=== PATIENT | male | born 1950 | race Caucasian/White ===

== ENCOUNTER 2016-09-05 21:31 | Emergency (ER) | payer OTHER ==
[~2016-09-05] VITALS: Ht 172.7 cm; Wt 74.1 kg
[~2016-09-05 21:31] MED LIST: ALBU2.5I INH; ATOR80TA PO; CARV6.25 PO; CLOP75 PO; DIGO0.12 PO; FURO1TAB93 PO; FURO80 PO; K-EF25TA PO; LISI2.5T3 PO; LORA0.5T PO; NEUR600T PO; NITR0.4S SL; ROBA750T3 PO; SPIR25 PO; ST JTAB PO; TYLE500T PO; VIAG100T PO
[2016-09-05 21:35] VITALS: BP 132/88; PULSE 110; RESP 20; TEMP 98.1; O2SAT 98
[2016-09-05 21:40] VITALS: RESP 20
--- NOTE | 2016-09-05 21:48 | PD ---
HPI Chief Complaint: Respiratory Symptoms Time Seen by Provider: 21:37 Travel History International Travel<30 days: Yes Contact w/Intl Traveler<30days: Yes Traveled to known affect area: Yes History of Present Illness HPI This 66-year-old male is complaining of shortness of breath. He says he gets short of breath tonight. He has a history of CHF and COPD. He has not smoked cigarettes but he does smoke he states now. He has a history of coronary artery disease and had quadruple bypass in 2005 and a stent placed in 2008. He has not had any recent chest pain. He is seeing his private doctor for abdominal pain. He's been going for the past 6 weeks or so he's had a CAT scan to apparently was not diagnostic and has been scheduled for a GI appointment next week. He is having some lower abdominal pain. The pain is not any worse today. He has not had chest pain today or fever or chills. He does say that about a month ago he was taken off of lisinopril because his blood pressure was too low PFSH Past Medical History Hx Anticoagulant Therapy: Yes (325MG ASA) Anemia: Yes Asthma: No Atrial Fibrillation: Yes Blood Disorders: No Anxiety: Yes Depression: No Heart Rhythm Problems: Yes Cancer: No Cardiac Catheterization: Yes Cardiomyopathy: Yes Cardiovascular Problems: Yes (a-fib) High Cholesterol: Yes Chemotherapy: No Chest Pain: Yes Congestive Heart Failure: Yes COPD: Yes Cerebrovascular Accident: Yes (TIA's 1989) Coronary Artery Disease: Yes Diabetes: No Diminished Hearing: No Endocrine: Yes Genitourinary: No Hypertension: Yes Implanted Vascular Access Dvce: Yes (PACER/DEFIBRILLATOR-[employer]) Musculoskeletal: No Neurologic: No Psychiatric: No Reproductive: No Respiratory: Yes (COPD) Immunizations Current: No Myocardial Infarction: Yes Radiation Therapy: No Sleep Apnea: No Thyroid Disease: No Past Surgical History Abdominal Surgery: Yes AICD: Yes ([employer]; PACER/AICD) Appendectomy: No Body Medical Devices: PACER X 3 SEPARATE VISITS. Cardiac Surgery: Yes Cholecystectomy: No Coronary Artery Bypass Graft: Yes (x4) Coronary Stent: Yes Joint Replacement: No Oral Surgery: Yes Pacemaker: Yes (Pacer/defibrillator) Thoracic Surgery: Yes Tonsillectomy: Yes Other Surgery: Yes (CABG X4, AICD ) Family History Family Hypercholesterolemia: Yes Social History Alcohol Use: Yes (OCC) Tobacco Use: Yes Substance Use: No Allergies-Medications (Allergen,Severity, Reaction): Coded Allergies: Cymbalta (Verified Allergy, Severe, Anaphylaxis, 09/05/16) Tramadol (Verified Allergy, Severe, THROAT SWELLING, 09/05/16) White Fish (Verified Allergy, Severe, Anaphylaxis/HIVES, 09/05/16) MRI PRECAUTION (Verified Adverse Reaction, Severe, PATIENT HAS A PACEMAKER , 09/05/16) Uncoded Allergies: MAYONAISE (Allergy, Severe, 02/19/09) ASPARTAME (Allergy, Intermediate, HYPERTENSION, 09/29/11) Reported Meds & Prescriptions Reported Meds & Active Scripts Active Reported Furosemide 40 Mg Tab 40 Mg PO HS Furosemide 80 Mg Tab 80 Mg PO DAILY Acetaminophen 325 Mg Tab 650 Mg PO Q4-6H PRN Aspirin 81 (Aspirin) 81 Mg Tabdr 81 Mg PO DAILY Clopidogrel (Clopidogrel Bisulfate) 75 Mg Tab 75 Mg PO BID Nitrostat SL (Nitroglycerin) 0.4 Mg Subl 0.4 Mg SL DIRECTED PRN 1 tablet under the tongue as needed for chest pain. Repeat every 5 minutes for a total of 3 DOSES or call 911 if NO relief. Ventolin Hfa 18 GM Inh (Albuterol Sulfate) 90 Mcg/Act Aer 2 Puff INH Q4H PRN Atorvastatin (Atorvastatin Calcium) 80 Mg Tab 80 Mg PO HS Gabapentin 600 Mg Tab 600 Mg PO TID Methocarbamol 750 Mg Tab 1,500 Mg PO TID Lorazepam 0.5 Mg Tab 0.5 Mg PO TID PRN Carvedilol 6.25 Mg Tab 6.25 Mg PO BID Digoxin 0.125 Mg Tab 0.125 Mg PO DAILY Spironolactone 25 Mg Tab 25 Mg PO DAILY Review of Systems General / Constitutional: No: Fever, Chills Eyes: No: Diploplia HENT: No: Headaches, Vertigo Cardiovascular: Positive: Dyspnea on exertion, No: Chest Pain or Discomfort, Palpitations Respiratory: Positive: Shortness of Breath, No: Cough, Wheezing, Hemoptysis Gastrointestinal: No: Nausea, Vomiting Genitourinary: No: Frequency, Dysuria Musculoskeletal: No: Myalgias, Arthralgias Skin: No Rash, No Itching Neurologic: No: Weakness, Dizziness Endocrine: No: Heat Intolerance Hematologic/Lymphatic: No: Easy Bruising Physical Exam Narrative GENERAL: Thin chronically ill appearing male SKIN: Focused skin assessment warm/dry. HEAD: Atraumatic. Normocephalic. EYES: Pupils equal and round. No scleral icterus. No injection or drainage. ENT: No nasal bleeding or discharge. Mucous membranes pink and moist. NECK: Trachea midline. No JVD. CARDIOVASCULAR: Regular rate and rhythm. No murmur appreciated. RESPIRATORY: There are bibasilar rales Breath sounds equal bilaterally. GASTROINTESTINAL: Abdomen soft, non-tender, nondistended. Hepatic and splenic margins not palpable. MUSCULOSKELETAL: No obvious deformities. No clubbing. No cyanosis. Trace edema. NEUROLOGICAL: Awake and alert. No obvious cranial nerve deficits. Motor grossly within normal limits. Normal speech. PSYCHIATRIC: Appropriate mood and affect; insight and judgment normal. Data Data Last Documented VS Vital Signs Date Time Temp Pulse Resp B/P Pulse Ox O2 Delivery O2 Flow Rate FiO2 09/05/16 21:40 Room Air 09/05/16 21:40 20 09/05/16 21:35 98.1 110 98 Orders Electrocardiogram (09/05/16 21:43) Complete Blood Count With Diff (09/05/16 21:43) Comprehensive Metabolic Panel (09/05/16 21:43) Troponin I (09/05/16 21:43) B-Type Natriuretic Peptide (09/05/16 21:43) Urinalysis - C+S If Indicated (09/05/16 21:43) Magnesium (Mg) (09/05/16 21:43) Chest, Single Ap (09/05/16 21:43) Furosemide Inj (Lasix Inj) (09/05/16 22:30) Labs Laboratory Tests Test 09/05/16 21:49 White Blood Count 10.0 TH/MM3 Red Blood Count 5.36 MIL/MM3 Hemoglobin 17.0 GM/DL Hematocrit 52.1 % Mean Corpuscular Volume 97.2 FL Mean Corpuscular Hemoglobin 31.6 PG Mean Corpuscular Hemoglobin 32.5 % Concent Red Cell Distribution Width 12.8 % Platelet Count 268 TH/MM3 Mean Platelet Volume 10.9 FL Neutrophils (%) (Auto) 73.4 % Lymphocytes (%) (Auto) 19.2 % Monocytes (%) (Auto) 4.6 % Eosinophils (%) (Auto) 2.5 % Basophils (%) (Auto) 0.3 % Neutrophils # (Auto) 7.3 TH/MM3 Lymphocytes # (Auto) 1.9 TH/MM3 Monocytes # (Auto) 0.5 TH/MM3 Eosinophils # (Auto) 0.3 TH/MM3 Basophils # (Auto) 0.0 TH/MM3 CBC Comment DIFF FINAL Differential Comment Sodium Level 139 MEQ/L Potassium Level 4.0 MEQ/L Chloride Level 103 MEQ/L Carbon Dioxide Level 29.6 MEQ/L Anion Gap 6 MEQ/L Blood Urea Nitrogen 9 MG/DL Creatinine 1.30 MG/DL Estimat Glomerular Filtration 56 ML/MIN Rate Random Glucose 131 MG/DL Calcium Level 8.6 MG/DL Magnesium Level 2.3 MG/DL Total Bilirubin 0.8 MG/DL Aspartate Amino Transf 29 U/L (AST/SGOT) Alanine Aminotransferase 25 U/L (ALT/SGPT) Alkaline Phosphatase 128 U/L Troponin I 0.03 NG/ML B-Type Natriuretic Peptide 355 PG/ML Total Protein 7.7 GM/DL Albumin 4.1 GM/DL MDM Medical Decision Making Medical Screen Exam Complete: Yes Emergency Medical Condition: Yes Medical Record Reviewed: Yes Differential Diagnosis Differential includes pneumonia, COPD, CHF Narrative Course X-ray shows cardiomegaly with bilateral patchy airspace opacities consistent with CHF. BNP is elevated at 355. Potassium is normal. Troponin is 0.03. EKG shows paced rhythm. Patient has been given 60 mg intravenous Lasix and has started to diurese. Diagnosis Primary Impression: Acute on chronic systolic CHF (congestive heart failure) Additional Instructions: Taken 120 mg of Lasix in the morning and 80 mg at night Disposition: 01 DISCHARGE HOME Condition: Stable Jeff Andres MD September 05, 2016 21:48
[2016-09-05 22:04] LABS: AUTOMATED NEUTROPHIL # 7.3 TH/MM3 (1.8-7.7); BASOPHIL % 0.3 % (0.0-2.0); EOSINOPHIL # 0.3 TH/MM3 (0-0.4); EOSINOPHIL % 2.5 % (0.0-4.0); HEMATOCRIT 52.1 % (39.0-51.0); LYMPH % 19.2 % (9.0-44.0); LYMPHOCYTE # 1.9 TH/MM3 (1.0-4.8); MEAN CELL VOLUME 97.2 FL (80.0-100.0); MEAN CORPUSCULAR HEMOGLOBIN 31.6 PG (27.0-34.0); MEAN CORPUSCULAR HGB CONC 32.5 % (32.0-36.0); MONO % 4.6 % (0.0-8.0); NEUT % 73.4 % (16.0-70.0); PLATELET COUNT 268 TH/MM3 (150-450); RED BLOOD COUNT 5.36 MIL/MM3 (4.50-5.90); RED CELL DISTRIBUTION WIDTH 12.8 % (11.6-17.2)
[2016-09-05 22:12] LABS: CHLORIDE 103 MEQ/L (98-107); SODIUM (NA) 139 MEQ/L (136-145)
[2016-09-05 22:15] LABS: HEMO FLAGS DIFF FINAL
[2016-09-05 22:16] LABS: ANION GAP 6 MEQ/L (5-15); BICARBONATE 29.6 MEQ/L (21.0-32.0); BLOOD UREA NITROGEN 9 MG/DL (7-18); MAGNESIUM 2.3 MG/DL (1.5-2.5)
--- NOTE | 2016-09-05 22:18 | RADHPO ---
EXAM DATE/TIME: 09/05/2016 22:09 [facility] COMPARISON: CHEST SINGLE AP, February 27, 2016, 12:22. INDICATIONS : Shortness of breath. MEDICAL HISTORY : Myocardial infarction. Congestive heart failure. SURGICAL HISTORY : Pacemaker. CABG. ENCOUNTER: Initial ACUITY: 1 day PAIN SCORE: 0/10 LOCATION: Bilateral chest FINDINGS: Patchy bilateral air space opacities are seen, right slightly more so than left. No infiltrate seen. No pneumothorax. Heart size stable, upper limits of normal. Patient has had previous median sternotomy. Cardiac pacer/ defibrillator are again noted. CONCLUSION: Bilateral nonspecific airspace disease. Edin Mccauley MD on September 05, 2016 at 22:15 Board Certified Radiologist. This report was verified electronically.
[2016-09-05 22:19] LABS: ALT (GPT) 25 U/L (12-78); AST (GOT) 29 U/L (15-37); GLOMERULAR FILTRATION RATE 56 ML/MIN (>89)
[2016-09-05 22:22] LABS: ALKALINE PHOSPHATASE 128 U/L (45-117)
[2016-09-05] MEDS ORDERED: GABA600T PO (22:25)
[2016-09-05] MEDS ORDERED: DIGO0.12 PO (22:25)
[2016-09-05] MEDS ORDERED: FURO40TA PO (22:25)
[2016-09-05] MEDS ORDERED: ACET325T PO (22:25)
[2016-09-05] MEDS ORDERED: LORA-373 PO (22:25)
[2016-09-05] MEDS ORDERED: VENTAER INH (22:25)
[2016-09-05] MEDS ORDERED: CLOP75TA PO (22:25)
[2016-09-05] MEDS ORDERED: METH750T PO (22:25)
[2016-09-05] MEDS ORDERED: CARV6.252 PO (22:25)
[2016-09-05] MEDS ORDERED: NITR0.4S SL (22:25)
[2016-09-05] MEDS ORDERED: SPIR25TA PO (22:25)
[2016-09-05] MEDS ORDERED: ASPI-110 PO (22:25)
[2016-09-05] MEDS ORDERED: ATOR1TAB18 PO (22:25)
[2016-09-05] MEDS ORDERED: FURO80TA PO (22:25)
[2016-09-05 22:26] LABS: TOTAL BILIRUBIN ADULT 0.8 MG/DL (0.2-1.0)
[2016-09-05] MEDS ORDERED: FUROSEMIDE 40 MG/4 ML VIAL IV PUSH ONE (22:30)
[2016-09-05 23:00] VITALS: BP 121/71
[2016-09-05 23:09] LABS: BLOOD, URINE NEG (NEG); GLUCOSE,URINE NEG (NEG); KETONE, URINE NEG (NEG); NITRITE,URINE NEG (NEG)
[2016-09-05 23:15] LABS: COMMENT (UR) CULT NOT INDICATED; CULTURE IF INDICATED CULT NOT INDICATED; RBC, URINE 0-2 /hpf (0-3); SQUAMOUS EPITHELIAL CELL URINE 0-5 /hpf (0-5); URINE COLOR STRAW (YELLW/STRAW); WBC, URINE 0-2 /hpf (0-5)
--- NOTE | 2016-09-06 10:04 | EKG ---
Date Performed: 09/05/2016 Time Performed: 21:50:52 PTAGE: 66 years EKG: Ventricular pacing Pacemaker rhythm - no further analysis Abnormal ECG PREVIOUS TRACING : 02/27/2016 17.41 DOCTOR: Shaneka Torres Interpretating Date/Time 09/06/2016 10:02:48
== END 2016-09-05 23:18 | disposition home or self-care (01) ==
LOC: PHED 21:31
DX: I50.23 Acute on chronic systolic (congestive) heart failure (principal); R94.31 Abnormal electrocardiogram [ECG] [EKG]; I48.91 Unspecified atrial fibrillation; I42.9 Cardiomyopathy, unspecified; E78.00 Pure hypercholesterolemia, unspecified; J44.9 Chronic obstructive pulmonary disease, unspecified; I10 Essential (primary) hypertension; I25.2 Old myocardial infarction; I25.10 Atherosclerotic heart disease of native coronary artery without angina pectoris; Z86.73 Personal history of transient ischemic attack (TIA), and cerebral infarction without residual deficits; Z79.82 Long term (current) use of aspirin; Z87.891 Personal history of nicotine dependence; Z95.810 Presence of automatic (implantable) cardiac defibrillator
CPT/HCPCS: 71010; 80053; 81001; 83735; 83880; 84484; 85025; 93005; 96374; 99285; J1940

== ENCOUNTER 2017-01-16 20:11 | Emergency (ER) | payer OTHER ==
[~2017-01-16] VITALS: Ht 170.2 cm; Wt 71.7 kg
[~2017-01-16 20:11] MED LIST changes: +ACET325T PO; -ALBU2.5I INH; +ASPI-110 PO; +ATOR1TAB18 PO; -ATOR80TA PO; -CARV6.25 PO; +CARV6.252 PO; -CLOP75 PO; +CLOP75TA PO; -FURO1TAB93 PO; +FURO40TA PO; -FURO80 PO; +FURO80TA PO; +GABA600T PO; -K-EF25TA PO; -LISI2.5T3 PO; +LORA-373 PO; -LORA0.5T PO; +METH750T PO; -NEUR600T PO; -ROBA750T3 PO; -SPIR25 PO; +SPIR25TA PO; -ST JTAB PO; -TYLE500T PO; +VENTAER INH; -VIAG100T PO
[2017-01-16 20:34] VITALS: BP 117/56; PULSE 90; RESP 22; TEMP 98.6; O2SAT 94
[2017-01-16 21:46] VITALS: BP 113/67; PULSE 79; RESP 15; TEMP 98.5; O2SAT 97
[2017-01-16] MEDS ORDERED: FUROSEMIDE 100 MG/10 ML VIAL IVP ONE (22:15)
[2017-01-16] MEDS ORDERED: SODIUM CHLORIDE 0.9% FLUSH 10 ML FLUSH IVF PRN (22:15)
[2017-01-16] MEDS: RESP: ALBUTEROL 2.5 MG/IPRATROPIUM 0.5 MG NEB (SCH) INH ×2 (22:17→22:45)
[2017-01-16 22:47] VITALS: BP 91/67; PULSE 78; RESP 15; TEMP 98.5; O2SAT 93
[2017-01-16 22:48] LABS: AUTOMATED NEUTROPHIL # 6.2 TH/MM3 (1.8-7.7); BASOPHIL # 0.2 TH/MM3 (0-0.2); BLOOD, URINE NEG (NEG); EOSINOPHIL # 0.1 TH/MM3 (0-0.4); EOSINOPHIL % 1.6 % (0.0-4.0); GLUCOSE,URINE NEG (NEG); HEMATOCRIT 44.9 % (39.0-51.0); KETONE, URINE NEG (NEG); LYMPH % 17.9 % (9.0-44.0); LYMPHOCYTE # 1.6 TH/MM3 (1.0-4.8); MEAN CELL VOLUME 94.3 FL (80.0-100.0); MEAN CORPUSCULAR HEMOGLOBIN 32.5 PG (27.0-34.0); MEAN CORPUSCULAR HGB CONC 34.5 % (32.0-36.0); NEUT % 71.5 % (16.0-70.0); NITRITE,URINE NEG (NEG); PLATELET COUNT 181 TH/MM3 (150-450); RED BLOOD COUNT 4.76 MIL/MM3 (4.50-5.90); RED CELL DISTRIBUTION WIDTH 12.4 % (11.6-17.2); WHITE BLOOD COUNT 8.8 TH/MM3 (4.0-11.0)
[2017-01-16 22:53] LABS: URINE COLOR YELLOW (YELLW/STRAW)
[2017-01-16 22:54] LABS: COMMENT (UR) CULT NOT INDICATED; CULTURE IF INDICATED CULT NOT INDICATED; SQUAMOUS EPITHELIAL CELL URINE 0-5 /hpf (0-5); WBC, URINE 0-2 /hpf (0-5)
--- NOTE | 2017-01-16 22:55 | PD ---
HPI Chief Complaint: Respiratory Symptoms Time Seen by Provider: 21:50 Travel History International Travel<30 days: No Contact w/Intl Traveler<30days: No Traveled to known affect area: No History of Present Illness HPI The patient is a 66-year-old male with a history of congestive heart failure and COPD who has been short of breath since yesterday afternoon. He states he occasionally coughs up white foam. He denies any fever. He denies any chest pain. He does take Lasix 80 mg in the morning and 40 before bed. He also takes spironolactone. PFSH Past Medical History Hx Anticoagulant Therapy: Yes (325MG ASA) Anemia: Yes Asthma: No Atrial Fibrillation: Yes Blood Disorders: No Anxiety: Yes Depression: No Heart Rhythm Problems: Yes (AFIB) Cancer: No Cardiac Catheterization: Yes Cardiomyopathy: Yes Cardiovascular Problems: Yes (CABG 2006, AICD 2006, AFIB, HTN) High Cholesterol: Yes Chemotherapy: No Chest Pain: Yes Congestive Heart Failure: Yes COPD: Yes Cerebrovascular Accident: Yes (1989) Coronary Artery Disease: Yes Diabetes: No Diminished Hearing: No Endocrine: Yes Genitourinary: No Hypertension: Yes Implanted Vascular Access Dvce: Yes (PACER/DEFIBRILLATOR-[employer]) Musculoskeletal: No Neurologic: No Psychiatric: No Reproductive: No Respiratory: Yes (COPD, CHF) Immunizations Current: No Myocardial Infarction: Yes Radiation Therapy: No Sleep Apnea: No Thyroid Disease: No Tetanus Vaccination: < 5 Years Influenza Vaccination: Yes ?: Not Past Surgical History Abdominal Surgery: Yes AICD: Yes Appendectomy: No Body Medical Devices: PACER X 3 SEPARATE VISITS. Cardiac Surgery: Yes Cholecystectomy: No Coronary Artery Bypass Graft: Yes Coronary Stent: Yes Joint Replacement: No Oral Surgery: Yes Pacemaker: Yes (Pacer/defibrillator) Thoracic Surgery: Yes Tonsillectomy: Yes Other Surgery: Yes (CABG X4, AICD ) Family History Family Hypercholesterolemia: Yes Social History Alcohol Use: No Tobacco Use: Yes Substance Use: No Allergies-Medications (Allergen,Severity, Reaction): Coded Allergies: Fish Containing Products (Verified Allergy, Severe, Anaphylaxis/HIVES, ) duloxetine (Verified Allergy, Severe, Anaphylaxis, 01/16/17) tramadol (Verified Allergy, Severe, THROAT SWELLING, 01/16/17) MRI PRECAUTION (Verified Adverse Reaction, Severe, PATIENT HAS A PACEMAKER , 01/16/17) Uncoded Allergies: MAYONAISE (Allergy, Severe, 02/19/09) ASPARTAME (Allergy, Intermediate, HYPERTENSION, 09/29/11) Reported Meds & Prescriptions Reported Meds & Active Scripts Active Reported Furosemide 40 Mg Tab 40 Mg PO HS Furosemide 80 Mg Tab 80 Mg PO DAILY Aspirin 81 (Aspirin) 81 Mg Tabdr 81 Mg PO DAILY Clopidogrel (Clopidogrel Bisulfate) 75 Mg Tab 75 Mg PO DAILY Nitrostat SL (Nitroglycerin) 0.4 Mg Subl 0.4 Mg SL DIRECTED PRN 1 tablet under the tongue as needed for chest pain. Repeat every 5 minutes for a total of 3 DOSES or call 911 if NO relief. Atorvastatin (Atorvastatin Calcium) 80 Mg Tab 80 Mg PO HS Gabapentin 600 Mg Tab 600 Mg PO TID Methocarbamol 750 Mg Tab 1,500 Mg PO TID Lorazepam 0.5 Mg Tab 0.5 Mg PO TID PRN Carvedilol 6.25 Mg Tab 6.25 Mg PO BID Digoxin 0.125 Mg Tab 0.125 Mg PO DAILY Spironolactone 25 Mg Tab 25 Mg PO DAILY Review of Systems Except as stated in HPI: all other systems reviewed are Neg Physical Exam Narrative GENERAL: The patient is alert, oriented 3 in no apparent distress. SKIN: Focused skin assessment warm/dry. HEAD: Atraumatic. Normocephalic. EYES: Pupils equal and round. No scleral icterus. No injection or drainage. ENT: No nasal bleeding or discharge. Mucous membranes pink and moist. NECK: Trachea midline. No JVD. CARDIOVASCULAR: Regular rate and rhythm. No murmur appreciated. RESPIRATORY: No accessory muscle use. Clear to auscultation. Breath sounds equal bilaterally. GASTROINTESTINAL: Abdomen soft, non-tender, nondistended. Hepatic and splenic margins not palpable. MUSCULOSKELETAL: No obvious deformities. No clubbing. No cyanosis. No edema. NEUROLOGICAL: Awake and alert. No obvious cranial nerve deficits. Motor grossly within normal limits. Normal speech. PSYCHIATRIC: Appropriate mood and affect; insight and judgment normal. Data Data Last Documented VS Vital Signs Date Time Temp Pulse Resp B/P (MAP) Pulse Ox O2 Delivery O2 Flow Rate FiO2 01/16/17 22:47 94 Nasal Cannula 2.00 01/16/17 22:47 98.5 78 15 91/67 (75) Orders Orders Electrocardiogram (01/16/17 21:07) Complete Blood Count With Diff (01/16/17 22:08) Comprehensive Metabolic Panel (01/16/17 22:08) B-Type Natriuretic Peptide (01/16/17 22:08) Magnesium (Mg) (01/16/17 22:08) Troponin I (01/16/17 22:08) Urinalysis - C+S If Indicated (01/16/17 22:08) Iv Access Insert/Monitor (01/16/17 22:08) Electrocardiogram (01/16/17 22:08) Ecg Monitoring (01/16/17 22:08) Oximetry (01/16/17 22:08) Oxygen Administration (01/16/17 22:08) Sodium Chloride 0.9% Flush (Ns Flush) (01/16/17 22:15) Furosemide Inj (Lasix Inj) (01/16/17 22:15) Albuterol-Ipratropium Neb (Duoneb Neb) (01/16/17 22:15) Chest, Pa & Lat (01/16/17 22:55) Labs Laboratory Tests Test 01/16/17 22:30 White Blood Count 8.8 TH/MM3 Red Blood Count 4.76 MIL/MM3 Hemoglobin 15.5 GM/DL Hematocrit 44.9 % Mean Corpuscular Volume 94.3 FL Mean Corpuscular Hemoglobin 32.5 PG Mean Corpuscular Hemoglobin Concent 34.5 % Red Cell Distribution Width 12.4 % Platelet Count 181 TH/MM3 Mean Platelet Volume 10.8 FL Neutrophils (%) (Auto) 71.5 % Lymphocytes (%) (Auto) 17.9 % Monocytes (%) (Auto) 7.0 % Eosinophils (%) (Auto) 1.6 % Basophils (%) (Auto) 2.0 % Neutrophils # (Auto) 6.2 TH/MM3 Lymphocytes # (Auto) 1.6 TH/MM3 Monocytes # (Auto) 0.6 TH/MM3 Eosinophils # (Auto) 0.1 TH/MM3 Basophils # (Auto) 0.2 TH/MM3 CBC Comment DIFF FINAL Differential Comment Urine Color YELLOW Urine Turbidity CLEAR Urine pH 6.0 Urine Specific [place] 1.016 Urine Protein NEG mg/dL Urine Glucose (UA) NEG mg/dL Urine Ketones NEG mg/dL Urine Occult Blood NEG Urine Nitrite NEG Urine Bilirubin NEG Urine Leukocyte Esterase NEG Urine WBC 0-2 /hpf Urine Squamous Epithelial Cells 0-5 /hpf Microscopic Urinalysis Comment CULT NOT INDICATED Blood Urea Nitrogen 22 MG/DL Creatinine 1.20 MG/DL Random Glucose 121 MG/DL Total Protein 7.2 GM/DL Albumin 3.9 GM/DL Calcium Level 8.4 MG/DL Magnesium Level 2.3 MG/DL Alkaline Phosphatase 87 U/L Aspartate Amino Transf (AST/SGOT) 15 U/L Alanine Aminotransferase (ALT/SGPT) 17 U/L Total Bilirubin 0.6 MG/DL Sodium Level 138 MEQ/L Potassium Level 3.9 MEQ/L Chloride Level 104 MEQ/L Carbon Dioxide Level 26.4 MEQ/L Anion Gap 8 MEQ/L Estimat Glomerular Filtration Rate 61 ML/MIN Troponin I 0.02 NG/ML B-Type Natriuretic Peptide 207 PG/ML [facility] Medical Decision Making Medical Screen Exam Complete: Yes Emergency Medical Condition: Yes Medical Record Reviewed: Yes Interpretation(s) The PA and lateral chest x-ray is normal. The CBC is normal. The complete metabolic profile shows a BUN of 22, creatinine 1.2, GFR of 61 and calcium 8.4 but is otherwise unremarkable. The troponin I is normal. The magnesium level is normal. The BNP is 207. The urinalysis is normal. Differential Diagnosis COPD, congestive heart failure, pneumonia, pulmonary embolus unlikely, electrolyte disorder, anemia, renal insufficiency Narrative Course The patient appears to have a combination of COPD and congestive heart failure. He did get better both with a DuoNeb treatments and the Lasix. It is now 0021 and the patient feels much better. Diagnosis Primary Impression: Acute on chronic systolic CHF (congestive heart failure) Additional Impression: COPD with acute exacerbation Additional Instructions: Follow-up with your primary care physician Thursday. He may wish to adjust your Lasix. Med/Other Pt SpecificInfo: No Change to Meds Disposition: 01 DISCHARGE HOME Condition: Stable Curtis Ulloa MD Jan 16, 2017 22:55
[2017-01-16 22:56] LABS: CHLORIDE 104 MEQ/L (98-107); POTASSIUM 3.9 MEQ/L (3.5-5.1); SODIUM (NA) 138 MEQ/L (136-145)
[2017-01-16 22:59] LABS: ANION GAP 8 MEQ/L (5-15); BICARBONATE 26.4 MEQ/L (21.0-32.0); MAGNESIUM 2.3 MG/DL (1.5-2.5)
[2017-01-16 23:00] LABS: BLOOD UREA NITROGEN 22 MG/DL (7-18)
[2017-01-16 23:02] LABS: ALT (GPT) 17 U/L (12-78); AST (GOT) 15 U/L (15-37)
[2017-01-16 23:03] LABS: GLOMERULAR FILTRATION RATE 61 ML/MIN (>89)
[2017-01-16 23:04] LABS: TOTAL BILIRUBIN ADULT 0.6 MG/DL (0.2-1.0)
[2017-01-16 23:05] LABS: ALKALINE PHOSPHATASE 87 U/L (45-117)
[2017-01-16 23:07] LABS: HEMO FLAGS DIFF FINAL
--- NOTE | 2017-01-17 00:04 | RADRPT ---
EXAM DATE/TIME: 01/16/2017 23:09 [facility] COMPARISON: CHEST PA & LAT, October 12, 2014, 12:41. INDICATIONS : Productive cough and shortness of breath. MEDICAL HISTORY : Chronic obstructive pulmonary disease. Congestive heart failure. Hypertension. AFIB, Myocardial i nfarction SURGICAL HISTORY : CABG. Pacemaker. ENCOUNTER: Initial ACUITY: 1 day PAIN SCORE: 0/10 LOCATION: Bilateral chest FINDINGS: PA and lateral views of the chest demonstrate the lungs to be symmetrically aerated without evidence of mass, infiltrate or effusion. Heart size is normal with findings of prior CABG. Left subclavian bi polar pacer/defibrillator is radiographically intact. Osseous structures are intact with a mild dextr oscoliosis of the thoracolumbar spine and associated degenerative spurring. CONCLUSION: No acute cardiopulmonary process to explain current clinical symptoms. Aakash Garcia MD on January 16, 2017 at 23:52 Board Certified Radiologist. This report was verified electronically.
[2017-01-17 01:03] VITALS: BP 103/62; TEMP 98.4
--- NOTE | 2017-01-17 06:00 | EKG ---
Date Performed: 01/16/2017 Time Performed: 21:07:37 PTAGE: 66 years EKG: ELECTRONIC VENTRICULAR PACEMAKER ABNORMAL RHYTHM ECG PREVIOUS TRACING : 09/05/2016 21.50 DOCTOR: El Jacome Interpretating Date/Time 01/17/2017 05:59:54
== END 2017-01-17 01:15 | disposition home or self-care (01) ==
LOC: PHED 20:11
DX: I50.23 Acute on chronic systolic (congestive) heart failure (principal); J44.1 Chronic obstructive pulmonary disease with (acute) exacerbation; I48.91 Unspecified atrial fibrillation; I11.0 Hypertensive heart disease with heart failure; I25.2 Old myocardial infarction
CPT/HCPCS: 71020; 80053; 81001; 83735; 83880; 84484; 85025; 93005; 94640; 94664; 96374; 99285; J1940

== ENCOUNTER 2017-02-15 10:22 | Emergency (ER) | payer OTHER ==
[~2017-02-15 10:22] MED LIST changes: -ACET325T PO; -VENTAER INH
[2017-02-15 10:24] VITALS: BP 122/69; PULSE 83; RESP 14; TEMP 99.1; O2SAT 98
[2017-02-15 11:53] VITALS: BP 118/82; PULSE 87; RESP 18; TEMP 98.5; O2SAT 99
--- NOTE | 2017-02-15 12:53 | PD ---
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 He comes in today because his low battery chime went off several days running. He doesn't have any symptoms. He feels fine. The defibrillator did not fire. He has no palpitations or presyncopal symptoms. He notified his primary care physician who was working on getting him cardiology follow-up. He recently changed insurances to [employer] doesn't have a replenisher at the moment. Symptoms severity is mild PFSH Past Medical History Hx Anticoagulant Therapy: Yes (325MG ASA) Anemia: Yes Arthritis: No Asthma: No Atrial Fibrillation: Yes Autoimmune Disease: No Blood Disorders: No Anxiety: Yes Depression: No Heart Rhythm Problems: Yes (AFIB) Cancer: No Cardiac Catheterization: Yes Cardiomyopathy: Yes Cardiovascular Problems: Yes High Cholesterol: Yes Chemotherapy: No Chest Pain: Yes Congestive Heart Failure: Yes COPD: Yes Cerebrovascular Accident: Yes (1989) Coronary Artery Disease: Yes Diabetes: No Diminished Hearing: No Endocrine: Yes Gastrointestinal Disorders: No GERD: No Glaucoma: No Genitourinary: No Headaches: No Hepatitis: No Hiatal Hernia: No Heparin Induced Thrombocytopen: No Hypertension: Yes Immune Disorder: No Implanted Vascular Access Dvce: Yes (PACER/DEFIBRILLATOR-[employer]) Kidney Stones: No Musculoskeletal: No Neurologic: No Psychiatric: No Reproductive: No Respiratory: Yes (COPD, CHF) Immunizations Current: No Migraines: No Myocardial Infarction: Yes Radiation Therapy: No Renal Failure: No Seizures: No Sickle Cell Disease: No Sleep Apnea: No Thyroid Disease: No Ulcer: No Past Surgical History Abdominal Surgery: Yes AICD: Yes Appendectomy: No Arteriovenous Shunt: No Body Medical Devices: PACER X 3 SEPARATE VISITS. Cardiac Surgery: Yes Cholecystectomy: No Coronary Artery Bypass Graft: Yes Coronary Stent: Yes Ear Surgery: No Endocrine Surgery: No Eye Surgery: No Genitourinary Surgery: No Gynecologic Surgery: No Insulin Pump: No Joint Replacement: No Neurologic Surgery: No Oral Surgery: Yes Pacemaker: Yes (Pacer/defibrillator) Thoracic Surgery: Yes Tonsillectomy: Yes Other Surgery: Yes (CABG X4, AICD ) Family History Family Myocardial Infarction: No Family Hypercholesterolemia: Yes Social History Alcohol Use: No Tobacco Use: Yes Substance Use: No Allergies-Medications (Allergen,Severity, Reaction): Coded Allergies: Fish Containing Products (Verified Allergy, Severe, Anaphylaxis/HIVES, ) duloxetine (Verified Allergy, Severe, Anaphylaxis, 01/16/17) tramadol (Verified Allergy, Severe, THROAT SWELLING, 01/16/17) MRI PRECAUTION (Verified Adverse Reaction, Severe, PATIENT HAS A PACEMAKER , 01/16/17) Uncoded Allergies: MAYONAISE (Allergy, Severe, 02/19/09) ASPARTAME (Allergy, Intermediate, HYPERTENSION, 09/29/11) Reported Meds & Prescriptions Reported Meds & Active Scripts Active Reported Furosemide 40 Mg Tab 40 Mg PO HS Furosemide 80 Mg Tab 80 Mg PO DAILY Aspirin 81 (Aspirin) 81 Mg Tabdr 81 Mg PO DAILY Clopidogrel (Clopidogrel Bisulfate) 75 Mg Tab 75 Mg PO DAILY Nitrostat SL (Nitroglycerin) 0.4 Mg Subl 0.4 Mg SL DIRECTED PRN 1 tablet under the tongue as needed for chest pain. Repeat every 5 minutes for a total of 3 DOSES or call 911 if NO relief. Atorvastatin (Atorvastatin Calcium) 80 Mg Tab 80 Mg PO HS Gabapentin 600 Mg Tab 600 Mg PO TID Methocarbamol 750 Mg Tab 1,500 Mg PO TID Lorazepam 0.5 Mg Tab 0.5 Mg PO TID PRN Carvedilol 6.25 Mg Tab 6.25 Mg PO BID Digoxin 0.125 Mg Tab 0.125 Mg PO DAILY Spironolactone 25 Mg Tab 25 Mg PO DAILY Review of Systems General / Constitutional: No: Fever HENT: No: Headaches Cardiovascular: No: Chest Pain or Discomfort Respiratory: No: Cough Physical Exam Narrative CARDIOVASCULAR: Regular rate and rhythm without murmur. Extremities showed no edema or varicosities. RESPIRATORY: Respiratory effort unlabored, no retractions or use of accessory muscles. Breath sounds are clear and symmetric. GASTROINTESTINAL: Abdomen soft, non-tender, nondistended. Positive bowel sounds. No hepato-splenomegaly, or palpable masses. No guarding. Data Data Last Documented VS Vital Signs Date Time Temp Pulse Resp B/P (MAP) Pulse Ox O2 Delivery O2 Flow Rate FiO2 02/15/17 11:53 98.5 87 18 118/82 (94) 99 Room Air Orders Orders Ed Discharge Order (02/15/17 12:42) MDM Medical Decision Making Medical Screen Exam Complete: Yes Emergency Medical Condition: Yes Medical Record Reviewed: Yes Differential Diagnosis Low pacemaker battery, device malfunction, anxiety Narrative Course I have reviewed the patient's electronic medical record. Patient is asymptomatic and having a low battery alarm for a few days. I reviewed in detail with the [employer] expert They assure me that device has a minimum of 3-4 months battery life when they initiate the chiming He should follow through with his primary physician to make sure he gets timely follow-up but nothing emergent needs to be done today. Diagnosis Primary Impression: Pacemaker at end of battery life Additional Instructions: Get pacemaker battery changed in the near future Med/Other Pt SpecificInfo: Other Disposition: 01 DISCHARGE HOME Condition: Stable Mitul Carranza MD Feb 15, 2017 12:53
== END 2017-02-15 13:06 | disposition home or self-care (01) ==
LOC: NEPD 10:22
DX: Z95.810 Presence of automatic (implantable) cardiac defibrillator (principal); Z45.010 Encounter for checking and testing of cardiac pacemaker pulse generator [battery]; I10 Essential (primary) hypertension; E78.00 Pure hypercholesterolemia, unspecified; I25.2 Old myocardial infarction; Z72.0 Tobacco use; Z79.82 Long term (current) use of aspirin; Z86.2 Personal history of diseases of the blood and blood-forming organs and certain disorders involving the immune mechanism; Z86.79 Personal history of other diseases of the circulatory system; Z86.59 Personal history of other mental and behavioral disorders; Z87.09 Personal history of other diseases of the respiratory system
CPT/HCPCS: 99282

== ENCOUNTER 2017-05-02 17:02 | Inpatient (IN) | payer OTHER, MEDICARE ==
[~2017-05-02] VITALS: Ht 175.3 cm; Wt 67.0 kg
[~2017-05-02 17:02] MED LIST changes: -ASPI-110 PO; +ASPI1TAB57 PO; -ATOR1TAB18 PO; +ATOR80TA45 PO; -LORA-373 PO; +LORA0.5T PO
[2017-05-02 17:04] VITALS: BP 120/73; PULSE 101; RESP 21; TEMP 99.1; O2SAT 93
[2017-05-02 17:38] VITALS: RESP 24; O2SAT 95
--- NOTE | 2017-05-02 17:43 | PD ---
HPI Chief Complaint: Respiratory Symptoms Time Seen by Provider: 17:33 Travel History International Travel<30 days: No Contact w/Intl Traveler<30days: No Traveled to known affect area: No History of Present Illness HPI Patient is a 66-year-old male presenting to the emergency department for evaluation of shortness of breath. Patient states it started today. He reports that he started coughing and experiencing nasal congestion and postnasal drip yesterday. He states that he is unable to produce any sputum when he coughs. He denies any fever, chills, nausea, vomiting, chest pain, headache. He reports a past medical history significant for COPD, CHF, hypertension, coronary artery disease. He had a long history of tobacco use but quit 3 months ago. He does not use any inhalers at home. Shortness of breath was exacerbated by the cold, it is unrelieved by anything. PFSH Past Medical History Hx Anticoagulant Therapy: Yes (on aspirin and Plavix) Anemia: Yes Atrial Fibrillation: Yes Anxiety: Yes Cardiac Catheterization: Yes Cardiomyopathy: Yes High Cholesterol: Yes Chest Pain: Yes Congestive Heart Failure: Yes COPD: Yes Coronary Artery Disease: Yes Hypertension: Yes Implanted Vascular Access Dvce: Yes (PACER/DEFIBRILLATOR-AdexLinkTRONIC) Myocardial Infarction: Yes Past Surgical History Abdominal Surgery: Yes AICD: Yes Body Medical Devices: pacemaker/defibrillator Coronary Artery Bypass Graft: Yes Coronary Stent: Yes Oral Surgery: Yes Pacemaker: Yes (Pacer/defibrillator) Thoracic Surgery: Yes Tonsillectomy: Yes Family History Family Hypercholesterolemia: Yes Social History Alcohol Use: No Tobacco Use: No (quit 3 months ago) Substance Use: No Allergies-Medications (Allergen,Severity, Reaction): Coded Allergies: Fish Containing Products (Verified Allergy, Severe, Anaphylaxis/HIVES, ) Food Additives (Verified Allergy, Severe, ITCHING, 05/02/17) MAYONAISE duloxetine (Verified Allergy, Severe, Anaphylaxis, 01/16/17) tramadol (Verified Allergy, Severe, THROAT SWELLING, 01/16/17) MRI PRECAUTION (Verified Adverse Reaction, Severe, PATIENT HAS A PACEMAKER , 01/16/17) Reported Meds & Prescriptions Reported Meds & Active Scripts Active Reported Furosemide 40 Mg Tab 40 Mg PO HS Furosemide 80 Mg Tab 80 Mg PO DAILY Aspirin 81 (Aspirin) 81 Mg Tabdr 81 Mg PO DAILY Clopidogrel (Clopidogrel Bisulfate) 75 Mg Tab 75 Mg PO DAILY Nitrostat SL (Nitroglycerin) 0.4 Mg Subl 0.4 Mg SL DIRECTED PRN 1 tablet under the tongue as needed for chest pain. Repeat every 5 minutes for a total of 3 DOSES or call 911 if NO relief. Atorvastatin (Atorvastatin Calcium) 80 Mg Tab 80 Mg PO HS Gabapentin 600 Mg Tab 600 Mg PO TID Methocarbamol 750 Mg Tab 1,500 Mg PO TID Lorazepam 0.5 Mg Tab 0.5 Mg PO TID PRN Carvedilol 6.25 Mg Tab 6.25 Mg PO BID Digoxin 0.125 Mg Tab 0.125 Mg PO DAILY Spironolactone 25 Mg Tab 25 Mg PO DAILY Review of Systems Except as stated in HPI: all other systems reviewed are Neg General / Constitutional: No: Fever, Chills HENT: Positive: Rhinitis, Congestion, No: Headaches, Sore Throat, Neck Pain, Earache Cardiovascular: Positive: Dyspnea on exertion, No: Chest Pain or Discomfort Respiratory: Positive: Cough, Shortness of Breath, Orthopnea Gastrointestinal: No: Nausea, Vomiting, Diarrhea, Abdominal Pain Genitourinary: No: Dysuria Musculoskeletal: No: Myalgias Neurologic: No: Weakness, Dizziness, Syncope, Focal Abnormalities Physical Exam Narrative GENERAL: Well-developed, well-nourished, alert male. SKIN: Warm and dry. HEAD: Atraumatic. Normocephalic. EYES: Pupils equal and round. No scleral icterus. No injection or drainage. ENT: No nasal bleeding or discharge. Mucous membranes pink and moist. NECK: Trachea midline. No JVD. CARDIOVASCULAR: Regular rate and rhythm. RESPIRATORY: Tachypneic, No accessory muscle use. Expiratory wheezing throughout GASTROINTESTINAL: Abdomen soft, non-tender, nondistended. Hepatic and splenic margins not palpable. MUSCULOSKELETAL: Extremities without clubbing, cyanosis, or edema. No obvious deformities. NEUROLOGICAL: Awake and alert. No obvious cranial nerve deficits. Motor grossly within normal limits. Five out of 5 muscle strength in the arms and legs. Normal speech. PSYCHIATRIC: Appropriate mood and affect; insight and judgment normal. Data Data Last Documented VS Vital Signs Date Time Temp Pulse Resp B/P (MAP) Pulse Ox O2 Delivery O2 Flow Rate FiO2 05/02/17 17:38 24 95 Nasal Cannula 2.00 05/02/17 17:30 98 05/02/17 17:04 99.1 Orders Orders Complete Blood Count With Diff (05/02/17 17:33) Comprehensive Metabolic Panel (05/02/17 17:33) B-Type Natriuretic Peptide (05/02/17 17:33) Magnesium (Mg) (05/02/17 17:33) Iv Access Insert/Monitor (05/02/17 17:33) Ecg Monitoring (05/02/17 17:33) Oximetry (05/02/17 17:33) Oxygen Administration (05/02/17 17:33) Chest, Single Ap (05/02/17 17:33) Sodium Chloride 0.9% Flush (Ns Flush) (05/02/17 17:45) Methylprednisolone So Succ Inj (Solumedr (05/02/17 17:45) Albuterol-Ipratropium Neb (Duoneb Neb) (05/02/17 17:45) Budesonide Neb (Pulmicort Respule Neb) (05/02/17 17:45) Admit Order (Ed Use Only) (05/02/17 19:07) Labs Laboratory Tests Test 05/02/17 17:45 White Blood Count 7.2 TH/MM3 Red Blood Count 5.09 MIL/MM3 Hemoglobin 17.1 GM/DL Hematocrit 49.3 % Mean Corpuscular Volume 97.0 FL Mean Corpuscular Hemoglobin 33.7 PG Mean Corpuscular Hemoglobin Concent 34.7 % Red Cell Distribution Width 13.4 % Platelet Count 198 TH/MM3 Mean Platelet Volume 10.9 FL Neutrophils (%) (Auto) 73.0 % Lymphocytes (%) (Auto) 13.7 % Monocytes (%) (Auto) 10.3 % Eosinophils (%) (Auto) 2.0 % Basophils (%) (Auto) 1.0 % Neutrophils # (Auto) 5.2 TH/MM3 Lymphocytes # (Auto) 1.0 TH/MM3 Monocytes # (Auto) 0.7 TH/MM3 Eosinophils # (Auto) 0.1 TH/MM3 Basophils # (Auto) 0.1 TH/MM3 CBC Comment DIFF FINAL Differential Comment Blood Urea Nitrogen 17 MG/DL Creatinine 1.25 MG/DL Random Glucose 93 MG/DL Total Protein 7.8 GM/DL Albumin 4.2 GM/DL Calcium Level 9.1 MG/DL Magnesium Level 2.1 MG/DL Alkaline Phosphatase 96 U/L Aspartate Amino Transf (AST/SGOT) 21 U/L Alanine Aminotransferase (ALT/SGPT) 21 U/L Total Bilirubin 0.6 MG/DL Sodium Level 139 MEQ/L Potassium Level 3.8 MEQ/L Chloride Level 102 MEQ/L Carbon Dioxide Level 30.3 MEQ/L Anion Gap 7 MEQ/L Estimat Glomerular Filtration Rate 58 ML/MIN B-Type Natriuretic Peptide 235 PG/ML MDM Medical Decision Making Medical Screen Exam Complete: Yes Emergency Medical Condition: Yes Interpretation(s) Vital Signs Date Time Temp Pulse Resp B/P (MAP) Pulse Ox O2 Delivery O2 Flow Rate FiO2 05/02/17 17:04 99.1 101 21 120/73 (89) 93 Differential Diagnosis Bronchitis versus pneumonia versus COPD exacerbation versus CHF versus other Narrative Course Patient presented with 1 day of shortness of breath that was preceded by one day of cough and nasal congestion, postnasal drip. Patient was tachypneic and tachycardic and hypoxic on arrival. Labs and imaging were ordered and pending. Budesonide and DuoNeb as well as Solu-Medrol ordered. Patient placed on O2 at 2 L. CBC is unremarkable Chemistry no acute findings BNP 235 Patient continues to report feeling short of breath, he was ambulated off of oxygen emergency department his oxygen saturation upon return to his room was 92 %. At this time patient was admitted for observation to optimize respiratory status. Admitting orders placed. Diagnosis Primary Impression: COPD exacerbation Additional Impressions: Hypoxia CHF (congestive heart failure) Qualified Codes: I50.9 - Heart failure, unspecified Admitting Information Admitting Physician Requests: Observation Condition: Stable Dacia Pryor May 02, 2017 17:43
[2017-05-02] MEDS: RESP: ALBUTEROL 2.5 MG/IPRATROPIUM 0.5 MG NEB (SCH) INH ×2 (17:44→17:45)
[2017-05-02] MEDS ORDERED: methylPREDNISolone SOD SUCC 125 MG/2 ML VIAL IV PUSH ONE (17:45)
[2017-05-02] MEDS ORDERED: RESP: BUDESONIDE 0.5 MG/2 ML NEB NEB ONE (17:45)
[2017-05-02] MEDS ORDERED: SODIUM CHLORIDE 0.9% FLUSH 10 ML FLUSH IVF PRN (17:45)
--- NOTE | 2017-05-02 18:01 | RADRPT ---
EXAM DATE/TIME: 05/02/2017 17:41 [facility] COMPARISON: CHEST PA & LAT, January 16, 2017, 23:09. INDICATIONS : Short of breath. MEDICAL HISTORY : Chronic obstructive pulmonary disease. Congestive heart failure. Hypertension. AFIB, Myocardial infar ction SURGICAL HISTORY : CABG. Pacemaker. ENCOUNTER: Initial ACUITY: 1 day PAIN SCORE: 0/10 LOCATION: Bilateral chest FINDINGS: The lungs are clear without infiltrate, nodule, or mass. There is no appreciable pleural effusion fo r technique. Heart and mediastinum are unremarkable. Left subclavian transvenous pacer wires are pre sent with tips in the right atrium and right ventricle. There is evidence for prior median sternotomy . CONCLUSION: No acute cardiopulmonary disease. Dominique Velasquez MD on May 02, 2017 at 17:58 Board Certified Radiologist. This report was verified electronically.
[2017-05-02 18:22] LABS: AUTOMATED NEUTROPHIL # 5.2 TH/MM3 (1.8-7.7); BASOPHIL # 0.1 TH/MM3 (0-0.2); EOSINOPHIL # 0.1 TH/MM3 (0-0.4); HEMATOCRIT 49.3 % (39.0-51.0); HEMOGLOBIN 17.1 GM/DL (13.0-17.0); LYMPH % 13.7 % (9.0-44.0); MEAN CORPUSCULAR HEMOGLOBIN 33.7 PG (27.0-34.0); MEAN CORPUSCULAR HGB CONC 34.7 % (32.0-36.0); MEAN PLATELET VOLUME 10.9 FL (7.0-11.0); MONO % 10.3 % (0.0-8.0); MONOCYTE # 0.7 TH/MM3 (0-0.9); PLATELET COUNT 198 TH/MM3 (150-450); RED BLOOD COUNT 5.09 MIL/MM3 (4.50-5.90); RED CELL DISTRIBUTION WIDTH 13.4 % (11.6-17.2); WHITE BLOOD COUNT 7.2 TH/MM3 (4.0-11.0)
[2017-05-02 18:34] LABS: ALBUMIN 4.2 GM/DL (3.4-5.0); ALT (GPT) 21 U/L (12-78); AST (GOT) 21 U/L (15-37); BICARBONATE 30.3 MEQ/L (21.0-32.0); BLOOD UREA NITROGEN 17 MG/DL (7-18); CALCIUM 9.1 MG/DL (8.5-10.1); CHLORIDE 102 MEQ/L (98-107); CREATININE 1.25 MG/DL (0.60-1.30); GLOMERULAR FILTRATION RATE 58 ML/MIN (>89); GLUCOSE,RANDOM 93 MG/DL (74-106); MAGNESIUM 2.1 MG/DL (1.5-2.5); SODIUM (NA) 139 MEQ/L (136-145)
[2017-05-02 18:35] LABS: ALKALINE PHOSPHATASE 96 U/L (45-117); TOTAL BILIRUBIN ADULT 0.6 MG/DL (0.2-1.0); TOTAL PROTEIN 7.8 GM/DL (6.4-8.2)
[2017-05-02 19:13] VITALS: PULSE 92; RESP 20; O2SAT 92
--- NOTE | 2017-05-02 19:14 | HHI.HP ---
[facility] Red Horan MD Admission Diagnosis COPD EXACERBATION Diagnoses: (1) COPD (chronic obstructive pulmonary disease) Diagnosis: Principal (2) CHF (congestive heart failure) Diagnosis: Principal (3) A-fib Diagnosis: Principal (4) HTN (hypertension), benign Diagnosis: Principal Travel History International Travel<30 Days: No Contact w/Intl Traveler <30 Da: No Traveled to Known Affected Are: No History of Present Illness This is a 66-year-old male with a PMH of HTN, A. fib, CHF (Echo 03/23/15 w/ EF 20-25%), COPD and Hyperlipidemia who presented to the ER w/ complaints of SOB. States symptoms started earlier today, associated w/ non-productive cough and congestion. Symptoms worse w/ exertion/ambulation, improved at rest. Moderate to severe. Denies fever, chills or chest pain. No sick contacts. H/o tobacco abuse, quit few months ago. On arrival, BP 120/73, HR 101, O2 sat 93% on RA, Temp 99.1. CBC essentially unremarkable. Chemistry unremarkable. BNP 235. CXR with no acute findings. S/p DuoNeb and Solu-Medrol w/ some improvement, however developed hypoxia w/ O2 90's while ambulating and significant dyspnea. Review of Systems Except as stated in HPI: all other systems reviewed are Neg ROS: 14 point review of systems otherwise negative. Past Family Social History Past Medical History PMH: HTN, A. fib, CHF (Echo 03/23/15 w/ EF 20-25%), COPD and Hyperlipidemia Past Surgical History PAST SURGICAL HISTORY: AICD, CABG, Tonsillectomy Allergies: Coded Allergies: Fish Containing Products (Verified Allergy, Severe, Anaphylaxis/HIVES, ) Food Additives (Verified Allergy, Severe, ITCHING, 05/02/17) MAYONAISE duloxetine (Verified Allergy, Severe, Anaphylaxis, 01/16/17) tramadol (Verified Allergy, Severe, THROAT SWELLING, 01/16/17) MRI PRECAUTION (Verified Adverse Reaction, Severe, PATIENT HAS A PACEMAKER , 01/16/17) Family History PAST FAMILY HISTORY: Reviewed. No h/o DM or CAD Social History PAST SOCIAL HISTORY: Negative for alcohol or drugs. History of tobacco, quit 3 months ago. Physical Exam Vital Signs Vital Signs Date Time Temp Pulse Resp B/P (MAP) Pulse Ox O2 Delivery O2 Flow Rate FiO2 05/02/17 19:13 92 20 92 05/02/17 17:38 24 95 Nasal Cannula 2.00 05/02/17 17:38 95 05/02/17 17:30 98 24 95 Nasal Cannula 2.00 05/02/17 17:04 99.1 101 21 120/73 (89) 93 Physical Exam PE: GENERAL: Very pleasant middle-aged white male in no acute distress. HEENT: PERRLA, EOMI. No scleral icterus or conjunctival pallor. No lid lag or facial droop. CARDIOVASCULAR: Regular rate and rhythm. No obvious murmurs to auscultation. No chest tenderness to palpation. RESPIRATORY: No obvious rhonchi. +expiratory wheezing bilaterally. Breath sounds equal bilaterally. GASTROINTESTINAL: Abdomen soft, non-tender, nondistended. BS normal. MUSCULOSKELETAL: Extremities without clubbing, cyanosis, or edema. No obvious deformities. NEUROLOGICAL: Awake, alert and oriented x4. No focal neurologic deficits. Moving both upper and lower extremities spontaneously. Laboratory Laboratory Tests Test 05/02/17 17:45 White Blood Count 7.2 Red Blood Count 5.09 Hemoglobin 17.1 Hematocrit 49.3 Mean Corpuscular Volume 97.0 Mean Corpuscular Hemoglobin 33.7 Mean Corpuscular Hemoglobin Concent 34.7 Red Cell Distribution Width 13.4 Platelet Count 198 Mean Platelet Volume 10.9 Neutrophils (%) (Auto) 73.0 Lymphocytes (%) (Auto) 13.7 Monocytes (%) (Auto) 10.3 Eosinophils (%) (Auto) 2.0 Basophils (%) (Auto) 1.0 Neutrophils # (Auto) 5.2 Lymphocytes # (Auto) 1.0 Monocytes # (Auto) 0.7 Eosinophils # (Auto) 0.1 Basophils # (Auto) 0.1 CBC Comment DIFF FINAL Differential Comment Blood Urea Nitrogen 17 Creatinine 1.25 Random Glucose 93 Total Protein 7.8 Albumin 4.2 Calcium Level 9.1 Magnesium Level 2.1 Alkaline Phosphatase 96 Aspartate Amino Transf (AST/SGOT) 21 Alanine Aminotransferase (ALT/SGPT) 21 Total Bilirubin 0.6 Sodium Level 139 Potassium Level 3.8 Chloride Level 102 Carbon Dioxide Level 30.3 Anion Gap 7 Estimat Glomerular Filtration Rate 58 B-Type Natriuretic Peptide 235 Result Diagram: 05/02/17174405/02/171744 Caprin VTE Risk Assessment Caprin VTE Risk Assessment: No/Low Risk (score <= 1) Caprini Risk Assessment Model Point Value = 1 Point Value = 2 Point Value = 3 Point Value = 5 Age 41-60 Minor surgery BMI > 25 kg/m2 Swollen legs Varicose veins or History of unexplained or recurrent spontaneous Oral contraceptives or hormone replacement Sepsis (< 1 month) Serious lung disease, including pneumonia (< 1 month) Abnormal pulmonary function Acute myocardial infarction Congestive heart failure (< 1 month) History of inflammatory bowel disease Medical patient at bed rest Age 61-74 Arthroscopic surgery Major open surgery (> 45 min) Laparoscopic surgery (> 45 min) Malignancy Confined to bed (> 72 hours) Immobilizing plaster cast Central venous access Age >= 75 History of VTE Family history of VTE Factor V Leiden Prothrombin [id number] Lupus anticoagulant Anticardiolipin antibodies Elevated serum homocysteine Heparin-induced thrombocytopenia Other congenital or acquired thrombophilia Stroke (< 1 month) Elective arthroplasty Hip, pelvis, or leg fracture Acute spinal cord injury (< 1 month) Prophylaxis Regimen Total Risk Factor Score Risk Level Prophylaxis Regimen 0-1 Low Early ambulation 2 Moderate Order ONE of the following: *Sequential Compression Device (SCD) *Heparin 5000 units SQ BID 3-4 Higher Order ONE of the following medications: *Heparin 5000 units SQ TID *Enoxaparin/Lovenox 40 mg SQ daily (WT < 150 kg, CrCl > 30 mL/min) *Enoxaparin/Lovenox 30 mg SQ daily (WT < 150 kg, CrCl > 10-29 mL/min) *Enoxaparin/Lovenox 30 mg SQ BID (WT < 150 kg, CrCl > 30 mL/min) AND/OR *Sequential Compression Device (SCD) 5 or more Highest Order ONE of the following medications: *Heparin 5000 units SQ TID (Preferred with Epidurals) *Enoxaparin/Lovenox 40 mg SQ daily (WT < 150 kg, CrCl > 30 mL/min) *Enoxaparin/Lovenox 30 mg SQ daily (WT < 150 kg, CrCl > 10-29 mL/min) *Enoxaparin/Lovenox 30 mg SQ BID (WT < 150 kg, CrCl > 30 mL/min) AND *Sequential Compression Device (SCD) Assessment and Plan Problem List: (1) COPD (chronic obstructive pulmonary disease) ICD Code: J44.9 - Chronic obstructive pulmonary disease Status: Acute (2) CHF (congestive heart failure) ICD Code: I50.9 - Heart failure, unspecified Status: Acute (3) HTN (hypertension), benign ICD Code: I10 - Benign hypertension Status: Acute (4) A-fib ICD Code: I48.91 - Unspecified atrial fibrillation Assessment and Plan A/P: 1. COPD: Chronic Respiratory Failure w/ Acute Exacerbation. Moderate-Severe. S/p Solu-Medrol/DuoNeb w/ some improvement, however significant dyspnea w/ exertion, +persistent wheezing. Monitor O2. Continue Solu-Medrol, DuoNeb, start Symbicort, Mucinex. CXR w/ no acute findings, images reviewed by me. 2. CHF: Chronic. Systolic. Echo 03/23/15 w/ EF 20-25%, BNP 235, CXR w/ no acute findings. On high-dose diuretics at home, resume Lasix, monitor I/O closely. 3. HTN: Resume home medications, monitor BP 4. A-fib: Chronic. Resume home Digoxin. 5. DVT Prophylaxis: Lovenox 6. Social work for d/c planning as needed. 7. Previous records/labs reviewed, case discussed at length w/ ER physician. Problem Qualifiers (1) CHF (congestive heart failure): Qualified Codes: I50.9 - Heart failure, unspecified Ayde Worthy MD May 02, 2017 19:14
[2017-05-02] MEDS ORDERED: ONDANSETRON HCL 4 MG/2 ML VIAL IVP PRN (19:15)
[2017-05-02] MEDS ORDERED: ACETAMINOPHEN/HYDROcodone 325 MG/5 MG TAB PO PRN (19:15)
[2017-05-02] MEDS ORDERED: SENNOSIDES 8.6 MG TAB PO PRN (19:15)
[2017-05-02] MEDS ORDERED: ACETAMINOPHEN 325 MG TAB PO PRN (19:15)
[2017-05-02] MEDS ORDERED: MAGNESIUM HYDROXIDE SUSP 30 ML CUP PO PRN (19:15)
[2017-05-02] MEDS ORDERED: BISACODYL 10 MG SUPP RECTAL PRN (19:15)
[2017-05-02 19:25] VITALS: O2SAT 94
[2017-05-02] MEDS: RESP: ALBUTEROL 2.5 MG/IPRATROPIUM 0.5 MG NEB (SCH) NEB (19:25)
[2017-05-02] MEDS: ATORVASTATIN 80 MG TAB PO SCH (21:00)
[2017-05-02] MEDS: CARVEDILOL 6.25 MG TAB PO SCH (21:00)
[2017-05-02] MEDS ORDERED: FUROSEMIDE 40 MG TAB PO SCH (21:00)
[2017-05-02 21:11] VITALS: BP 92/54; PULSE 51; RESP 18; TEMP 98.2; O2SAT 94
[2017-05-02] MEDS: DOCUSATE SODIUM 50 MG/SENNA 8.6 MG TAB PO SCH (21:21)
[2017-05-02] MEDS: ENOXAPARIN SODIUM 40 MG/0.4 ML SYRINGE SQ SCH (21:22)
[2017-05-02] MEDS: BUDESONIDE-FORMOTEROL 160/4.5 MCG INHALER INH SCH (22:15)
[2017-05-02] MEDS: guaiFENesin E.R. 600 MG TAB PO SCH (22:16)
[2017-05-02] MEDS: SODIUM CHLORIDE 0.9% FLUSH 10 ML FLUSH IV FLUSH SCH (22:17)
[2017-05-02] MEDS: RESP: ALBUTEROL 2.5 MG/IPRATROPIUM 0.5 MG NEB (PRN) NEB ×2 (22:47→22:49)
[2017-05-02] MEDS: methylPREDNISolone SOD SUCC 40 MG/1 ML VIAL IV PUSH SCH (23:51)
[2017-05-03] VITALS (13 sets, daily range): BP systolic 100–134; BP diastolic 56–73; PULSE 80–99; RESP 18–21; TEMP 96.6–98.2; O2SAT 91–97
[2017-05-03] MEDS: RESP: ALBUTEROL 2.5 MG/IPRATROPIUM 0.5 MG NEB (PRN) NEB (03:36)
[2017-05-03] MEDS: methylPREDNISolone SOD SUCC 40 MG/1 ML VIAL IV PUSH SCH ×3 (05:28→17:23)
[2017-05-03] MEDS: RESP: ALBUTEROL 2.5 MG/IPRATROPIUM 0.5 MG NEB (SCH) NEB ×4 (07:50→19:31)
[2017-05-03] MEDS: BUDESONIDE-FORMOTEROL 160/4.5 MCG INHALER INH SCH ×2 (09:04→21:29)
[2017-05-03] MEDS: guaiFENesin E.R. 600 MG TAB PO SCH ×2 (09:05→21:33)
[2017-05-03] MEDS: METHOCARBAMOL 500 MG TAB PO SCH ×3 (09:05→17:23)
[2017-05-03] MEDS: DIGOXIN 0.125 MG TAB PO SCH (09:05)
[2017-05-03] MEDS: GABAPENTIN 300 MG CAP PO SCH ×3 (09:06→17:23)
[2017-05-03] MEDS: FUROSEMIDE 80 MG TAB PO SCH (09:06)
[2017-05-03] MEDS: SPIRONOLACTONE 25 MG TAB PO SCH (09:06)
[2017-05-03] MEDS: CLOPIDOGREL 75 MG TAB PO SCH (09:06)
[2017-05-03] MEDS: CARVEDILOL 6.25 MG TAB PO SCH ×2 (09:06→21:33)
[2017-05-03] MEDS: SODIUM CHLORIDE 0.9% FLUSH 10 ML FLUSH IV FLUSH SCH ×2 (09:07→21:34)
[2017-05-03 09:09] LABS: AUTOMATED NEUTROPHIL # 10.5 TH/MM3 (1.8-7.7); BASOPHIL % 0.2 % (0.0-2.0); HEMATOCRIT 45.3 % (39.0-51.0); HEMOGLOBIN 15.6 GM/DL (13.0-17.0); LYMPH % 4.9 % (9.0-44.0); LYMPHOCYTE # 0.6 TH/MM3 (1.0-4.8); MEAN CELL VOLUME 95.6 FL (80.0-100.0); MEAN CORPUSCULAR HGB CONC 34.5 % (32.0-36.0); MEAN PLATELET VOLUME 11.3 FL (7.0-11.0); MONO % 1.8 % (0.0-8.0); MONOCYTE # 0.2 TH/MM3 (0-0.9); NEUT % 93.1 % (16.0-70.0); PLATELET COUNT 186 TH/MM3 (150-450); RED BLOOD COUNT 4.73 MIL/MM3 (4.50-5.90); RED CELL DISTRIBUTION WIDTH 13.3 % (11.6-17.2); WHITE BLOOD COUNT 11.3 TH/MM3 (4.0-11.0)
[2017-05-03] MEDS: DOCUSATE SODIUM 50 MG/SENNA 8.6 MG TAB PO SCH ×2 (09:09→21:00)
[2017-05-03 09:42] LABS: ALBUMIN 3.5 GM/DL (3.4-5.0); ALKALINE PHOSPHATASE 85 U/L (45-117); ALT (GPT) 16 U/L (12-78); AST (GOT) 15 U/L (15-37); BICARBONATE 24.7 MEQ/L (21.0-32.0); BLOOD UREA NITROGEN 20 MG/DL (7-18); CALCIUM 8.3 MG/DL (8.5-10.1); CHLORIDE 100 MEQ/L (98-107); CREATININE 1.36 MG/DL (0.60-1.30); GLOMERULAR FILTRATION RATE 53 ML/MIN (>89); GLUCOSE,RANDOM 165 MG/DL (74-106); SODIUM (NA) 135 MEQ/L (136-145); TOTAL BILIRUBIN ADULT 0.4 MG/DL (0.2-1.0)
[2017-05-03 10:42] LABS: BANDS 10 % (0-6); LYMPHOCYTES 7 % (9-44); MONOCYTES 2 % (0-8); NEUTROPHIL # MANUAL DIFF 10.3 TH/MM3 (1.8-7.7); POLYS (SEG NEUTROPHILS) 81 % (16-70)
--- NOTE | 2017-05-03 10:45 | HHI.PR ---
Subjective Remarks Some improvement since last night. Patient still complains of significant shortness of breath. He is not back to baseline. He is donating oxygen to be comfortable. Physical exam shows a component of CHF exacerbation is also present. Objective Vital Signs Date Time Temp Pulse Resp B/P (MAP) Pulse Ox O2 Delivery O2 Flow Rate FiO2 05/03/17 07:52 96 Nasal Cannula 3.00 05/03/17 07:25 98.2 99 20 134/68 (90) 97 05/03/17 04:20 98.1 88 18 108/58 (75) 91 05/03/17 00:54 98.1 84 18 100/58 (72) 94 05/02/17 23:02 05/02/17 21:11 98.2 51 18 92/54 (67) 94 05/02/17 19:25 94 Nasal Cannula 2.50 05/02/17 19:13 92 20 92 05/02/17 17:38 24 95 Nasal Cannula 2.00 05/02/17 17:38 95 05/02/17 17:30 98 24 95 Nasal Cannula 2.00 05/02/17 17:04 99.1 101 21 120/73 (89) 93 I/O 05/02/17 05/02/17 05/02/17 05/03/17 05/03/17 05/03/17 07:00 15:00 23:00 07:00 15:00 23:00 Output Total 475 ml Balance -475 ml Output Urine Total 475 ml Result Diagram: 05/03/17 0825 05/03/17 0825 Objective Remarks GENERAL: NAD, A&Ox3 HEAD: Normocephalic. NECK: Supple, trachea midline. No lymphadenopathy. EYES: No scleral icterus. No injection or drainage. CARDIOVASCULAR: Regular rate and rhythm without murmurs, gallops, or rubs. RESPIRATORY: Breath sounds equal bilaterally. No accessory muscle use. Crackles at bases bilaterally GASTROINTESTINAL: Abdomen soft, non-tender, nondistended. MUSCULOSKELETAL: No cyanosis, or edema. SKIN: Warm and dry. NEURO: No focal neurological deficitis. A/P Problem List: (1) History of CHF (congestive heart failure) ICD Code: Z86.79 - Personal history of other diseases of the circulatory system Status: Acute (2) COPD (chronic obstructive pulmonary disease) ICD Code: J44.9 - Chronic obstructive pulmonary disease Status: Acute (3) Acute on chronic systolic CHF (congestive heart failure) ICD Code: I50.23 - Acute on chronic systolic congestive heart failure Status: Acute (4) COPD exacerbation ICD Code: J44.1 - Chronic obstructive pulmonary disease with (acute) exacerbation Status: Acute Assessment and Plan 66 old male admitted secondary to COPD exacerbation and CHF exacerbation COPD exacerbation Continue systemic steroids Into the breathing treatments as needed Oxygen supplementation Continue Symbicort CHF exacerbation Pulmonary edema Acute on chronic systolic CHF Increased baseline Lasix for now Follow clinically for improvement in pulmonary edema Follow renal function Hypertension Continue baseline treatment Follow blood pressures Atrial fibrillation Continue digoxin Continue home treatments Follow on telemetry Pacemaker Low pacemaker battery Pacemaker interrogation in February showed low battery. Patient recommended to get replacement within 3 months, at last interrogation The patient has been unable to arrange placement as an outpatient with [employer] Repeat pacemaker interrogation Consult cardiology (patient reports Dr. Mata placed the current pacemaker) DVT prophylaxis Jakob Garrett MD May 03, 2017 10:45
[2017-05-03] MEDS: ASPIRIN EC 81 MG TABEC PO SCH (10:53)
[2017-05-03] MEDS: MENTHOL LOZENGE BUCCAL PRN (11:38)
[2017-05-03] MEDS ORDERED: FUROSEMIDE 40 MG/4 ML VIAL IV PUSH SCH (12:00)
--- NOTE | 2017-05-03 13:42 | MB ---
cc: DAO LUBIN DO DATE OF CONSULTATION: 05/03/2017. IMPRESSIONS: 1. Shortness of breath, multifactorial. Upper respiratory infection with acute bronchitis. The patient also has dilated cardiomyopathy, most recent ejection fraction reported in the 25% range. 2. Dilated cardiomyopathy [place] [employer] Functional Class II, etiology atherosclerotic heart disease, history of massive myocardial infarction in the past culminating in cardiac catheterization and four vessel coronary bypass grafting surgery. 3. Complex ventricular arrhythmias. He has a Medtronic device. The chest x-ray demonstrates an epicardial LV pace sense lead. I believe the device may be set up as a biventricular [employer] device. He has had no recent shocks but the device is at elective replacement indicator since February. 4. History of atrial fibrillation. 5. Two previous admissions in the past three years for congestive heart failure. 6. COPD, remote smoking history. 7. Hypertension. 8. Dyslipidemia. 9. ALLERGY TO SEAFOOD including hives and anaphylaxis, rule out iodine allergy. 10. Mild renal insufficiency. RECOMMENDATIONS: 1. The patient will be admitted to the hospital. 2. Would recommend gentle diuresis. 3. His device has been interrogated. 4. His optimal measurements have breached the upper limits of normal suggesting early congestive heart failure. Would continue the patient's same medications. The patient will need to have his device replaced. 5. Old records including coronary artery bypass grafting operative report. CLINICAL DATA: Mr. Marquez is a 66-year-old male who is admitted to the hospital with shortness of breath. He apparently has [employer]. His insurance may be changing. He has not had any recent cardiology followup. Dr. Mata had replaced this gentleman's defibrillator battery last time it was done. He has been having getting transtelephonic monitoring and JADIEL in early February. He has a history of atherosclerotic heart disease as noted above. He had a myocardial infarction, he tells me in 1995, and had four-vessel coronary bypass grafting surgery. He has not had recent functional testing. Most recent echo in 2014 showed ejection fraction reportedly in the 20-25% range. He has had several admissions for congestive heart failure. He has had no angina. He has had no ICD shocks. The patient over the past few days has developed rhinorrhea associated with minimally productive cough. He has had no fever or chills but has noticed some lower extremity edema. PAST SURGICAL HISTORY: Past surgical history includes: 1. Coronary bypass grafting surgery. 2. ICD implant with epicardial lead. 3. He has had tonsillectomy. RISK FACTORS: Risk factors are as noted above. MEDICATIONS: His medications on admission: 1. Aspirin. 2. Plavix. 3. Digoxin. 4. Furosemide. 5. Spironolactone. 6. Carvedilol. 7. Atorvastatin. REVIEW OF SYSTEMS: He has had no recent transient neurological deficits or amaurosis fugax. He has had no fever or chills. He has had mild lower extremity edema. PHYSICAL EXAMINATION: GENERAL: The physical exam at this time demonstrates an alert oriented male in no apparent distress. The patient is currently sitting up in bed breathing room air. He is not dyspneic nor tachypneic. He is in no apparent distress. He is eating lunch. VITAL SIGNS: Last blood pressure 100/60, afebrile, heart rate 80. HEAD, EYES, EARS, NOSE, THROAT: Anicteric sclerae. NECK: Jugular venous pressures are not elevated. There are no carotid bruits. LUNGS: Auscultation of lungs demonstrates him to be clear. CARDIAC: His cardiac exam is regular rate rhythm with occasional extrasystoles. No S3 currently noted. There is a 1/6 systolic ejection murmur. No diastolic murmurs noted. ABDOMEN: The abdomen is soft and nontender. EXTREMITIES: Currently free of cyanosis, clubbing, edema. RADIOLOGICAL STUDIES: Chest x-ray Demonstrates clear lung calvillo. No effusions. There is a left-sided ICD with slightly retracted atrial lead and RV high-voltage pace sense lead AND there appears to be an epicardial lead left ventricle. The patient has no memory of when or how this got there, but it may have been performed at the time of his original coronary bypass grafting. PERTINENT LABORATORY DATA: He has had a white cell count of 7200, hematocrit 49 and platelet count 198. Chemistries: 139, 3.8, 102, 30 with a BUN of 17, creatinine 1.3. GFR of 58. BNP minimally elevated at 235. EKGS: A 12-lead electrocardiogram has not been performed. DISCUSSION: This is a 66-year-old male with an ischemic dilated cardiomyopathy and ICD at elective replacement indicator admitted to the hospital with mild decompensated congestive heart failure in the face of a recent upper respiratory infection. Recommendations as noted above. DO KEIRY Pollock/ALMAS /12:54 PM /1:10 PM
[2017-05-03] MEDS: ATORVASTATIN 80 MG TAB PO SCH (21:33)
[2017-05-03] MEDS: ENOXAPARIN SODIUM 40 MG/0.4 ML SYRINGE SQ SCH (21:33)
[2017-05-04] VITALS (11 sets, daily range): BP systolic 106–121; BP diastolic 58–70; PULSE 66–93; RESP 15–21; TEMP 97.3–98.5; O2SAT 90–96
[2017-05-04] MEDS: RESP: ALBUTEROL 2.5 MG/IPRATROPIUM 0.5 MG NEB (PRN) NEB (00:08)
[2017-05-04] MEDS: guaiFENesin SOLUTION 200 MG/10 ML CUP PO PRN ×2 (00:19→06:05)
[2017-05-04] MEDS: methylPREDNISolone SOD SUCC 40 MG/1 ML VIAL IV PUSH SCH ×5 (00:20→23:50)
[2017-05-04] MEDS: MENTHOL LOZENGE BUCCAL PRN (03:58)
[2017-05-04] MEDS: RESP: ALBUTEROL 2.5 MG/IPRATROPIUM 0.5 MG NEB (SCH) NEB ×4 (07:37→18:58)
[2017-05-04] MEDS: DOCUSATE SODIUM 50 MG/SENNA 8.6 MG TAB PO SCH ×2 (09:00→21:00)
[2017-05-04] MEDS: SODIUM CHLORIDE 0.9% FLUSH 10 ML FLUSH IV FLUSH SCH ×2 (09:00→21:36)
[2017-05-04] MEDS: FUROSEMIDE 80 MG TAB PO SCH (09:00)
[2017-05-04 09:05] LABS: AUTOMATED NEUTROPHIL # 17.6 TH/MM3 (1.8-7.7); BASOPHIL % 0.1 % (0.0-2.0); HEMATOCRIT 48.3 % (39.0-51.0); HEMOGLOBIN 16.6 GM/DL (13.0-17.0); LYMPH % 3.2 % (9.0-44.0); LYMPHOCYTE # 0.6 TH/MM3 (1.0-4.8); MEAN CELL VOLUME 96.8 FL (80.0-100.0); MEAN CORPUSCULAR HEMOGLOBIN 33.2 PG (27.0-34.0); MEAN CORPUSCULAR HGB CONC 34.3 % (32.0-36.0); MEAN PLATELET VOLUME 11.1 FL (7.0-11.0); MONO % 2.9 % (0.0-8.0); MONOCYTE # 0.5 TH/MM3 (0-0.9); NEUT % 93.8 % (16.0-70.0); PLATELET COUNT 194 TH/MM3 (150-450); RED BLOOD COUNT 4.98 MIL/MM3 (4.50-5.90); RED CELL DISTRIBUTION WIDTH 13.3 % (11.6-17.2); WHITE BLOOD COUNT 18.8 TH/MM3 (4.0-11.0)
[2017-05-04 09:28] LABS: ALBUMIN 3.6 GM/DL (3.4-5.0); AST (GOT) 19 U/L (15-37); BICARBONATE 31.4 MEQ/L (21.0-32.0); BLOOD UREA NITROGEN 25 MG/DL (7-18); CALCIUM 9.1 MG/DL (8.5-10.1); CHLORIDE 97 MEQ/L (98-107); CREATININE 1.29 MG/DL (0.60-1.30); GLOMERULAR FILTRATION RATE 56 ML/MIN (>89); GLUCOSE,RANDOM 129 MG/DL (74-106); SODIUM (NA) 135 MEQ/L (136-145)
[2017-05-04 09:29] LABS: ALT (GPT) 18 U/L (12-78)
[2017-05-04 09:32] LABS: ALKALINE PHOSPHATASE 88 U/L (45-117); TOTAL BILIRUBIN ADULT 0.4 MG/DL (0.2-1.0); TOTAL PROTEIN 7.4 GM/DL (6.4-8.2)
[2017-05-04] MEDS: BUDESONIDE-FORMOTEROL 160/4.5 MCG INHALER INH SCH ×2 (09:35→21:35)
[2017-05-04] MEDS: GABAPENTIN 300 MG CAP PO SCH ×3 (09:35→17:15)
[2017-05-04] MEDS: CLOPIDOGREL 75 MG TAB PO SCH (09:36)
[2017-05-04] MEDS: DIGOXIN 0.125 MG TAB PO SCH (09:36)
[2017-05-04] MEDS: METHOCARBAMOL 500 MG TAB PO SCH ×3 (09:36→17:15)
[2017-05-04] MEDS: ASPIRIN EC 81 MG TABEC PO SCH (09:36)
[2017-05-04] MEDS: SPIRONOLACTONE 25 MG TAB PO SCH (09:36)
[2017-05-04] MEDS: CARVEDILOL 6.25 MG TAB PO SCH ×2 (09:36→21:38)
[2017-05-04] MEDS: guaiFENesin E.R. 600 MG TAB PO SCH ×2 (09:36→21:39)
--- NOTE | 2017-05-04 10:42 | HHI.PR ---
Subjective Remarks Pt states SOB is improving but still get SOB w ambulation. No nausea or vomiting. At times feels a little flutter and wonders why, but denies any chest pains, lightheadedness or dizziness. States he did speak w Cards and is hopeful that the battery of his pacemaker will be changed during this hospitalization. Objective Vitals Vital Signs Date Time Temp Pulse Resp B/P (MAP) Pulse Ox O2 Delivery O2 Flow Rate FiO2 05/04/17 08:00 98.5 66 21 112/64 (80) 90 05/04/17 07:37 92 Nasal Cannula 4.00 05/04/17 04:33 97.5 90 18 120/61 (80) 96 05/04/17 04:12 89 05/04/17 00:42 97.3 85 18 106/70 (82) 94 05/04/17 00:11 93 05/03/17 22:59 92 Nasal Cannula 4.00 05/03/17 22:59 86 21 126/65 (85) 92 05/03/17 20:18 80 05/03/17 20:00 98.2 95 18 114/56 (75) 92 05/03/17 19:31 92 Nasal Cannula 3.00 05/03/17 18:00 96.6 81 18 130/73 (92) 93 05/03/17 16:52 98.1 94 18 124/63 (83) 93 05/03/17 15:00 84 05/03/17 11:33 98.1 95 18 124/71 (88) 92 05/03/17 10:41 86 I/O 05/03/17 05/03/17 05/03/17 05/04/17 05/04/17 05/04/17 07:00 15:00 23:00 07:00 15:00 23:00 Intake Total 240 ml Output Total 475 ml 400 ml Balance -475 ml -160 ml Intake Oral 240 ml Output Urine Total 475 ml 400 ml # Voids 2 Result Diagram: 05/04/17 0755 05/04/17 0725 Imaging Last Impressions Chest X-Ray 05/02/17 1414 Signed Impressions: Service Date/Time: Tuesday, May 02, 2017 17:41 - CONCLUSION: No acute cardiopulmonary disease. Dominique Velasquez MD Objective Remarks GENERAL: awake and alert. sitting on side of bed. NECK: Supple, trachea midline. No lymphadenopathy. EYES: No scleral icterus. No injection or drainage. CARDIOVASCULAR: Regular rate and rhythm without murmurs RESPIRATORY: decreased breath sounds. No accessory muscle use. no crackles this morning. GASTROINTESTINAL: Abdomen soft, non-tender, nondistended. MUSCULOSKELETAL: No edema. SKIN: dry skin NEURO: No focal neurological deficitis. A/P Problem List: (1) COPD (chronic obstructive pulmonary disease) ICD Code: J44.9 - Chronic obstructive pulmonary disease Status: Acute (2) CHF (congestive heart failure) ICD Code: I50.9 - Heart failure, unspecified Status: Acute (3) HTN (hypertension), benign ICD Code: I10 - Benign hypertension Status: Acute (4) A-fib ICD Code: I48.91 - Unspecified atrial fibrillation Assessment and Plan 66 old male admitted secondary to COPD exacerbation and CHF exacerbation COPD exacerbation Continue systemic steroids Into the breathing treatments as needed Oxygen supplementation Continue Symbicort Tells me that he only has had 2 exacerbations in 3 years. Doesn't have a processing assistant. Will add 5 day course of azithromycin to cover to atypicals. CHF exacerbation Pulmonary edema Acute on chronic systolic CHF Increased baseline Lasix for now, on 40mg IV q24hrs Follow clinically for improvement in pulmonary edema Follow renal function add fluid restriction to 1500ml/day Hypertension Continue baseline treatment Follow blood pressures Atrial fibrillation Continue digoxin Continue home treatments Follow on telemetry Pacemaker Low pacemaker battery Pacemaker interrogation in February showed low battery. Patient recommended to get replacement within 3 months, at last interrogation The patient has been unable to arrange placement as an outpatient with [employer] Repeat pacemaker interrogation Cardiology evaluated the patient but official report not yet available. awaiting their final recs (patient reports Dr. Mata placed the current pacemaker) DVT proph: lovenox Discharge Planning pt still SOB especially w ambulation. continue to monitor closely. wean oxygen as tolerated. wean steroids. Awaiting final recs from cardiology Problem Qualifiers (1) CHF (congestive heart failure): Qualified Codes: I50.9 - Heart failure, unspecified Anabelle Negron MD May 04, 2017 10:42
[2017-05-04] MEDS ORDERED: AZITHROMYCIN 250 MG TAB PO ONE (10:45)
[2017-05-04] MEDS: ENOXAPARIN SODIUM 40 MG/0.4 ML SYRINGE SQ SCH ×2 (21:00→21:40)
[2017-05-04] MEDS: ATORVASTATIN 80 MG TAB PO SCH (21:39)
[2017-05-04] MEDS: FUROSEMIDE 40 MG TAB PO SCH (21:39)
[2017-05-04] MEDS: SODIUM CHLORIDE 0.9% FLUSH 10 ML FLUSH IV FLUSH PRN (23:51)
[2017-05-05] VITALS (9 sets, daily range): BP systolic 98–121; BP diastolic 51–72; PULSE 69–96; RESP 16–19; TEMP 96.8–98.7; O2SAT 93–95
[2017-05-05] MEDS: ACETAMINOPHEN/HYDROcodone 325 MG/10 MG TAB PO PRN ×2 (01:35→22:19)
[2017-05-05] MEDS: methylPREDNISolone SOD SUCC 40 MG/1 ML VIAL IV PUSH SCH ×3 (05:36→17:52)
[2017-05-05] MEDS: SODIUM CHLORIDE 0.9% FLUSH 10 ML FLUSH IV FLUSH PRN (05:36)
[2017-05-05] MEDS: RESP: ALBUTEROL 2.5 MG/IPRATROPIUM 0.5 MG NEB (SCH) NEB ×4 (07:25→20:24)
[2017-05-05 07:48] LABS: BICARBONATE 30.7 MEQ/L (21.0-32.0); CALCIUM 8.8 MG/DL (8.5-10.1); CREATININE 1.3 MG/DL (0.60-1.30)
[2017-05-05] MEDS: CARVEDILOL 6.25 MG TAB PO SCH ×2 (08:22→22:08)
[2017-05-05] MEDS: GABAPENTIN 300 MG CAP PO SCH ×3 (08:23→17:53)
[2017-05-05] MEDS: METHOCARBAMOL 500 MG TAB PO SCH ×3 (08:24→17:53)
[2017-05-05] MEDS: DIGOXIN 0.125 MG TAB PO SCH (08:24)
[2017-05-05] MEDS: guaiFENesin E.R. 600 MG TAB PO SCH ×2 (08:24→19:43)
[2017-05-05] MEDS: AZITHROMYCIN 250 MG TAB PO SCH (08:24)
[2017-05-05] MEDS: DOCUSATE SODIUM 50 MG/SENNA 8.6 MG TAB PO SCH ×2 (08:25→19:43)
[2017-05-05] MEDS: CLOPIDOGREL 75 MG TAB PO SCH (08:25)
[2017-05-05] MEDS: FUROSEMIDE 80 MG TAB PO SCH (08:25)
[2017-05-05] MEDS: ASPIRIN EC 81 MG TABEC PO SCH (08:25)
[2017-05-05] MEDS: SPIRONOLACTONE 25 MG TAB PO SCH (08:26)
[2017-05-05] MEDS: SODIUM CHLORIDE 0.9% FLUSH 10 ML FLUSH IV FLUSH SCH ×2 (08:27→19:42)
[2017-05-05] MEDS: BUDESONIDE-FORMOTEROL 160/4.5 MCG INHALER INH SCH ×2 (08:28→19:41)
[2017-05-05 15:35] LABS: INTERNATIONAL NORMALIZED RATIO 1.1 RATIO; PROTHROMBIN TIME - PATIENT 10.7 SEC (9.8-11.6)
--- NOTE | 2017-05-05 17:00 | HHI.PR ---
Subjective Remarks Patient looks fragile still on O2 nasal cannula feeling short of breath on exertion He is concerned about changing his pacer battery Afebrile Objective Vitals Vital Signs Date Time Temp Pulse Resp B/P (MAP) Pulse Ox O2 Delivery O2 Flow Rate FiO2 05/05/17 16:00 97.7 85 17 98/51 (67) 95 05/05/17 12:00 98.7 88 18 110/72 (85) 93 05/05/17 08:10 69 05/05/17 08:10 95 Nasal Cannula 4.00 05/05/17 08:00 96.8 87 19 121/66 (84) 95 05/05/17 07:30 95 Nasal Cannula 3.00 05/05/17 04:00 97.4 76 16 112/60 (77) 95 05/05/17 00:00 96.9 75 16 112/67 (82) 95 05/05/17 00:00 79 05/04/17 21:30 95 Nasal Cannula 4.00 05/04/17 20:04 85 05/04/17 20:00 97.6 76 15 112/58 (76) 91 I/O 05/04/17 05/04/17 05/04/17 05/05/17 05/05/17 05/05/17 07:00 15:00 23:00 07:00 15:00 23:00 Intake Total 420 ml 480 ml Balance 420 ml 480 ml Intake Oral 420 ml 480 ml # Voids 2 5 2 # Bowel Movements 0 Result Diagram: 05/04/17 0755 05/05/17 0639 Objective Remarks GENERAL: This is a well-nourished, well-developed patient, in no apparent distress. SKIN: No rashes, warm and dry HEAD: Atraumatic. Normocephalic. EYES: Pupils equal round and reactive. Extraocular motions intact. No scleral icterus. ENT: Nose without bleeding, or drainage, Airway patent. NECK: Trachea midline. Supple CARDIOVASCULAR: Regular rate and rhythm without murmurs, gallops, or rubs. RESPIRATORY: Positive wheezes bilaterally GASTROINTESTINAL: Abdomen soft, non-tender, nondistended. Positive bowel sounds MUSCULOSKELETAL: Extremities without clubbing, cyanosis, or edema. Pedal pulses appreciated NEUROLOGICAL: Awake and alert. Moves all extremity. Normal speech.no focal neurological deficit A/P Problem List: (1) COPD (chronic obstructive pulmonary disease) ICD Code: J44.9 - Chronic obstructive pulmonary disease Status: Acute (2) CHF (congestive heart failure) ICD Code: I50.9 - Heart failure, unspecified Status: Acute (3) HTN (hypertension), benign ICD Code: I10 - Benign hypertension Status: Acute (4) A-fib ICD Code: I48.91 - Unspecified atrial fibrillation Assessment and Plan 05/05/17: Still on O2 nasal cannula 3 L, WBC increased to 18.8 mostly due to steroid, continue Solu-Medrol, DuoNeb, Zithromax, awaiting cardiology for pacemaker placement Patient on Lasix 80 mg by mouth daily, continue monitoring clinical course A/P: 66 old male admitted secondary to COPD exacerbation and CHF exacerbation COPD exacerbation Continue systemic steroids Into the breathing treatments as needed Oxygen supplementation Continue Symbicort Will add 5 day course of azithromycin to cover to atypicals. CHF exacerbation Pulmonary edema Acute on chronic systolic CHF Increased baseline Lasix for now, on 40mg IV q24hrs Follow clinically for improvement in pulmonary edema Follow renal function add fluid restriction to 1500ml/day Hypertension Continue baseline treatment Follow blood pressures Atrial fibrillation Continue digoxin Continue home treatments Follow on telemetry Pacemaker Low pacemaker battery Pacemaker interrogation in February showed low battery. Patient recommended to get replacement within 3 months, at last interrogation The patient has been unable to arrange placement as an outpatient with [employer] Repeat pacemaker interrogation Cardiology evaluated the patient but official report not yet available. awaiting their final recs (patient reports Dr. Mata placed the current pacemaker) DVT proph: lovenox Problem Qualifiers (1) CHF (congestive heart failure): Qualified Codes: I50.9 - Heart failure, unspecified Kishore Castillo MD May 05, 2017 17:00
[2017-05-05] MEDS: ATORVASTATIN 80 MG TAB PO SCH (19:43)
[2017-05-05] MEDS: FUROSEMIDE 40 MG TAB PO SCH (19:43)
[2017-05-06] VITALS (8 sets, daily range): BP systolic 110–126; BP diastolic 59–79; PULSE 77–103; RESP 16–21; TEMP 96.1–97.6; O2SAT 91–98
[2017-05-06] MEDS: methylPREDNISolone SOD SUCC 40 MG/1 ML VIAL IV PUSH SCH ×4 (00:32→22:16)
[2017-05-06] MEDS: SODIUM CHLORIDE 0.9% FLUSH 10 ML FLUSH IV FLUSH PRN ×2 (00:32→05:18)
[2017-05-06] MEDS: LORazepam 0.5 MG TAB PO PRN ×2 (00:33→22:22)
[2017-05-06] MEDS: MENTHOL LOZENGE BUCCAL PRN (00:33)
[2017-05-06] MEDS: RESP: ALBUTEROL 2.5 MG/IPRATROPIUM 0.5 MG NEB (PRN) NEB (01:56)
[2017-05-06 07:29] LABS: AUTOMATED NEUTROPHIL # 14.3 TH/MM3 (1.8-7.7); BASOPHIL % 0.1 % (0.0-2.0); HEMATOCRIT 49.3 % (39.0-51.0); HEMOGLOBIN 16.5 GM/DL (13.0-17.0); LYMPHOCYTE # 0.8 TH/MM3 (1.0-4.8); MEAN CELL VOLUME 96.5 FL (80.0-100.0); MEAN CORPUSCULAR HEMOGLOBIN 32.4 PG (27.0-34.0); MEAN CORPUSCULAR HGB CONC 33.5 % (32.0-36.0); MONO % 2.7 % (0.0-8.0); MONOCYTE # 0.4 TH/MM3 (0-0.9); NEUT % 92.2 % (16.0-70.0); PLATELET COUNT 164 TH/MM3 (150-450); RED BLOOD COUNT 5.11 MIL/MM3 (4.50-5.90); RED CELL DISTRIBUTION WIDTH 13.1 % (11.6-17.2); WHITE BLOOD COUNT 15.5 TH/MM3 (4.0-11.0)
[2017-05-06 07:40] LABS: BICARBONATE 31.5 MEQ/L (21.0-32.0); CALCIUM 8.8 MG/DL (8.5-10.1); CREATININE 1.34 MG/DL (0.60-1.30)
[2017-05-06] MEDS: RESP: ALBUTEROL 2.5 MG/IPRATROPIUM 0.5 MG NEB (SCH) NEB ×4 (08:35→19:43)
[2017-05-06] MEDS: METHOCARBAMOL 500 MG TAB PO SCH ×3 (08:56→16:22)
[2017-05-06] MEDS: guaiFENesin E.R. 600 MG TAB PO SCH ×2 (08:56→22:17)
[2017-05-06] MEDS: GABAPENTIN 300 MG CAP PO SCH ×3 (08:57→16:22)
[2017-05-06] MEDS: AZITHROMYCIN 250 MG TAB PO SCH (08:57)
[2017-05-06] MEDS: CLOPIDOGREL 75 MG TAB PO SCH (08:58)
[2017-05-06] MEDS: DIGOXIN 0.125 MG TAB PO SCH (08:58)
[2017-05-06] MEDS: DOCUSATE SODIUM 50 MG/SENNA 8.6 MG TAB PO SCH ×2 (08:58→22:18)
[2017-05-06] MEDS: FUROSEMIDE 80 MG TAB PO SCH (08:58)
[2017-05-06] MEDS: CARVEDILOL 6.25 MG TAB PO SCH ×2 (08:58→22:17)
[2017-05-06] MEDS: SPIRONOLACTONE 25 MG TAB PO SCH (08:58)
[2017-05-06] MEDS: ASPIRIN EC 81 MG TABEC PO SCH (08:59)
[2017-05-06] MEDS: SODIUM CHLORIDE 0.9% FLUSH 10 ML FLUSH IV FLUSH SCH ×2 (09:00→22:16)
[2017-05-06] MEDS: LACTULOSE SYRUP 20 GM/30 ML CUP PO PRN (09:02)
[2017-05-06] MEDS: BUDESONIDE-FORMOTEROL 160/4.5 MCG INHALER INH SCH ×2 (10:17→22:16)
--- NOTE | 2017-05-06 13:44 | HHI.PR ---
Subjective Remarks patient complaining of some abdominal cramps, stuffy nose Otherwise no fever Objective Vitals Vital Signs Date Time Temp Pulse Resp B/P (MAP) Pulse Ox O2 Delivery O2 Flow Rate FiO2 05/06/17 12:00 97.0 91 17 117/64 (81) 95 05/06/17 10:45 93 Nasal Cannula 4.00 05/06/17 08:00 97.3 103 17 122/72 (89) 93 05/06/17 04:00 96.7 77 18 110/59 (76) 95 05/06/17 00:00 77 05/06/17 00:00 96.1 80 16 126/63 (84) 95 05/05/17 20:25 95 Nasal Cannula 3.00 05/05/17 20:00 96 05/05/17 20:00 97.4 89 16 118/66 (83) 95 05/05/17 19:30 95 Nasal Cannula 4.00 05/05/17 16:00 97.7 85 17 98/51 (67) 95 I/O 05/05/17 05/05/17 05/05/17 05/06/17 05/06/17 05/06/17 07:00 15:00 23:00 07:00 15:00 23:00 Intake Total 480 ml 720 ml 380 ml Balance 480 ml 720 ml 380 ml Intake Oral 480 ml 720 ml 380 ml # Voids 2 8 2 # Bowel Movements 0 1 Result Diagram: 05/06/1761705/06/1718 Objective Remarks GENERAL: This is a well-nourished, well-developed patient, in no apparent distress. SKIN: No rashes, warm and dry HEAD: Atraumatic. Normocephalic. EYES: Pupils equal round and reactive. Extraocular motions intact. No scleral icterus. ENT: Nose without bleeding, or drainage, Airway patent. NECK: Trachea midline. Supple CARDIOVASCULAR: Regular rate and rhythm without murmurs, gallops, or rubs. RESPIRATORY: Positive wheezes bilaterally GASTROINTESTINAL: Abdomen soft, non-tender, nondistended. Positive bowel sounds MUSCULOSKELETAL: Extremities without clubbing, cyanosis, or edema. Pedal pulses appreciated NEUROLOGICAL: Awake and alert. Moves all extremity. Normal speech.no focal neurological deficit A/P Problem List: (1) COPD (chronic obstructive pulmonary disease) ICD Code: J44.9 - Chronic obstructive pulmonary disease Status: Acute (2) CHF (congestive heart failure) ICD Code: I50.9 - Heart failure, unspecified Status: Acute (3) HTN (hypertension), benign ICD Code: I10 - Benign hypertension Status: Acute (4) A-fib ICD Code: I48.91 - Unspecified atrial fibrillation Assessment and Plan 05/05/17: Still on O2 nasal cannula 3 L, WBC increased to 18.8 mostly due to steroid, continue Solu-Medrol, DuoNeb, Zithromax, awaiting cardiology for pacemaker placement Patient on Lasix 80 mg by mouth daily, continue monitoring clinical course 05/06/17: patienthe asked to liberate his fluid restriction slightly,decrease Solu -Medrol, check home O2 walking test A/P: 66 old male admitted secondary to COPD exacerbation and CHF exacerbation COPD exacerbation Continue systemic steroids Into the breathing treatments as needed Oxygen supplementation Continue Symbicort Will add 5 day course of azithromycin to cover to atypicals. CHF exacerbation Pulmonary edema Acute on chronic systolic CHF Increased baseline Lasix for now, on 40mg IV q24hrs Follow clinically for improvement in pulmonary edema Follow renal function add fluid restriction to 1500ml/day Hypertension Continue baseline treatment Follow blood pressures Atrial fibrillation Continue digoxin Continue home treatments Follow on telemetry Pacemaker Low pacemaker battery Pacemaker interrogation in February showed low battery. Patient recommended to get replacement within 3 months, at last interrogation The patient has been unable to arrange placement as an outpatient with [employer] Repeat pacemaker interrogation Cardiology evaluated the patient but official report not yet available. awaiting their final recs (patient reports Dr. Mata placed the current pacemaker) DVT proph: lovenox Problem Qualifiers (1) CHF (congestive heart failure): Qualified Codes: I50.9 - Heart failure, unspecified Kishore Castillo MD May 06, 2017 13:43
[2017-05-06] MEDS: FUROSEMIDE 40 MG TAB PO SCH (22:17)
[2017-05-06] MEDS: ATORVASTATIN 80 MG TAB PO SCH (22:17)
[2017-05-07] VITALS (8 sets, daily range): BP systolic 128–135; BP diastolic 69–82; PULSE 77–90; RESP 18–22; TEMP 96.8–98.8; O2SAT 93–96
[2017-05-07] MEDS: MENTHOL LOZENGE BUCCAL PRN ×2 (07:22→18:59)
[2017-05-07] MEDS: guaiFENesin E.R. 600 MG TAB PO SCH ×2 (08:10→21:00)
[2017-05-07] MEDS: CARVEDILOL 6.25 MG TAB PO SCH ×2 (08:10→20:50)
[2017-05-07] MEDS: CLOPIDOGREL 75 MG TAB PO SCH (08:10)
[2017-05-07] MEDS: METHOCARBAMOL 500 MG TAB PO SCH ×3 (08:10→18:44)
[2017-05-07] MEDS: ASPIRIN EC 81 MG TABEC PO SCH (08:10)
[2017-05-07] MEDS: FUROSEMIDE 80 MG TAB PO SCH (08:10)
[2017-05-07] MEDS: SPIRONOLACTONE 25 MG TAB PO SCH (08:10)
[2017-05-07] MEDS: DOCUSATE SODIUM 50 MG/SENNA 8.6 MG TAB PO SCH ×2 (08:10→20:51)
[2017-05-07] MEDS: DIGOXIN 0.125 MG TAB PO SCH (08:10)
[2017-05-07] MEDS: AZITHROMYCIN 250 MG TAB PO SCH (08:10)
[2017-05-07] MEDS: GABAPENTIN 300 MG CAP PO SCH ×3 (08:10→18:43)
[2017-05-07] MEDS: BUDESONIDE-FORMOTEROL 160/4.5 MCG INHALER INH SCH ×2 (08:10→20:50)
[2017-05-07] MEDS: methylPREDNISolone SOD SUCC 40 MG/1 ML VIAL IV PUSH SCH ×2 (08:11→20:51)
[2017-05-07] MEDS: LACTULOSE SYRUP 20 GM/30 ML CUP PO PRN (08:11)
[2017-05-07] MEDS: SODIUM CHLORIDE 0.9% FLUSH 10 ML FLUSH IV FLUSH SCH ×2 (08:14→20:50)
[2017-05-07 13:33] LABS: BICARBONATE 33.2 MEQ/L (21.0-32.0); CALCIUM 8.4 MG/DL (8.5-10.1); CREATININE 1.22 MG/DL (0.60-1.30)
--- NOTE | 2017-05-07 13:44 | HHI.PR ---
Subjective Remarks patient resting in bed, he reported positive bowel movement will continue DuoNeb and tapering Solu-Medrol Patient had episodes of V. tach Objective Vitals Vital Signs Date Time Temp Pulse Resp B/P (MAP) Pulse Ox O2 Delivery O2 Flow Rate FiO2 05/07/17 12:00 97.0 84 18 129/69 (89) 96 05/07/17 08:53 3.00 05/07/17 08:00 96.8 82 21 128/76 (93) 93 05/07/17 00:19 97.7 89 20 135/79 (97) 95 05/07/17 00:00 77 05/06/17 20:05 86 05/06/17 20:00 96.4 100 21 120/60 (80) 91 05/06/17 20:00 97 05/06/17 16:28 98 Nasal Cannula 3.00 05/06/17 16:00 97.6 96 17 123/79 (94) 94 I/O 05/06/17 05/06/17 05/06/17 05/07/17 05/07/17 05/07/17 07:00 15:00 23:00 07:00 15:00 23:00 Intake Total 380 ml 1191 ml 780 ml Balance 380 ml 1191 ml 780 ml Intake Oral 380 ml 1191 ml 780 ml # Voids 2 6 4 # Bowel Movements 1 0 0 Result Diagram: 05/06/17 0618 05/07/17 1243 Objective Remarks GENERAL: This is a well-nourished, well-developed patient, in no apparent distress. SKIN: No rashes, warm and dry HEAD: Atraumatic. Normocephalic. EYES: Pupils equal round and reactive. Extraocular motions intact. No scleral icterus. ENT: Nose without bleeding, or drainage, Airway patent. NECK: Trachea midline. Supple CARDIOVASCULAR: Regular rate and rhythm without murmurs, gallops, or rubs. RESPIRATORY: Positive wheezes bilaterally GASTROINTESTINAL: Abdomen soft, non-tender, nondistended. Positive bowel sounds MUSCULOSKELETAL: Extremities without clubbing, cyanosis, or edema. Pedal pulses appreciated NEUROLOGICAL: Awake and alert. Moves all extremity. Normal speech.no focal neurological deficit A/P Problem List: (1) COPD (chronic obstructive pulmonary disease) ICD Code: J44.9 - Chronic obstructive pulmonary disease Status: Acute (2) CHF (congestive heart failure) ICD Code: I50.9 - Heart failure, unspecified Status: Acute (3) HTN (hypertension), benign ICD Code: I10 - Benign hypertension Status: Acute (4) A-fib ICD Code: I48.91 - Unspecified atrial fibrillation Assessment and Plan 05/07/17: WBC decreased, patient had runs of V. tachlast night, continue DuoNeb, decreased urine output follow BMP, I discussed with plan to go for pacer replacement A/P: 66 old male admitted secondary to COPD exacerbation and CHF exacerbation COPD exacerbation Continue systemic steroids Into the breathing treatments as needed Oxygen supplementation Continue Symbicort Will add 5 day course of azithromycin to cover to atypicals. CHF exacerbation Pulmonary edema Acute on chronic systolic CHF Increased baseline Lasix for now, on 40mg IV q24hrs Follow clinically for improvement in pulmonary edema Follow renal function add fluid restriction to 1500ml/day Hypertension Continue baseline treatment Follow blood pressures Atrial fibrillation Continue digoxin Continue home treatments Follow on telemetry Pacemaker Low pacemaker battery Pacemaker interrogation in February showed low battery. Patient recommended to get replacement within 3 months, at last interrogation The patient has been unable to arrange placement as an outpatient with [employer] Repeat pacemaker interrogation Cardiology evaluated the patient but official report not yet available. awaiting their final recs (patient reports Dr. Mata placed the current pacemaker) DVT proph: lovenox Problem Qualifiers (1) CHF (congestive heart failure): Qualified Codes: I50.9 - Heart failure, unspecified Kishore Castillo MD May 07, 2017 13:44
[2017-05-07] MEDS: ATORVASTATIN 80 MG TAB PO SCH (20:50)
[2017-05-07] MEDS: FUROSEMIDE 40 MG TAB PO SCH (20:50)
[2017-05-08] VITALS (16 sets, daily range): BP systolic 110–129; BP diastolic 58–83; PULSE 62–79; RESP 16–20; TEMP 97.9–98.9; O2SAT 92–96
[2017-05-08] MEDS: methylPREDNISolone SOD SUCC 40 MG/1 ML VIAL IV PUSH SCH ×2 (10:08→21:18)
[2017-05-08] MEDS: GABAPENTIN 300 MG CAP PO SCH ×3 (10:09→17:39)
[2017-05-08] MEDS: DOCUSATE SODIUM 50 MG/SENNA 8.6 MG TAB PO SCH ×2 (10:09→21:19)
[2017-05-08] MEDS: CARVEDILOL 6.25 MG TAB PO SCH ×2 (10:09→21:19)
[2017-05-08] MEDS: AZITHROMYCIN 250 MG TAB PO SCH (10:09)
[2017-05-08] MEDS: ASPIRIN EC 81 MG TABEC PO SCH (10:09)
[2017-05-08] MEDS: FUROSEMIDE 80 MG TAB PO SCH (10:10)
[2017-05-08] MEDS: CLOPIDOGREL 75 MG TAB PO SCH (10:10)
[2017-05-08] MEDS: DIGOXIN 0.125 MG TAB PO SCH (10:10)
[2017-05-08] MEDS: guaiFENesin E.R. 600 MG TAB PO SCH ×2 (10:10→21:19)
[2017-05-08] MEDS: SPIRONOLACTONE 25 MG TAB PO SCH (10:10)
[2017-05-08] MEDS: SODIUM CHLORIDE 0.9% FLUSH 10 ML FLUSH IV FLUSH SCH ×2 (10:11→21:00)
[2017-05-08] MEDS: BUDESONIDE-FORMOTEROL 160/4.5 MCG INHALER INH SCH ×2 (10:11→21:18)
[2017-05-08] MEDS: METHOCARBAMOL 500 MG TAB PO SCH ×3 (10:56→17:39)
[2017-05-08] MEDS: RESP: ALBUTEROL 2.5 MG/IPRATROPIUM 0.5 MG NEB (PRN) NEB (11:05)
--- NOTE | 2017-05-08 14:57 | PD.CARD.PN ---
Subjective Subjective Remarks The patient denies acute cardiac complaints. Concerned about device. Device interrogated this morning revealing that the device remains at JADIEL, NOT EOL. (Arlen Negrete) Objective Medications Current Medications Medications (Trade) Dose Ordered Sig/Margarita Route Start Time Stop Time Status Last Admin (Symbicort 160-4.5 Mcg Inh) 2 puff Q12HR INH 05/02/17 21:00 05/08/17 10:11 (Mucinex Er) 600 mg BID PO 05/02/17 21:00 05/08/17 10:10 (Duoneb Neb) 1 ampule Q2HR NEB PRN NEB 05/02/17 19:15 05/08/17 11:05 (NS Flush) 2 ml UNSCH PRN IV FLUSH 05/02/17 19:15 05/06/17 05:18 (NS Flush) 2 ml BID IV FLUSH 05/02/17 21:00 05/08/17 10:11 (Zofran Inj) 4 mg Q6H PRN IVP 05/02/17 19:15 (Lovenox Inj) 40 mg Q24H SQ 05/02/17 21:00 Future Hold 05/03/17 21:33 (Tylenol) 650 mg Q6H PRN PO 05/02/17 19:15 (Rutherford 5-325 Mg) 1 tab Q4H PRN PO 05/02/17 19:15 (Rutherford 10-325 Mg) 1 tab Q4H PRN PO 05/02/17 19:15 05/05/17 22:19 (Leann-Colace) 1 tab BID PO 05/02/17 21:00 05/08/17 10:09 (Milk Of Magnesia Liq) 30 ml Q12H PRN PO 05/02/17 19:15 (Senokot) 17.2 mg Q12H PRN PO 05/02/17 19:15 (Dulcolax Supp) 10 mg DAILY PRN RECTAL 05/02/17 19:15 (Lactulose Liq) 30 ml DAILY PRN PO 05/02/17 19:15 05/07/17 08:11 (Ecotrin Ec) 81 mg DAILY PO 05/03/17 09:00 05/08/17 10:09 (Lipitor) 80 mg HS PO 05/02/17 21:00 05/07/17 20:50 (Coreg) 6.25 mg BID PO 05/02/17 21:00 05/08/17 10:09 (Plavix) 75 mg DAILY PO 05/03/17 09:00 05/08/17 10:10 (Lanoxin) 0.125 mg DAILY PO 05/03/17 09:00 05/08/17 10:10 (Lasix) 80 mg DAILY PO 05/03/17 09:00 05/08/17 10:10 (Neurontin) 600 mg TID PO 05/03/17 09:00 05/08/17 13:35 (Ativan) 0.5 mg TID PRN PO 05/02/17 19:15 05/06/17 22:22 (Robaxin) 1,500 mg TID PO 05/03/17 09:00 05/08/17 13:35 (Aldactone) 25 mg DAILY PO 05/03/17 09:00 05/08/17 10:10 (Robitussin Liq) 200 mg Q4H PRN PO 05/03/17 10:45 05/04/17 06:05 (Creighton Darryl) 1 lozenge UNSCH PRN BUCCAL 05/03/17 10:45 05/07/17 18:59 (Eucerin Cream) 1 applic Q6H PRN TOPICAL 05/04/17 11:00 (Zithromax) 500 mg DAILY PO 05/05/17 09:00 05/08/17 10:09 (Lasix) 40 mg HS PO 05/04/17 21:00 05/07/17 20:50 (SoluMEDROL INJ) 40 mg BID IV PUSH 05/06/17 21:00 05/08/17 10:08 Vital Signs / I&O Vital Signs Date Time Temp Pulse Resp B/P (MAP) Pulse Ox O2 Delivery O2 Flow Rate FiO2 05/08/17 11:15 97.9 72 20 127/77 (94) 93 05/08/17 11:00 72 05/08/17 11:00 93 Nasal Cannula 2.00 05/08/17 07:41 93 Nasal Cannula 2.00 05/08/17 07:15 98.6 72 18 126/83 (97) 94 05/08/17 07:00 94 Nasal Cannula 2.00 1/5/18 07:00 72 05/08/17 04:00 98.7 62 18 129/73 (91) 96 05/08/17 04:00 72 05/08/17 04:00 96 Nasal Cannula 2.00 05/08/17 00:00 68 20 122/69 (86) 95 05/08/17 00:00 68 05/08/17 00:00 95 Nasal Cannula 3.00 05/07/17 20:00 94 Nasal Cannula 3.00 05/07/17 20:00 90 05/07/17 20:00 94 Nasal Cannula 3.00 05/07/17 20:00 97.4 90 22 129/82 (98) 94 05/07/17 17:01 95 Nasal Cannula 3.00 05/07/17 17:01 95 Nasal Cannula 3.00 05/07/17 17:00 80 05/07/17 17:00 98.8 80 20 130/79 (96) 95 05/07/17 16:00 98.0 90 20 128/73 (91) 95 I/O 05/07/17 05/07/17 05/07/17 05/08/17 05/08/17 05/08/17 07:00 15:00 23:00 07:00 15:00 23:00 Intake Total 780 ml 1240 ml 260 ml Output Total 600 ml 400 ml Balance 780 ml 640 ml -140 ml Intake Oral 780 ml 1240 ml 260 ml Output Urine Total 600 ml 400 ml # Voids 4 # Bowel Movements 0 1 1 Physical Exam GENERAL: Tearful, middle aged male in CVICU SKIN: Warm and dry. HEAD: Normocephalic. EYES: No scleral icterus. No injection or drainage. NECK: Supple, trachea midline. CARDIOVASCULAR: Regular rate and rhythm, left chest ICD RESPIRATORY: Diminished air movement, CTA GASTROINTESTINAL: Abdomen soft, non-tender, nondistended. MUSCULOSKELETAL: No cyanosis, or edema. BACK: Nontender without obvious deformity. (Arlen Negrete) Assessment and Plan Assessment and Plan 1. Shortness of breath, multifactorial. Upper respiratory infection with acute bronchitis on azithromycin, COPD exacerbation, and acute on chronic CHF exacerbation 2. Dilated cardiomyopathy [place] [employer] Functional Class II, etiology atherosclerotic heart disease, history of massive myocardial infarction in the past culminating in cardiac catheterization and four vessel coronary bypass grafting surgery. 3. Complex ventricular arrhythmias. He has a [employer] device. The chest x-ray demonstrates an epicardial LV pace sense lead. Device interrogation reveals generator at JADIEL. History of device infection. 4. History of atrial fibrillation. 5. Two previous admissions in the past three years for congestive heart failure. 6. COPD, remote smoking history. 7. Hypertension. 8. Dyslipidemia. 9. ALLERGY TO SEAFOOD including hives and anaphylaxis, rule out iodine allergy. 10. Mild renal insufficiency. PLAN: Hold off on ICD generator change out due to elevated WBC with history of device infection. Transition care back to [facility] who is known to The patient was seen and evaluated by Dr Ybarra who completed face to face encounter and physical exam and participated in evaluation and management. (Arlen Negrete) Assessment and Plan The exam, history, and the medical decision-making described in the above note were completed with the assistance of the mid-level provider. I reviewed and agree with the findings presented. I attest that I had a [id number] encounter with the patient on the same day, and personally performed and documented my assessment and findings in the medical record. On antibiotics with elevated WCC, hold off until more stable. (Allan Ybarra MD) Arlen Negrete May 08, 2017 14:57 Allan Ybarra MD May 08, 2017 18:28
--- NOTE | 2017-05-08 19:39 | HHI.PR ---
Subjective Remarks patient resting in bed, he will need to change his pacer however will hold that for now will check chest x-ray CBC BMP Objective Vitals Vital Signs Date Time Temp Pulse Resp B/P (MAP) Pulse Ox O2 Delivery O2 Flow Rate FiO2 05/08/17 15:15 98.9 77 20 118/71 (87) 92 05/08/17 15:00 77 05/08/17 15:00 93 Nasal Cannula 2.00 05/08/17 11:15 97.9 72 20 127/77 (94) 93 05/08/17 11:00 72 05/08/17 11:00 93 Nasal Cannula 2.00 05/08/17 07:41 93 Nasal Cannula 2.00 05/08/17 07:15 98.6 72 18 126/83 (97) 94 05/08/17 07:00 94 Nasal Cannula 2.00 05/08/17 07:00 72 05/08/17 04:00 98.7 62 18 129/73 (91) 96 05/08/17 04:00 72 05/08/17 04:00 96 Nasal Cannula 2.00 05/08/17 00:00 68 20 122/69 (86) 95 05/08/17 00:00 68 05/08/17 00:00 95 Nasal Cannula 3.00 05/07/17 20:00 94 Nasal Cannula 3.00 05/07/17 20:00 90 05/07/17 20:00 94 Nasal Cannula 3.00 05/07/17 20:00 97.4 90 22 129/82 (98) 94 I/O 05/07/17 05/07/17 05/07/17 05/08/17 05/08/17 05/08/17 07:00 15:00 23:00 07:00 15:00 23:00 Intake Total 780 ml 1240 ml 260 ml 930 ml Output Total 600 ml 400 ml 400 ml Balance 780 ml 640 ml -140 ml 530 ml Intake Oral 780 ml 1240 ml 260 ml 930 ml Output Urine Total 600 ml 400 ml 400 ml # Voids 4 2 # Bowel Movements 0 1 1 1 Result Diagram: 05/06/17 0618 05/07/17 1243 Objective Remarks GENERAL: This is a well-nourished, well-developed patient, in no apparent distress. SKIN: No rashes, warm and dry HEAD: Atraumatic. Normocephalic. EYES: Pupils equal round and reactive. Extraocular motions intact. No scleral icterus. ENT: Nose without bleeding, or drainage, Airway patent. NECK: Trachea midline. Supple CARDIOVASCULAR: Regular rate and rhythm without murmurs, gallops, or rubs. RESPIRATORY: Positive wheezes bilaterally GASTROINTESTINAL: Abdomen soft, non-tender, nondistended. Positive bowel sounds MUSCULOSKELETAL: Extremities without clubbing, cyanosis, or edema. Pedal pulses appreciated NEUROLOGICAL: Awake and alert. Moves all extremity. Normal speech.no focal neurological deficit A/P Problem List: (1) COPD (chronic obstructive pulmonary disease) ICD Code: J44.9 - Chronic obstructive pulmonary disease Status: Acute (2) CHF (congestive heart failure) ICD Code: I50.9 - Heart failure, unspecified Status: Acute (3) HTN (hypertension), benign ICD Code: I10 - Benign hypertension Status: Acute (4) A-fib ICD Code: I48.91 - Unspecified atrial fibrillation Assessment and Plan 05/09/17:due to increased WBC to 21K today, cardiology will hold on changing the pacer, and monitoring clinical improvement, will repeat CBC in a.m. A/P: 66 old male admitted secondary to COPD exacerbation and CHF exacerbation COPD exacerbation Continue systemic steroids Into the breathing treatments as needed Oxygen supplementation Continue Symbicort Will add 5 day course of azithromycin to cover to atypicals. CHF exacerbation Pulmonary edema Acute on chronic systolic CHF Increased baseline Lasix for now, on 40mg IV q24hrs Follow clinically for improvement in pulmonary edema Follow renal function add fluid restriction to 1500ml/day Hypertension Continue baseline treatment Follow blood pressures Atrial fibrillation Continue digoxin Continue home treatments Follow on telemetry Pacemaker Low pacemaker battery Pacemaker interrogation in February showed low battery. Patient recommended to get replacement within 3 months, at last interrogation The patient has been unable to arrange placement as an outpatient with [employer] Repeat pacemaker interrogation Cardiology evaluated the patient but official report not yet available. awaiting their final recs (patient reports Dr. Mata placed the current pacemaker) DVT proph: lovenox Problem Qualifiers (1) CHF (congestive heart failure): Qualified Codes: I50.9 - Heart failure, unspecified Kishore Castillo MD May 08, 2017 19:39
[2017-05-08] MEDS: FUROSEMIDE 40 MG TAB PO SCH (21:19)
[2017-05-08] MEDS: ATORVASTATIN 80 MG TAB PO SCH (21:19)
[2017-05-08] MEDS: EUCERIN CREAM 120 GM JAR TOPICAL PRN (21:23)
[2017-05-09] VITALS (30 sets, daily range): BP systolic 116–155; BP diastolic 68–74; PULSE 62–92; RESP 19–20; TEMP 97.4–98.7; O2SAT 94–95
[2017-05-09] MEDS: CLOPIDOGREL 75 MG TAB PO SCH (08:52)
[2017-05-09] MEDS: ASPIRIN EC 81 MG TABEC PO SCH (08:52)
[2017-05-09] MEDS: SODIUM CHLORIDE 0.9% FLUSH 10 ML FLUSH IV FLUSH SCH ×2 (09:00→21:00)
[2017-05-09] MEDS: DOCUSATE SODIUM 50 MG/SENNA 8.6 MG TAB PO SCH ×2 (09:00→21:08)
[2017-05-09] MEDS: BUDESONIDE-FORMOTEROL 160/4.5 MCG INHALER INH SCH ×2 (09:06→21:08)
[2017-05-09] MEDS: GABAPENTIN 300 MG CAP PO SCH ×3 (09:07→17:10)
[2017-05-09] MEDS: SPIRONOLACTONE 25 MG TAB PO SCH (09:07)
[2017-05-09] MEDS: AZITHROMYCIN 250 MG TAB PO SCH (09:07)
[2017-05-09] MEDS: DIGOXIN 0.125 MG TAB PO SCH (09:07)
[2017-05-09] MEDS: CARVEDILOL 6.25 MG TAB PO SCH ×2 (09:07→21:07)
[2017-05-09] MEDS: methylPREDNISolone SOD SUCC 40 MG/1 ML VIAL IV PUSH SCH (09:07)
[2017-05-09] MEDS: METHOCARBAMOL 500 MG TAB PO SCH ×3 (09:08→17:10)
[2017-05-09] MEDS: FUROSEMIDE 80 MG TAB PO SCH (09:08)
[2017-05-09] MEDS: guaiFENesin E.R. 600 MG TAB PO SCH ×2 (09:08→21:08)
[2017-05-09] MEDS: RESP: ALBUTEROL 2.5 MG/IPRATROPIUM 0.5 MG NEB (PRN) NEB (09:43)
[2017-05-09] MEDS: EUCERIN CREAM 120 GM JAR TOPICAL PRN (11:56)
--- NOTE | 2017-05-09 12:39 | RADRPT ---
EXAM DATE/TIME: 05/09/2017 10:59 [place] COMPARISON: CHEST SINGLE AP, May 02, 2017, 17:41. INDICATIONS : Cough. MEDICAL HISTORY : Chronic obstructive pulmonary disease. Congestive heart failure. Hypertension. AFIB, Myocardial infarction. SURGICAL HISTORY : CABG. Pacemaker. ENCOUNTER: Subsequent ACUITY: 1 day PAIN SCORE: 0/10 LOCATION: Bilateral chest. FINDINGS: Median sternotomy wires are noted status post cardiac surgery. Left subclavian dual lead pacemaker vela s its tips in the right atrium and right ventricle. Pulmonary vascular pattern is normal. The lungs a re clear. CONCLUSION: No acute cardiopulmonary disease. Braden Castillo MD on May 09, 2017 at 12:36 Board Certified Radiologist. This report was verified electronically.
[2017-05-09 12:58] LABS: AUTOMATED NEUTROPHIL # 19.9 TH/MM3 (1.8-7.7); BASOPHIL % 0.2 % (0.0-2.0); HEMATOCRIT 52.9 % (39.0-51.0); HEMOGLOBIN 18.1 GM/DL (13.0-17.0); LYMPH % 3.1 % (9.0-44.0); LYMPHOCYTE # 0.7 TH/MM3 (1.0-4.8); MEAN CELL VOLUME 95.2 FL (80.0-100.0); MEAN CORPUSCULAR HEMOGLOBIN 32.6 PG (27.0-34.0); MEAN CORPUSCULAR HGB CONC 34.3 % (32.0-36.0); MEAN PLATELET VOLUME 10.9 FL (7.0-11.0); MONO % 3.3 % (0.0-8.0); MONOCYTE # 0.7 TH/MM3 (0-0.9); NEUT % 93.4 % (16.0-70.0); PLATELET COUNT 197 TH/MM3 (150-450); RED BLOOD COUNT 5.55 MIL/MM3 (4.50-5.90); RED CELL DISTRIBUTION WIDTH 13.1 % (11.6-17.2); WHITE BLOOD COUNT 21.3 TH/MM3 (4.0-11.0)
[2017-05-09 13:27] LABS: BICARBONATE 27.6 MEQ/L (21.0-32.0); CREATININE 1.16 MG/DL (0.60-1.30); MAGNESIUM 2.6 MG/DL (1.5-2.5); PHOSPHORUS 3.8 MG/DL (2.5-4.9)
--- NOTE | 2017-05-09 18:41 | MB ---
cc: IDRIS OJHNSON MD DATE OF CONSULTATION 05/09/[address] Castillo REASON FOR CONSULTATION Help with clearance for pacer replacement with history of infected pacer in the past, now patient with COPD exacerbation, leukocytosis. HISTORY OF PRESENT ILLNESS This is a 66-year-old white male who has a history of cardiac pacer. The patient was admitted with COPD exacerbation on 05/02. The patient was admitted to the hospital and started on antibiotics. On admission, his white blood cell count was 7.2 on 05/02. After that, the white count started climbing and increased to 18.8 on 05/04/2017. He was given Solu-Medrol beginning 05/02 and he has continued to receive Solu-Medrol. The white count today is 21.3. The patient has cough, but he denies fevers, chills, nausea or vomiting. He has been afebrile. The last chest x-ray today shows no acute cardiopulmonary disease. Chest x-ray from 05/02 also showed no acute cardiopulmonary disease. The patient notes that he has a little pain in the left chest when he coughs but otherwise no other symptoms. The plans were to replace his cardiac pacemaker/defibrillator battery but clearance is needed. PAST MEDICAL HISTORY 1. Dilated cardiomyopathy, 2. COPD, 3. Hypertension, 4. Dyslipidemia, 5. History of atrial fibrillation, 6. Congestive heart failure 7. History of coronary artery graft surgery AICD initially placed in 2005. The patient had a pacemaker infection after it was replaced in 2012 and he was treated with antibiotics and resolved without having to remove the pacemaker. ALLERGIES TRAMADOL DULOXETINE MRI PRECAUTIONS MEDICATIONS 1. Zithromax 2. Prednisone p.o. 3. Lasix. 4. Aspirin. 5. Plavix. 6. Digoxin, 7. Lasix. 8. Neurontin. 9. Robaxin. 10. Aldactone. 11. Mucinex 12. Lipitor. 13. Leann-Colace 14. [place] 10 p.r.n. 26. Lactulose. SOCIAL HISTORY No tobacco use. The patient started to quit smoking cigarettes 3 months ago. No alcohol. No illicit drugs. FAMILY HISTORY Noncontributory. REVIEW OF SYSTEMS Negative on 10-point review. PHYSICAL EXAMINATION GENERAL: This is a pleasant well-developed male who is in no acute distress. Awake, alert and oriented. VITAL SIGNS: Temperature 98.3, BP 165/74, respirations 20, heart rate 82. HEENT: Head atraumatic. Extraocular movements grossly intact. Pupils reactive to light. No icterus. Oropharynx moist mucosa. No lesions. NECK: Supple without adenopathy. LUNGS: Slight rhonchi at the bases. CHEST: Pacemaker in place at the left upper chest which is intact and has no signs of infection. HEART: Regular S1 and S2 without murmurs. ABDOMEN: Bowel sounds present, soft, nontender. RECTAL: Not performed. EXTREMITIES: No clubbing or cyanosis or edema. SKIN: No rash. NEUROLOGIC: No gross focal findings. PSYCHIATRIC: The patient is calm and cooperative. LABORATORY DATA WBC 21.3, 93% neutrophils, hemoglobin 18.1 and platelets 197. Creatinine 1.16, BUN 40, sodium 136. IMPRESSION 1. Leukocytosis. 2. COPD exacerbation. Patient with negative chest x-ray as far as infiltrate is concerned. 3. The patient in need of pacemaker battery replacement. RECOMMENDATIONS The leukocytosis is very likely due to steroids. The patient was started on steroids on 05/02 at which time his white count was normal and the white count has increased. Chest x-ray is unremarkable at this point. The patient has a history of infection of pacemaker in the past when it was previously replaced. As far as clearance for the new pacemaker placement or battery replacement, since the patient has leukocytosis I recommend that we at least try to see if the white blood cell count will respond to a change of the steroid to prednisone and possibly taper the steroid if feasible and see if the white blood cell count will improve. If the pacemaker replacement is emergent, then I would see no problems doing so. If it is not emergent, then it may be prudent to observe him and observe the white count. If the white blood cell count goes down to normal then the procedure can be performed if he continues on the steroids and the white blood cell count remains elevated. I would wait to do the procedure if at all possible. We will also observe for any additional evidence of infection that may explain the white count besides steroids. Thank you for this consultation. I will see the patient periodically and follow the white blood cell count with you. Idris Johnson MD FD/ /5:06 PM /6:04 PM
[2017-05-09] MEDS: ATORVASTATIN 80 MG TAB PO SCH (21:07)
[2017-05-09] MEDS: predniSONE 20 MG TAB PO SCH (21:08)
[2017-05-09] MEDS: FUROSEMIDE 40 MG TAB PO SCH (21:08)
--- NOTE | 2017-05-09 21:17 | HHI.PR ---
Subjective Remarks resting in bed feeling and breathing better, Afebrile Objective Vitals Vital Signs Date Time Temp Pulse Resp B/P (MAP) Pulse Ox O2 Delivery O2 Flow Rate FiO2 05/09/17 19:39 Nasal Cannula 2.00 05/09/17 18:00 78 05/09/17 17:00 82 05/09/17 16:00 79 05/09/17 15:30 98.3 84 20 155/74 (101) 94 05/09/17 15:28 94 Nasal Cannula 3.00 05/09/17 15:00 82 05/09/17 14:00 83 05/09/17 13:00 82 05/09/17 12:00 84 05/09/17 11:33 98.3 78 20 117/70 (86) 94 05/09/17 11:32 94 Nasal Cannula 3.00 05/09/17 11:00 85 05/09/17 10:00 82 05/09/17 09:43 95 Nasal Cannula 3.00 05/09/17 09:00 73 05/09/17 08:00 78 05/09/17 07:34 98.1 73 20 116/68 (84) 95 05/09/17 07:34 95 Nasal Cannula 3.00 05/09/17 07:00 67 05/09/17 06:00 62 05/09/17 05:00 71 05/09/17 04:00 70 05/09/17 03:15 97.4 70 19 127/70 (89) 95 05/09/17 03:00 95 Nasal Cannula 2.00 05/09/17 03:00 92 05/09/17 02:00 67 05/09/17 01:00 73 05/09/17 00:00 69 05/08/17 23:15 98.9 73 16 110/58 (75) 95 05/08/17 23:00 98.9 73 16 110/58 (75) 95 05/08/17 23:00 95 Nasal Cannula 2.00 05/08/17 23:00 79 05/08/17 22:00 77 I/O 05/08/17 05/08/17 05/08/17 05/09/17 05/09/17 05/09/17 07:00 15:00 23:00 07:00 15:00 23:00 Intake Total 260 ml 930 ml 720 ml 820 ml Output Total 400 ml 400 ml 350 ml Balance -140 ml 530 ml 370 ml 820 ml Intake Oral 260 ml 930 ml 720 ml 820 ml Output Urine Total 400 ml 400 ml 350 ml # Voids 2 5 # Bowel Movements 1 1 0 Result Diagram: 05/09/17 1237 05/09/17 1237 Objective Remarks GENERAL: This is a well-nourished, well-developed patient, in no apparent distress. SKIN: No rashes, warm and dry HEAD: Atraumatic. Normocephalic. EYES: Pupils equal round and reactive. Extraocular motions intact. No scleral icterus. ENT: Nose without bleeding, or drainage, Airway patent. NECK: Trachea midline. Supple CARDIOVASCULAR: Regular rate and rhythm without murmurs, gallops, or rubs. RESPIRATORY: Positive wheezes bilaterally GASTROINTESTINAL: Abdomen soft, non-tender, nondistended. Positive bowel sounds MUSCULOSKELETAL: Extremities without clubbing, cyanosis, or edema. Pedal pulses appreciated NEUROLOGICAL: Awake and alert. Moves all extremity. Normal speech.no focal neurological deficit A/P Problem List: (1) COPD (chronic obstructive pulmonary disease) ICD Code: J44.9 - Chronic obstructive pulmonary disease Status: Acute (2) CHF (congestive heart failure) ICD Code: I50.9 - Heart failure, unspecified Status: Acute (3) HTN (hypertension), benign ICD Code: I10 - Benign hypertension Status: Acute (4) A-fib ICD Code: I48.91 - Unspecified atrial fibrillation Assessment and Plan 05/09/17:Consult ID, check CBC BMP and BNP in a.m., DC Solu-Medrol switched her prednisone, chest x-ray repeated showed decreased pulmonary congestion A/P: 66 old male admitted secondary to COPD exacerbation and CHF exacerbation COPD exacerbation Continue systemic steroids Into the breathing treatments as needed Oxygen supplementation Continue Symbicort Will add 5 day course of azithromycin to cover to atypicals. CHF exacerbation Pulmonary edema Acute on chronic systolic CHF Increased baseline Lasix for now, on 40mg IV q24hrs Follow clinically for improvement in pulmonary edema Follow renal function add fluid restriction to 1500ml/day Hypertension Continue baseline treatment Follow blood pressures Atrial fibrillation Continue digoxin Continue home treatments Follow on telemetry Pacemaker Low pacemaker battery Pacemaker interrogation in February showed low battery. Patient recommended to get replacement within 3 months, at last interrogation The patient has been unable to arrange placement as an outpatient with [employer] Repeat pacemaker interrogation Cardiology evaluated the patient but official report not yet available. awaiting their final recs (patient reports Dr. Mata placed the current pacemaker) DVT proph: lovenox Problem Qualifiers (1) CHF (congestive heart failure): Qualified Codes: I50.9 - Heart failure, unspecified Kishore Castillo MD May 09, 2017 21:17
[2017-05-10] VITALS (28 sets, daily range): BP systolic 99–123; BP diastolic 55–66; PULSE 65–96; RESP 16–18; TEMP 98–98.8; O2SAT 93–99
[2017-05-10 06:07] LABS: AUTOMATED NEUTROPHIL # 16.1 TH/MM3 (1.8-7.7); BASOPHIL % 0.1 % (0.0-2.0); HEMATOCRIT 48.4 % (39.0-51.0); HEMOGLOBIN 16.6 GM/DL (13.0-17.0); LYMPH % 4.9 % (9.0-44.0); LYMPHOCYTE # 0.9 TH/MM3 (1.0-4.8); MEAN CELL VOLUME 94.8 FL (80.0-100.0); MEAN CORPUSCULAR HEMOGLOBIN 32.5 PG (27.0-34.0); MEAN CORPUSCULAR HGB CONC 34.2 % (32.0-36.0); MEAN PLATELET VOLUME 11.2 FL (7.0-11.0); MONO % 3.2 % (0.0-8.0); MONOCYTE # 0.6 TH/MM3 (0-0.9); NEUT % 91.8 % (16.0-70.0); PLATELET COUNT 162 TH/MM3 (150-450); WHITE BLOOD COUNT 17.6 TH/MM3 (4.0-11.0)
[2017-05-10] MEDS: BUDESONIDE-FORMOTEROL 160/4.5 MCG INHALER INH SCH ×2 (08:45→21:20)
[2017-05-10] MEDS: SPIRONOLACTONE 25 MG TAB PO SCH (08:45)
[2017-05-10] MEDS: GABAPENTIN 300 MG CAP PO SCH ×3 (08:45→17:57)
[2017-05-10] MEDS: FUROSEMIDE 80 MG TAB PO SCH (08:46)
[2017-05-10] MEDS: DIGOXIN 0.125 MG TAB PO SCH (08:46)
[2017-05-10] MEDS: METHOCARBAMOL 500 MG TAB PO SCH ×3 (08:46→17:57)
[2017-05-10] MEDS: AZITHROMYCIN 250 MG TAB PO SCH (08:46)
[2017-05-10] MEDS: CARVEDILOL 6.25 MG TAB PO SCH ×2 (08:46→21:21)
[2017-05-10] MEDS: CLOPIDOGREL 75 MG TAB PO SCH ×2 (08:47→08:55)
[2017-05-10] MEDS: SODIUM CHLORIDE 0.9% FLUSH 10 ML FLUSH IV FLUSH SCH ×2 (08:47→21:21)
[2017-05-10] MEDS: predniSONE 20 MG TAB PO SCH ×2 (08:47→21:21)
[2017-05-10] MEDS: ASPIRIN EC 81 MG TABEC PO SCH ×2 (08:47→08:55)
[2017-05-10] MEDS: guaiFENesin E.R. 600 MG TAB PO SCH ×2 (08:48→22:33)
[2017-05-10] MEDS: DOCUSATE SODIUM 50 MG/SENNA 8.6 MG TAB PO SCH ×2 (09:00→21:21)
[2017-05-10] MEDS: FUROSEMIDE 40 MG TAB PO SCH (21:21)
[2017-05-10] MEDS: ATORVASTATIN 80 MG TAB PO SCH (21:21)
--- NOTE | 2017-05-10 21:38 | HHI.PR ---
Subjective Remarks follow-up on COPD exacerbation, also patient needs to have a SOFTWARE [employer]PUT[employer] pacer replaced No acute issues overnight, afebrile,the plan was to replace pacer before the weekend then cardiology decided to wait until WBC start trending down Objective Vitals Vital Signs Date Time Temp Pulse Resp B/P (MAP) Pulse Ox O2 Delivery O2 Flow Rate FiO2 05/10/17 19:50 21 05/10/17 18:00 76 05/10/17 17:00 76 05/10/17 16:00 74 05/10/17 15:00 85 05/10/17 15:00 98 Nasal Cannula 2.00 05/10/17 15:00 98.4 85 16 118/60 (79) 98 05/10/17 14:00 74 05/10/17 13:00 70 05/10/17 12:13 96 21 05/10/17 12:00 74 05/10/17 11:00 98.5 96 16 123/64 (83) 99 05/10/17 11:00 99 Nasal Cannula 2.00 05/10/17 11:00 96 05/10/17 10:00 71 05/10/17 09:00 76 05/10/17 08:46 96 Nasal Cannula 2.00 05/10/17 08:00 71 05/10/17 07:00 98.3 94 16 120/63 (82) 97 05/10/17 07:00 94 05/10/17 07:00 96 Nasal Cannula 2.00 05/10/17 06:01 71 05/10/17 05:00 79 05/10/17 04:05 65 05/10/17 03:09 69 05/10/17 03:04 98.0 74 99/55 (70) 95 05/10/17 03:04 Nasal Cannula 2.00 05/10/17 02:00 65 05/10/17 01:00 68 05/10/17 00:00 82 05/09/17 23:46 98.7 82 125/68 (87) 94 05/09/17 23:46 Nasal Cannula 2.00 05/09/17 23:00 85 05/09/17 22:00 84 I/O 05/09/17 05/09/17 05/09/17 05/10/17 05/10/17 05/10/17 07:00 15:00 23:00 07:00 15:00 23:00 Intake Total 720 ml 820 ml 240 ml 350 ml Output Total 350 ml 900 ml Balance 370 ml 820 ml 240 ml -550 ml Intake Oral 720 ml 820 ml 240 ml 350 ml Output Urine Total 350 ml 900 ml # Voids 5 3 # Bowel Movements 0 Result Diagram: 05/10/17 0455 05/09/17 1237 Objective Remarks GENERAL: This is a well-nourished, well-developed patient, in no apparent distress. SKIN: No rashes, warm and dry HEAD: Atraumatic. Normocephalic. EYES: Pupils equal round and reactive. Extraocular motions intact. No scleral icterus. ENT: Nose without bleeding, or drainage, Airway patent. NECK: Trachea midline. Supple CARDIOVASCULAR: Regular rate and rhythm without murmurs, gallops, or rubs. RESPIRATORY: Positive wheezes bilaterally GASTROINTESTINAL: Abdomen soft, non-tender, nondistended. Positive bowel sounds MUSCULOSKELETAL: Extremities without clubbing, cyanosis, or edema. Pedal pulses appreciated NEUROLOGICAL: Awake and alert. Moves all extremity. Normal speech.no focal neurological deficit A/P Problem List: (1) COPD (chronic obstructive pulmonary disease) ICD Code: J44.9 - Chronic obstructive pulmonary disease Status: Acute (2) CHF (congestive heart failure) ICD Code: I50.9 - Heart failure, unspecified Status: Acute (3) HTN (hypertension), benign ICD Code: I10 - Benign hypertension Status: Acute (4) A-fib ICD Code: I48.91 - Unspecified atrial fibrillation Assessment and Plan 05/10/17: the plan was to replace pacer before the weekend however due to increased WBC which most likely related to steroid-induced decided to wait until WBC start trending down, as recommended by ID who was consulted, Repeat CBC in a.m. A/P: 66 old male admitted secondary to COPD exacerbation and CHF exacerbation COPD exacerbation Continue systemic steroids Into the breathing treatments as needed Oxygen supplementation Continue Symbicort Will add 5 day course of azithromycin to cover to atypicals. CHF exacerbation Pulmonary edema Acute on chronic systolic CHF Increased baseline Lasix for now, on 40mg IV q24hrs Follow clinically for improvement in pulmonary edema Follow renal function add fluid restriction to 1500ml/day Hypertension Continue baseline treatment Follow blood pressures Atrial fibrillation Continue digoxin Continue home treatments Follow on telemetry Pacemaker Low pacemaker battery Pacemaker interrogation in February showed low battery. Patient recommended to get replacement within 3 months, at last interrogation The patient has been unable to arrange placement as an outpatient with [employer] Repeat pacemaker interrogation Cardiology evaluated the patient but official report not yet available. awaiting their final recs (patient reports Dr. Mata placed the current pacemaker) DVT proph: lovenox Problem Qualifiers (1) CHF (congestive heart failure): Qualified Codes: I50.9 - Heart failure, unspecified Kishore Castillo MD May 10, 2017 21:38
[2017-05-10] MEDS: MENTHOL LOZENGE BUCCAL PRN (22:33)
[2017-05-11] VITALS (22 sets, daily range): BP systolic 101–121; BP diastolic 56–83; PULSE 60–90; RESP 17–20; TEMP 97.6–98.8; O2SAT 92–97
[2017-05-11 07:15] LABS: HEMATOCRIT 48.8 % (39.0-51.0); HEMOGLOBIN 16.1 GM/DL (13.0-17.0); MEAN CELL VOLUME 95.4 FL (80.0-100.0); MEAN CORPUSCULAR HEMOGLOBIN 31.5 PG (27.0-34.0); MEAN PLATELET VOLUME 11.1 FL (7.0-11.0); PLATELET COUNT 158 TH/MM3 (150-450); RED BLOOD COUNT 5.12 MIL/MM3 (4.50-5.90); RED CELL DISTRIBUTION WIDTH 13.1 % (11.6-17.2); WHITE BLOOD COUNT 15.1 TH/MM3 (4.0-11.0)
[2017-05-11] MEDS: predniSONE 20 MG TAB PO SCH ×2 (07:40→20:49)
[2017-05-11] MEDS: BUDESONIDE-FORMOTEROL 160/4.5 MCG INHALER INH SCH ×2 (07:40→21:04)
[2017-05-11] MEDS: AZITHROMYCIN 250 MG TAB PO SCH (07:41)
[2017-05-11] MEDS: METHOCARBAMOL 500 MG TAB PO SCH ×3 (07:41→17:24)
[2017-05-11] MEDS: SPIRONOLACTONE 25 MG TAB PO SCH (07:41)
[2017-05-11] MEDS: DIGOXIN 0.125 MG TAB PO SCH (07:41)
[2017-05-11] MEDS: FUROSEMIDE 80 MG TAB PO SCH (07:41)
[2017-05-11] MEDS: DOCUSATE SODIUM 50 MG/SENNA 8.6 MG TAB PO SCH ×2 (07:41→20:51)
[2017-05-11] MEDS: CARVEDILOL 6.25 MG TAB PO SCH ×2 (07:42→20:49)
[2017-05-11] MEDS: SODIUM CHLORIDE 0.9% FLUSH 10 ML FLUSH IV FLUSH SCH ×2 (07:42→20:51)
[2017-05-11] MEDS: guaiFENesin E.R. 600 MG TAB PO SCH ×2 (07:42→20:48)
[2017-05-11] MEDS: CLOPIDOGREL 75 MG TAB PO SCH (07:42)
[2017-05-11] MEDS: ASPIRIN EC 81 MG TABEC PO SCH (07:42)
[2017-05-11] MEDS: GABAPENTIN 300 MG CAP PO SCH ×3 (07:42→17:24)
[2017-05-11] MEDS ORDERED: diphenhydrAMINE HCL 50 MG/ML VIAL ONE (08:13)
[2017-05-11] MEDS ORDERED: LIDOCAINE HCL 2% 50 ML VIAL ONE (08:18)
[2017-05-11] MEDS ORDERED: ceFAZolin INJ 1,000 MG VIAL ONE (08:18)
[2017-05-11] MEDS ORDERED: VANCOMYCIN HCL 1000 MG VIAL ONE (08:18)
[2017-05-11] MEDS ORDERED: VANCOMYCIN 500 MG VIAL ONE (08:18)
--- NOTE | 2017-05-11 09:08 | HHI.PR ---
Subjective Remarks S/P Pacemaker battery replacement. Somewhat groggy from anesthesia but states he is feeling well. Objective Vitals Vital Signs Date Time Temp Pulse Resp B/P (MAP) Pulse Ox O2 Delivery O2 Flow Rate FiO2 05/11/17 07:30 96 Room Air 05/11/17 07:30 98.1 74 18 121/57 (78) 96 05/11/17 06:24 75 05/11/17 05:34 68 05/11/17 04:24 65 05/11/17 03:56 94 Room Air 05/11/17 03:56 98.0 73 17 118/69 (85) 94 05/11/17 03:56 68 05/11/17 02:45 79 05/11/17 01:31 73 05/11/17 00:12 65 05/10/17 23:11 98.5 76 18 114/57 (76) 93 05/10/17 23:11 77 05/10/17 23:11 93 Nasal Cannula 05/10/17 22:00 89 05/10/17 21:00 80 05/10/17 20:10 75 05/10/17 19:50 21 05/10/17 19:30 98.8 88 17 121/66 (84) 95 05/10/17 19:30 95 Nasal Cannula 2.00 05/10/17 19:20 87 05/10/17 18:00 76 05/10/17 17:00 76 05/10/17 16:00 74 05/10/17 15:00 85 05/10/17 15:00 98 Nasal Cannula 2.00 05/10/17 15:00 98.4 85 16 118/60 (79) 98 05/10/17 14:00 74 05/10/17 13:00 70 05/10/17 12:13 96 21 05/10/17 12:00 74 05/10/17 11:00 98.5 96 16 123/64 (83) 99 05/10/17 11:00 99 Nasal Cannula 2.00 05/10/17 11:00 96 05/10/17 10:00 71 I/O 05/10/17 05/10/17 05/10/17 05/11/17 05/11/17 05/11/17 07:00 15:00 23:00 07:00 15:00 23:00 Intake Total 240 ml 350 ml 660 ml Output Total 900 ml Balance 240 ml -550 ml 660 ml Intake Oral 240 ml 350 ml 660 ml Output Urine Total 900 ml # Voids 3 3 Result Diagram: 05/11/17 0553 05/09/17 1237 Objective Remarks GENERAL: This is a well-nourished, well-developed patient, in no apparent distress. CARDIOVASCULAR: Normal rate and regular rhythm without murmurs, gallops, or rubs. RESPIRATORY: Good respiratory efforts. Breath sounds equal and clear to auscultation bilaterally. GASTROINTESTINAL: Abdomen soft, non-tender, non-distended. Normal active bowel sounds MUSCULOSKELETAL: Extremities without cyanosis, or edema. NEURO: Alert & Oriented x4 to person, place, time, situation. Moves all ext x4 PSYCH: Appropriate mood and affect. A/P Problem List: (1) COPD (chronic obstructive pulmonary disease) ICD Code: J44.9 - Chronic obstructive pulmonary disease Status: Acute (2) CHF (congestive heart failure) ICD Code: I50.9 - Heart failure, unspecified Status: Acute (3) HTN (hypertension), benign ICD Code: I10 - Benign hypertension Status: Acute (4) A-fib ICD Code: I48.91 - Unspecified atrial fibrillation Assessment and Plan 66 Y/O old male admitted secondary to COPD exacerbation and CHF exacerbation. Patient has leukocytosis likely related to steroids. Patient is status post pacemaker battery replacement today COPD exacerbation Continue systemic steroids, decrease prednisone to 20 mg BID. Into the breathing treatments as needed Oxygen supplementation Continue Symbicort azithromycin to cover atypical. CHF exacerbation Pulmonary edema Acute on chronic systolic CHF Resume home dose Lasix Follow clinically for improvement in pulmonary edema Follow renal function fluid restriction to 1500ml/day Hypertension Continue baseline treatment Follow blood pressures Atrial fibrillation Continue digoxin Continue home treatments Follow on telemetry Pacemaker Low pacemaker battery Pacemaker interrogation in February showed low battery. Patient recommended to get replacement within 3 months, at last interrogation The patient has been unable to arrange placement as an outpatient with [employer] Pacemaker battery replaced today DVT proph: lovenox Discharge Planning Continue to monitor overnight. If continues to improve, DC home in AM. Problem Qualifiers (1) CHF (congestive heart failure): Qualified Codes: I50.9 - Heart failure, unspecified Raymond Matute MD May 11, 2017 09:08
--- NOTE | 2017-05-11 09:11 | CATHPROC ---
[facility] HIS Report Study Information Study Number Admission Scheduled Start Study Start [id number] May 03 2017 3:14PM 05/08/2017 May 11 2017 7:43AM [place] [facility] Cardiac Pacer/ICD Admit Source Facility Department Other [facility] Physician and Clinical Staff Initial Shaneka Reed Dressmaker Garment Fitter Jemal Man,RT(R) Dressmaker Garment Fitter Ct Waldron,RT(R) TECH2 Other Anesthesia, FORESTRY TREE PRUNER Recorder Mary Yancey,RN Scrub Elena eMndes,CERAMIC TILE MECHANIC TECH2 Equipment Time Food Service Sales Representatives Description Size Mfg Part Number Used/Scraped DERMABOND, ADHESIVE SKIN [id number] 08:11 CORDIS/PACER * Used GLUE MINI *[id number] 08:11 MEDLINE INDUSTRIES SUTURE, STRIP PLUS 1/2" * Used *[id number] 08:11 MEDLINE PACER ROBERT, LIMB * 2530 *[id number] Used [id number] 08:11 MEDLINE PACER PACK, PACER CUSTOM * Used *[id number] 08:34 Needle Sponge Count 1 1 Used 08:34 Needle Sponge Count 20 200 Used SUTURE, 2-0 VICRYL [CT1] (CCT693D) [id number] 08:11 [place] MEDICAL BLANKET,WARM AIR CCL * Used *[id number] [facility] PAD, ELECTROSURGICAL 08:11 * [id number] *[id number] Used SURGICAL GROUNDING ORANGE 09:33 VITATRON [employer]TR[employer] DEFIBRILLATOR, VIVA XT RETAIL SALES DIRECTOR-D DDE-DDDR [id number] Used [id number] 08:26 VITATRON MEDTRONIC PLASMABLADE, PEAD 3.0S * Used *[id number] Equipment Model, Serial, Lot Number and Expiration Data Description Model Number Serial Number Lot Number Expiration Date DEFIBRILLATOR, VIVA XT RETAIL SALES DIRECTOR-D [id number] 06-29-2018 History: Allergies Allergy Reaction Fish Containing Products Anaphylaxis/HIVES tramadol THROAT SWELLING duloxetine Anaphylaxis MRI PRECAUTION PATIENT HAS A PACEMAKER ASPARTAME HYPERTENSION MAYONAISE rash Food Additives ITCHING History: Risk Factors Hypertension Dyslipidemia Yes Yes Chronic Lung Disease Labs Hgb (g/dl) Hct (%) RBC (MIL/MM3) WBC (l/cumm) Platelets (thousands) 11.60-17.00 35.00-51.00 4.00-5.90 4.00-11.00 150.00-450.00 16.0 48 5 15.1 158 Glucose (mg/dl) BUN (mg/dl) Creatinine (mg/dl) BUN:Creatinine (1:x) 74.00-106.00 7.00-18.00 0.50-1.30 10.00-20.00 157 40 1.2 33.3 Na (meq/l) K (meq/l) 136.00-145.00 3.50-5.10 137 4.3 INR (PTT:PT) 0.90-1.10 1.1 Medication Medication Total Dose (Bolus/Oral) Medication Total Dosage/Unit 2% XYLOCAINE 50 mL Medications (Bolus/Oral) Medication Time Given Dosage/Unit Administered By Reason 2% XYLOCAINE 05/11/2017 8:45:25 AM 50 mL Shaneka Torres 50 mL 2% XYLOCAINE given in lab by Shaneka Torres in Left shoulder via Subcutaneous. Ordered by Shaneka Torres. Medication (Drip) Medication Time Given Dosage/Unit Concentration/Unit Diluent (ml) Solution ANCEF 05/11/2017 8:31:52 AM 2 g 2 g ANCEF given in lab by Anesthesia, FORESTRY TREE PRUNER via Peripheral IV. Ordered by Shaneka Torres. Reason: As pe r physicians verbal order. VANCOMYCIN DRIP 05/11/2017 8:30:05 AM 1 g 1 g VANCOMYCIN DRIP given in lab by Anesthesia, FORESTRY TREE PRUNER via Peripheral IV. Ordered by Shaneka Torres. Ngoc son: As per physicians verbal order. Initial Case Assessment Cardiovascular HR Rhythm NIBP Chest Pain 77 sr 148/81 0 Edema Present Skin color Skin None Normal Warm Dry Circulatory - Right Pulses Radial 3 Scale (0,1,2,3,4,d) Circulatory - Left Pulses Radial 3 Scale (0,1,2,3,4,d) Circulatory - Lower Extremities Color Lower Right Color Lower Left Normal Normal Neurological State Oriented to time-place- Alert Moves all extremities person Respiration - General Respiration Rate SpO2 (%) (B/min) 20 99 Final Case Assessment Cardiovascular HR NIBP 83 121/74 Edema Present Skin color Skin None Normal Warm Dry Circulatory - Right Pulses Dorsalis Pedis 1 Scale (0,1,2,3,4,d) Circulatory - Left Pulses Dorsalis Pedis 1 Scale (0,1,2,3,4,d) Circulatory - Lower Extremities Color Lower Right Color Lower Left Normal Normal Neurological State Oriented to time-place- Drowsy Moves all extremities person Respiration - General Respiration Rate SpO2 (%) (B/min) 14 98 Chronological Log Time Study Chronological Log 8:10:49 Patient arrived via Bed. 8:10:51 Patient Name, D.O.B, / Armband Verified By R.N. 8:10:52 Consent signed by the physician and the patient and verified by the [employer] staff. 8:10:53 Pre-op and post- op instructions given; patient acknowledges understanding of instructions. 8:10:55 Verbal Stimulation=2 Physical Stimulation=2 Airway=2 Respiration=2 TOTAL=8. (0=absent, 1=li mited, 2=present) 8:10:56 Anesthesia at bedside. Assumes care of patient. Alex 8:11:06 Patient has been NPO for More than 6Hrs. 8:11:08 Skin Breakdown- none per pt but a large, purple ecchymotic area noted to left abd. 8:11:18 Patient Warmer Placed on the Table. 8:16:30 Ryann Prominences Protected 8:16:31 A # 20 IV was noted in the Forearm (right). Grade = 0 0.9ns kvo 8:16:32 A # 20 IV was noted in the Forearm (left). Grade = 0 0.9ns kvo 8:17:26 History and physical on the chart. Assessment: Initial Case, HR=77 BPM, Rhythm=sr, MXZU=956/81 mmhg, Chest Pain=0, Edema=None, [place] r=Normal, Skin = Warm, Dry Right Pulses: Radial=3 Left Pulses: Radial=3 8:23:12 Lower Right Extremities: Color=Normal Lower Left Extremities: Color=Normal Neurological: State=Alert, Ox3, DUGAN Respiration: Resp=20 B/min, SpO2=99 % 8:23:53 Table restraints applied according to hospital policy 8:23:57 Bovie ground pad applied to: right thigh 8:24:07 2% CHLORHEXIDINE GLUCONATE WASH AND NASAL SWIPE DONE PRIOR TO PROCEDURE. 8:25:27 Medtronic rep in EP lab for procedure. 1 g VANCOMYCIN DRIP given in lab by Anesthesia, FORESTRY TREE PRUNER via Peripheral IV. Ordered by Shaneka Torres . Reason: As per 8:30:05 physicians verbal order. 2 g ANCEF given in lab by Anesthesia, FORESTRY TREE PRUNER via Peripheral IV. Ordered by Shaneka Torres. Reason: As per physicians 8:31:52 verbal order. 8:32:29 Left Upper Chest Prepped Times Two. First Sponge And Instrument Count Done by Elena Mendes, CERAMIC TILE MECHANIC TECH2. 8:32:35 Hypo's: 1, Sponges: 20, Bovie/scratch: bovie/scratch Sutures: 2, Blades: 1, Instruments: 26, Syveck Patches: 0 verified by BL 8:35:56 Sterile drape applied. 8:39:29 MD paged 8:40:08 MD arrived. Time Out. Correct patient, procedure, procedure equipment, site and side verified with physician present. Time 8:44:49 concurred by MD, individual staff and FORESTRY TREE PRUNER. Time Out #2 - Consents verified, patient in correct position, all results are labled and display ed, safety precautions 8:45:00 taken, antibiotics administered. Time out concurred by MD, individual staff and FORESTRY TREE PRUNER in procedur e 8:45:00 Case Start 8:45:25 50 mL 2% XYLOCAINE given in lab by Shaneka Torres in Left shoulder via Subcutaneous. Ordered by Shaneka Torres. 8:47:15 Surgical Incision Made. 8:48:20 A device was explanted. 8:49:17 Pocket flushed with antibiotic solution 8:49:41 A DEFIBRILLATOR, VIVA XT RETAIL SALES DIRECTOR-D DDE-DDDR was connected and placed in the pocket. 8:50:39 Reference ECG taken 8:52:57 The device is being connected. 8:54:14 The pocket is being closed. Second Sponge And Instrument Count Done by Elena Mendes, CERAMIC TILE MECHANIC TECH2. 8:54:33 Hypo's: 1, Sponges: 20, Bovie/scratch: bovie/scratch Sutures: 2, Blades: 1, Instruments: 26, Syveck Patches: 0 verified by BL 9:01:07 Implant Procedure was performed. 9:01:17 A ICD Implant . (Dual) 9:04:28 Floor called and notified of successful intervention. Spoke with Celestino 9:04:29 Bedside Report will be given. 9:04:37 Steri-strips and a sterile dressing applied to site. 9:04:38 Case End Final Sponge And Instrument Count Done by Elena Mendes, CERAMIC TILE MECHANIC TECH2. 9:04:49 Hypo's: 1, Sponges: 20, Bovie/scratch: bovie/scratch Sutures: 2, Blades: 1, Instruments: 26, Syveck Patches: 0 verified by HH 9:06:17 No case complications noted. 9:06:27 Cine recording checked. 9:09:53 Defibrillator and ground pads removed. Skin intact. Assessment: Final Case, HR=83 BPM, GOVU=815/74 mmhg, Edema=None, Color=Normal, Skin = Warm, Dr y Right Pulses: Skinny Ped=1 Left Pulses: Skinny Ped=1 9:18:00 Lower Right Extremities: Color=Normal Lower Left Extremities: Color=Normal Neurological: State=Drowsy, Ox3, DUGAN Respiration: Resp=14 B/min, SpO2=98 % 9:20:02 Implantable Device card placed in patient's chart. 9:20:03 [facility] moved to [facility] and transported to [facility] in stable condition independently chuy athing on R/A End Study - Contrast Media Used In Study Contrast Total Opened (mL) Total Used (mL) Total Wasted (mL) Unspecified 0 0 0 End Study - Maximum Contrast Load Max Contrast Load (mL) 287.5 End Study - Radiation Exposure Fluoro Time (minutes) 0.4 End Study - Patient Disposition Complications Transferred To Interventional Outcome No Telemetry Bed successful
[2017-05-11] MEDS ORDERED: SODIUM CHLORIDE 0.9% FLUSH 10 ML FLUSH IV FLUSH PRN (09:15)
[2017-05-11] MEDS ORDERED: ACETAMINOPHEN/CODEINE 300 MG/30 MG TAB PO PRN (09:15)
[2017-05-11] MEDS ORDERED: MIDAZOLAM HCL 2 MG/2 ML VIAL ONE (09:18)
--- NOTE | 2017-05-11 09:42 | MB ---
cc: STEVE FARI M.D., EDWARD M. MD [facility],DILIP Grant MD DATE OF CONSULTATION 05/08/2017 REASON FOR CONSULTATION Heart failure, biventricular pacer defibrillator end-of-life. HISTORY OF PRESENT ILLNESS Mr. Marquez is a 66-year-old gentleman with a history of high blood pressure, atrial fibrillation, congestive heart failure, hyperlipidemia, coronary artery disease, coronary bypass grafting, previous biventricular pacer defibrillator implanted with generator replacement 2012. Echocardiogram in March indicated ejection fraction around 20-25%. The biventricular pacer defibrillator is currently end-of-life. I was consulted for further evaluation and management. The gentleman was previously admitted due to uncompensated heart failure and COPD. The chart was reviewed. The patient was evaluated. ALLERGIES 1. FISH-CONTAINING PRODUCTS, 2. DULOXETINE. 3. TRAMADOL. 4. MRI PRECAUTIONS. 5. MAYONNAISE. SOCIAL HISTORY The gentleman quit smoking around 3 months ago. FAMILY HISTORY Noncontributory to his current medical condition. MEDICATIONS The gentleman during hospitalization was on: 1. Zithromax. 2. Lasix. 3. Aspirin. 4. Plavix. 5. Digoxin. 6. Neurontin. 7. Robaxin. 8. Aldactone. 9. Coreg. 10.Lipitor. REVIEW OF SYSTEMS Currently the patient refers no chest pain, no chest discomfort, some shortness of breath, no vomiting, no fever. PHYSICAL EXAMINATION GENERAL: Alert, fully oriented. VITAL SIGNS: Blood pressure at the time of evaluation was 127/77, pulse 72, respiratory 18 LUNGS: Ventilated. CARDIOVASCULAR: S1, S2, regular, no gallop. ABDOMEN: Soft. No mass. EXTREMITIES: No edema. ELECTROCARDIOGRAM AV pacing observed. LABORATORY Hemoglobin 16.5, white blood cell count 15.52. Potassium 4.2, creatinine 1.22. BNP 831. ASSESSMENT AND RECOMMENDATION Mr. Marquez's condition is stable and improved. No shortness of breath. White blood cell count is increased. Defibrillator end-of-life. The best approach is to continue on IV antibiotics and if no infection detected then the device will be replaced on Thursday morning. The risks, the nature and the benefit of the procedure were clearly stated to him. The risks include pneumothorax, cardiac perforation, stroke and even . He understood and agreed to proceed. MD EFRAIN Thomas /8:59 AM /9:15 AM
--- NOTE | 2017-05-11 09:44 | MP ---
cc: STEVE FAIR M.D. DATE OF SURGERY 05/11/2017 PROCEDURE PERFORMED Biventricular pacer defibrillator generator replacement. INDICATIONS Mr. Marquez is a 66-year-old gentleman with a history congestive heart failure, cardiomyopathy, coronary artery disease, ejection fracture 20-25%, biventricular pacer defibrillator end of life who will undergo generator replacement. The risks, the nature and the benefit of the procedure are clearly stated to him. The risks include pneumothorax, cardiac perforation, stroke, need for open heart surgery and even . The patient understood and agreed to proceed. PROCEDURE After written informed consent was obtained, the patient was brought to the EP lab where he was prepped and draped in the usual sterile fashion. Conscious sedation was initiated and maintained throughout the procedure by anesthesiologist. Once sedation verified, the left infraclavicular area was anesthetized with 2% Xylocaine. Using a #11 scalpel, a 3-cm incision was made over the existing generator. This incision was taken down to the deep fascial layer using Bovie cautery and blunt dissection. Once expose, the generator was removed from the pocket. Scar tissue was removed around the lead, pocket was expanded. Pocket revision was performed. Then the lead was disconnected from the patient with generator and tested. After adequate pacing and sensing thresholds were obtained, the pocket was copiously irrigated using antibiotic solution, the leads were connected to the new generator and placed into the pocket. I did proceed with wound closure. The deep fascial layer was approximated using 2-0 Vicryl suture in a continuous fashion. The subcutaneous layer was approximated using #2-0 Vicryl suture in a continuous fashion. The subcuticular layer was approximated using a 2-0 Vicryl suture in a continuous fashion. Dermabond adhesive was applied to the wound followed by sterile pressure dressing. There was no complication. The patient tolerated procedure. Blood loss minimal. EXPLANTED HARDWARE The explanted biventricular pacer defibrillator is a Medtronic serial number [id number]. IMPLANTED HARDWARE The implanted biventricular pacer defibrillator is a Medtronic model number [id number], serial number [id number]. THRESHOLD The right atrial pacing threshold in the bipolar mode was 0.75 volts at 0.5 milliseconds. Lead impedance 440 ohms, P-wave at 1.3 mV. The right ventricle pacing threshold in the bipolar mode was 1.25 volts at 0.5 milliseconds. Lead impedance 280 ohms, R-wave at 9.6 mV. The left ventricle pacing threshold in the bipolar mode was 1.2 volts at 0.5 milliseconds. Lead impedance 225 ohms. SETTING The device set in a DDD 60 upper rate limit 120 beats per minute. LV first by 40 milliseconds. Defibrillatory portion for two zones, one zone for ventricular tachycardia between 170-250 beats per minute. Initial therapy consists of one burst of ATP, one ramp, 81%, 10 pause, 70-second decremental followed by 20 then 25 and all subsequently shocks at 35 defibrillatory shocks. Second zone for ventricular fibrillation above 250 beats per minute first therapy at 25 and also subsequent shocks at 35 defibrillatory shocks. CONCLUSION Successful biventricular pacer defibrillator removal, biventricular pacer defibrillator replacement. COMMENT AND RECOMMENDATION The patient is going to be transferred to the telemetry unit. He will be observed and can be discharged home today whenever it is okay with the managing team. MD WILMER Thomas/UVALDO /8:55 AM /9:16 AM
[2017-05-11] MEDS ORDERED: DO NOT ADM ANY ANTICOAGULANT DRUGS PRN (11:00)
[2017-05-11] MEDS ORDERED: PHENYLEPH/NS 1000 MCG/10 ML SYR IV ONE (12:00)
[2017-05-11] MEDS ORDERED: ONDANSETRON HCL 4 MG/2 ML VIAL IV ONE (12:00)
[2017-05-11] MEDS ORDERED: PROPOFOL 200 MG/20 ML AMP IV ONE (12:00)
[2017-05-11] MEDS ORDERED: LIDOCAINE HCL 1% PF 5 ML SYRINGE OTHER ONE (12:00)
[2017-05-11] MEDS ORDERED: ROCURONIUM INJ 50 MG/5 ML SYRINGE IV PUSH ONE (12:00)
[2017-05-11] MEDS: ceFAZolin 2 GM PREMIX 50 ML IV SCH ×2 (16:07→23:03)
[2017-05-11] MEDS: ATORVASTATIN 80 MG TAB PO SCH (20:48)
[2017-05-11] MEDS: FUROSEMIDE 40 MG TAB PO SCH (20:49)
[2017-05-11] MEDS: ACETAMINOPHEN/CODEINE 300 MG/30 MG TAB PO PRN (20:50)
[2017-05-12] VITALS (11 sets, daily range): BP systolic 115–145; BP diastolic 57–67; PULSE 62–87; RESP 18–19; TEMP 98.2–98.8; O2SAT 95
[2017-05-12] MEDS: guaiFENesin E.R. 600 MG TAB PO SCH (08:05)
[2017-05-12] MEDS: ceFAZolin 2 GM PREMIX 50 ML IV SCH (08:05)
[2017-05-12] MEDS: METHOCARBAMOL 500 MG TAB PO SCH (08:05)
[2017-05-12] MEDS: BUDESONIDE-FORMOTEROL 160/4.5 MCG INHALER INH SCH (08:05)
[2017-05-12] MEDS: ASPIRIN EC 81 MG TABEC PO SCH (08:06)
[2017-05-12] MEDS: predniSONE 20 MG TAB PO SCH (08:06)
[2017-05-12] MEDS: SPIRONOLACTONE 25 MG TAB PO SCH (08:06)
[2017-05-12] MEDS: CLOPIDOGREL 75 MG TAB PO SCH (08:06)
[2017-05-12] MEDS: CARVEDILOL 6.25 MG TAB PO SCH (08:06)
[2017-05-12] MEDS: DIGOXIN 0.125 MG TAB PO SCH (08:06)
[2017-05-12] MEDS: GABAPENTIN 300 MG CAP PO SCH (08:06)
[2017-05-12] MEDS: FUROSEMIDE 80 MG TAB PO SCH (08:06)
[2017-05-12] MEDS: AZITHROMYCIN 250 MG TAB PO SCH (08:06)
[2017-05-12] MEDS: DOCUSATE SODIUM 50 MG/SENNA 8.6 MG TAB PO SCH (08:07)
[2017-05-12] MEDS: SODIUM CHLORIDE 0.9% FLUSH 10 ML FLUSH IV FLUSH SCH (08:07)
[2017-05-12] MEDS: ACETAMINOPHEN/CODEINE 300 MG/30 MG TAB PO PRN (08:07)
[2017-05-12] MEDS ORDERED: CARV6.25 PO (08:18)
[2017-05-12] MEDS ORDERED: CEFU1TAB20 PO (08:18)
[2017-05-12] MEDS ORDERED: AZIT250T3 PO (08:18)
[2017-05-12] MEDS ORDERED: PRED10PA PO (08:18)
--- NOTE | 2017-05-12 08:21 | HHI.DCPOC ---
Discharge Care Plan Diagnosis: (1) COPD exacerbation (2) CAD (coronary artery disease) (3) HTN (hypertension), benign (4) Acute on chronic systolic CHF (congestive heart failure) (5) Ischemic cardiomyopathy (6) Pacemaker at end of battery life Goals to Promote Your Health * To prevent worsening of your condition and complications * To maintain your health at the optimal level Directions to Meet Your Goals Take your medications as prescribed Follow your dietary instruction Follow activity as directed Keep your appointments as scheduled Take your immunizations and boosters as scheduled If your symptoms worsen call your PCP, if no PCP go to Urgent Care Center or Emergency Room Smoking is Dangerous to Your Health. Avoid second hand smoke Call the 24-hour hour crisis hotline for domestic abuse at Raymond Matute MD May 12, 2017 08:21
--- NOTE | 2017-05-12 08:21 | HHI.DS ---
Discharge Summary Admission Date May 03, 2017 at 15:14 Discharge Date: May 12, 2017 Admitting Diagnosis COPD EXACERBATION (1) COPD (chronic obstructive pulmonary disease) ICD Code: J44.9 - Chronic obstructive pulmonary disease Status: Acute (2) CHF (congestive heart failure) ICD Code: I50.9 - Heart failure, unspecified Status: Acute (3) HTN (hypertension), benign ICD Code: I10 - Benign hypertension Status: Acute (4) A-fib ICD Code: I48.91 - Unspecified atrial fibrillation Procedures Pacemaker battery replacement Brief History - From Admission History of present illness from the admitting physician This is a 66-year-old male with a PMH of HTN, A. fib, CHF (Echo 03/23/15 w/ EF 20-25%), COPD and Hyperlipidemia who presented to the ER w/ complaints of SOB. States symptoms started earlier today, associated w/ non-productive cough and congestion. Symptoms worse w/ exertion/ambulation, improved at rest. Moderate to severe. Denies fever, chills or chest pain. No sick contacts. H/o tobacco abuse, quit few months ago. On arrival, BP 120/73, HR 101, O2 sat 93% on RA, Temp 99.1. CBC essentially unremarkable. Chemistry unremarkable. BNP 235. CXR with no acute findings. S/p DuoNeb and Solu-Medrol w/ some improvement, however developed hypoxia w/ O2 90's while ambulating and significant dyspnea. CBC/BMP: 05/11/17 0553 05/09/17 1237 Significant Findings Laboratory Tests Test 05/09/17 12:37 05/10/17 04:55 05/11/17 05:53 White Blood Count 21.3 TH/MM3 (4.0-11.0) 17.6 TH/MM3 (4.0-11.0) 15.1 TH/MM3 (4.0-11.0) Hemoglobin 18.1 GM/DL (13.0-17.0) Hematocrit 52.9 % (39.0-51.0) Neutrophils (%) (Auto) 93.4 % (16.0-70.0) 91.8 % (16.0-70.0) Lymphocytes (%) (Auto) 3.1 % (9.0-44.0) 4.9 % (9.0-44.0) Neutrophils # (Auto) 19.9 TH/MM3 (1.8-7.7) 16.1 TH/MM3 (1.8-7.7) Lymphocytes # (Auto) 0.7 TH/MM3 (1.0-4.8) 0.9 TH/MM3 (1.0-4.8) Platelet Morphology Comment ENLARGED (NORMAL) Blood Urea Nitrogen 40 MG/DL (7-18) Random Glucose 157 MG/DL (74-106) Calcium Level 8.0 MG/DL (8.5-10.1) Magnesium Level 2.6 MG/DL (1.5-2.5) Sodium Level 133 MEQ/L (136-145) Chloride Level 95 MEQ/L (98-107) Estimat Glomerular Filtration Rate 63 ML/MIN (>89) B-Type Natriuretic Peptide 520 PG/ML (0-100) Mean Platelet Volume 11.2 FL (7.0-11.0) 11.1 FL (7.0-11.0) Imaging Last Impressions Chest X-Ray 05/09/17 0000 Signed Impressions: Service Date/Time: Tuesday, May 09, 2017 10:59 - CONCLUSION: No acute cardiopulmonary disease. Braden Castillo MD PE at Discharge GENERAL: This is a well-nourished, well-developed patient, in no apparent distress. CARDIOVASCULAR: Normal rate and regular rhythm without murmurs, gallops, or rubs. RESPIRATORY: Good respiratory efforts. Breath sounds equal and clear to auscultation bilaterally. GASTROINTESTINAL: Abdomen soft, non-tender, non-distended. Normal active bowel sounds MUSCULOSKELETAL: Extremities without cyanosis, or edema. NEURO: Alert & Oriented x4 to person, place, time, situation. Moves all ext x4 PSYCH: Appropriate mood and affect. Pt update on day of discharge Patient reports is feeling well. Some discomfort at the site of the pacemaker otherwise denies chest pressure or shortness of breath. Hospital Course 66 Y/O old male admitted secondary to COPD exacerbation and CHF exacerbation. The patient was admitted and treated with systemic steroids, antibiotics, and diuretics. He underwent pacemaker battery replacement. His symptoms significantly improved. Other conditions treated include: Hypertension Continue baseline treatment Atrial fibrillation Continue digoxin Continue home treatments Pt Condition on Discharge: Good Discharge Disposition: Disch w/ Home Health Serv Discharge Time: > 30 minutes Discharge Instructions DIET: Follow Instructions for: Heart Healthy Diet Activities you can perform: Regular-No Restrictions Follow up Referrals: Cardiology New Medications: Acetaminophen-Codeine (Tylenol-Codeine #3) 300-30 mg Tab 1 TAB PO Q4H PRN for PAIN, #15 TAB 0 Refills Cefuroxime (Cefuroxime) 500 Mg Tab 500 MG PO BID for Infection, #10 TAB 0 Refills Azithromycin (Azithromycin) 250 Mg Tab 250 MG PO DAILY, #3 TAB Prednisone (21) 10 mg tab Dose Pack (Prednisone (21) 10 mg tab Dose Pack) 10 Mg Pack 10 MG PO DIRECTED for Inflammation, #1 DSPK 0 Refills Changed Medications: Carvedilol (Coreg) 6.25 Mg Tab 6.25 MG PO BID, #60 TAB 0 Refills (Changed from: Carvedilol 6.25 Mg Tab 3.125 Mg PO BID #60 TAB Ref 0) Continued Medications: Aspirin DR (Aspirin 81) 81 Mg Tabdr 81 MG PO DAILY, TAB 0 Refills Atorvastatin (Atorvastatin) 80 Mg Tab 80 MG PO HS for Cholesterol Management, #30 TAB 0 Refills Clopidogrel (Clopidogrel) 75 Mg Tab 75 MG PO DAILY for Blood Clot Prevention, #30 TAB 0 Refills Digoxin (Digoxin) 0.125 Mg Tab 0.125 MG PO DAILY for Regulate Heart Beat, #30 TAB 0 Refills Furosemide (Furosemide) 80 Mg Tab 80 MG PO DAILY, #30 TAB 0 Refills Furosemide (Furosemide) 40 Mg Tab 40 MG PO HS, #60 TAB 0 Refills Gabapentin (Gabapentin) 600 Mg Tab 600 MG PO TID, #90 TAB 0 Refills Lorazepam (Lorazepam) 0.5 Mg Tab 0.5 MG PO TID PRN for ANXIETY, TAB 0 Refills Methocarbamol (Methocarbamol) 750 Mg Tab 1500 MG PO TID for Muscle Spasm, #120 TAB 0 Refills Nitroglycerin SL (Nitrostat SL) 0.4 Mg Subl 0.4 MG SL DIRECTED PRN for CHEST PAIN, #100 TAB.SL 0 Refills 1 tablet under the tongue as needed for chest pain. Repeat every 5 minutes for a total of 3 DOSES or call 911 if NO relief. Spironolactone (Spironolactone) 25 Mg Tab 25 MG PO DAILY, #30 TAB 0 Refills Raymond Matute MD May 12, 2017 08:21
--- NOTE | 2017-05-12 08:27 | HHI.FF ---
Face to Face Verification Diagnosis: (1) HTN (hypertension), benign (2) Acute on chronic systolic CHF (congestive heart failure) (3) Ischemic cardiomyopathy (4) Pacemaker at end of battery life (5) COPD exacerbation Home Health Nursing Order: Medical education Signs/symptoms of disease process CHF education Wound care and dressing changes Nursing assessment with vital signs I have seen patient Froylan Marquez on 05/12/17. My clinical findings support the need for the requested home health care services because: Med compliance is questionable Need for psychosocial assistance I certify that my clinical findings support that this patient is homebound because: Unsafe to leave home unassisted Need for psychosocial assistance Poor cardiac reserve Raymond Matute MD May 12, 2017 08:27
[2017-05-12] MEDS ORDERED: TYLETAB34 PO (08:57)
--- NOTE | 2017-05-12 15:44 | EKG ---
Date Performed: 05/11/2017 Time Performed: 12:25:36 PTAGE: 66 years EKG: Ventricular pacing Pacemaker rhythm - no further analysis Abnormal ECG PREVIOUS TRACING 01/16/2017 @ 21.07 Compared to prior tracing no significant change DOCTOR: David Wynne Interpretating Date/Time 05/12/2017 15:43:34
== END 2017-05-12 12:00 | disposition home health service (06) | DRG 245 ==
LOC: NEPC 17:02 → NEDA 19:09 → NEPFCDU 20:49 → OBSVTOIN 05-03 15:14 → N07A 05-03 17:12 → HCVI 05-07 16:51 → HCPC 05-08 18:35
PROVIDERS: ADMIT Family Medicine; ATTEND Family Medicine
PROC: 4B02XTZ Measurement of Cardiac Defibrillator, External Approach (ICD-10-PCS; 2017-05-08)
PROC: 0JPT0PZ Removal of Cardiac Rhythm Related Device from Trunk Subcutaneous Tissue and Fascia, Open Approach (ICD-10-PCS; 2017-05-11)
PROC: 0JH609Z Insertion of Cardiac Resynchronization Defibrillator Pulse Generator into Chest Subcutaneous Tissue and Fascia, Open Approach (ICD-10-PCS; principal; 2017-05-11 11:30)
DX: I11.0 Hypertensive heart disease with heart failure (principal); J96.21 Acute and chronic respiratory failure with hypoxia; I47.2 Ventricular tachycardia; J44.1 Chronic obstructive pulmonary disease with (acute) exacerbation; J44.0 Chronic obstructive pulmonary disease with (acute) lower respiratory infection; I50.23 Acute on chronic systolic (congestive) heart failure; I42.0 Dilated cardiomyopathy; E78.5 Hyperlipidemia, unspecified; J20.9 Acute bronchitis, unspecified; I48.2 Chronic atrial fibrillation; I25.5 Ischemic cardiomyopathy; I25.10 Atherosclerotic heart disease of native coronary artery without angina pectoris; N28.9 Disorder of kidney and ureter, unspecified; Z45.02 Encounter for adjustment and management of automatic implantable cardiac defibrillator; I25.2 Old myocardial infarction; Z91.013 Allergy to seafood; Z87.891 Personal history of nicotine dependence; Z95.810 Presence of automatic (implantable) cardiac defibrillator; Z95.1 Presence of aortocoronary bypass graft; T38.0X5A Adverse effect of glucocorticoids and synthetic analogues, initial encounter
CPT/HCPCS: 33263; 71010; 71045; 80048; 80053; 83735; 83880; 84100; 85007; 85025; 85027; 85610; 85730; 93005; 94618; 94640; 94664; 96374; 96376; C1721; G0378; J0690; J1200; J1650; J1940; J2250; J2370; J2405; J2920; J2930; J3010; J3370; J7512; J7626

== ENCOUNTER 2017-06-08 21:50 | Observation (INO) | payer MEDICARE, OTHER ==
[~2017-06-08] VITALS: Ht 175.3 cm; Wt 65.0 kg
[~2017-06-08 21:50] MED LIST changes: +AZIT250T3 PO; +CARV6.25 PO; -CARV6.252 PO; +CEFU1TAB20 PO; +PRED10PA PO; +TYLETAB34 PO
[2017-06-08 21:52] VITALS: BP 113/56; PULSE 83; RESP 16; TEMP 99; O2SAT 97
[2017-06-08] MEDS ORDERED: FLUO10TA PO (22:41)
[2017-06-08] MEDS ORDERED: BACL10TA PO (22:41)
[2017-06-08] MEDS ORDERED: SYMB160A INH (22:41)
[2017-06-08] MEDS ORDERED: LISI-519 PO (22:41)
--- NOTE | 2017-06-08 22:45 | PD ---
HPI Chief Complaint: Abnormal Results Time Seen by Provider: 22:31 Travel History International Travel<30 days: No Contact w/Intl Traveler<30days: No Traveled to known affect area: No History of Present Illness HPI 66y male with a history of CHF, A fib, COPD, PAD presents to the ED for concerns of low BP and lightheadedness that started about 8p today. Says he was concerned about his BP because of his symptoms and he checked his BP which was 88/51, 92/43. Says he called his [employer] nurse and she suggested he come to the ED for evaluation. Says he has a home blood pressure cuff that measures his arm. He has a [facility] nurse that visits him every morning s/p pacemaker placement. Says that he was in the hospital from late April to mid May and had a 15 pound weight loss. In addition, states that his last environmental health manager wanted to decrease his carvedilol however, this did not happen. He had his Medtronic PM/ ICD replaced [address] Vick. [facility] Past Medical History Hx Anticoagulant Therapy: Yes (on aspirin and Plavix) Anemia: Yes Arthritis: No Asthma: No Atrial Fibrillation: Yes Autoimmune Disease: No Blood Disorders: No Anxiety: Yes Depression: No Heart Rhythm Problems: Yes (AFIB) Cancer: No Cardiac Catheterization: Yes Cardiomyopathy: Yes Cardiovascular Problems: Yes (AICD) High Cholesterol: Yes Chemotherapy: No Chest Pain: Yes Congestive Heart Failure: Yes COPD: Yes Cerebrovascular Accident: Yes (TIA 1991) Coronary Artery Disease: Yes Diabetes: No Diminished Hearing: No Endocrine: No Gastrointestinal Disorders: No Genitourinary: No Hypertension: Yes Immune Disorder: No Implanted Vascular Access Dvce: Yes (PACER/DEFIBRILLATOR-MEDTRONIC) Musculoskeletal: No Neurologic: No Psychiatric: No Reproductive: No Respiratory: Yes Immunizations Current: No Myocardial Infarction: Yes Radiation Therapy: No Renal Failure: No Sleep Apnea: No Thyroid Disease: No Past Surgical History Abdominal Surgery: Yes AICD: Yes Body Medical Devices: pacemaker/defibrillator Cardiac Surgery: Yes (CABG 2006; pacemaker) Coronary Artery Bypass Graft: Yes Coronary Stent: Yes Oral Surgery: Yes Pacemaker: Yes Thoracic Surgery: Yes Tonsillectomy: Yes Other Surgery: Yes (CABG X4, AICD ) Family History Family Hypercholesterolemia: Yes Social History Alcohol Use: Yes (OCC) Tobacco Use: No Substance Use: No Allergies-Medications (Allergen,Severity, Reaction): Coded Allergies: Fish Containing Products (Verified Allergy, Severe, Anaphylaxis/HIVES, 06/08) Food Additives (Verified Allergy, Severe, ITCHING, 06/08/17) MAYONAISE duloxetine (Verified Allergy, Severe, Anaphylaxis, 06/08/17) tramadol (Verified Allergy, Severe, THROAT SWELLING, 06/08/17) MRI PRECAUTION (Verified Adverse Reaction, Severe, PATIENT HAS A PACEMAKER , 06/08/17) Reported Meds & Prescriptions Reported Meds & Active Scripts Active Coreg (Carvedilol) 6.25 Mg Tab 6.25 Mg PO BID Reported Fluoxetine (Fluoxetine HCl) 10 Mg Tab 10 Mg PO DAILY Symbicort Inh (Budesonide/Formoterol Fumarate) 160-4.5 Mcg/Act Aero 2 Puff INH Q12HR Baclofen 10 Mg Tab 10 Mg PO TID Lisinopril 5 Mg Tab 5 Mg PO DAILY Furosemide 40 Mg Tab 40 Mg PO HS Furosemide 80 Mg Tab 80 Mg PO DAILY Aspirin 81 (Aspirin) 81 Mg Tabdr 81 Mg PO DAILY Clopidogrel (Clopidogrel Bisulfate) 75 Mg Tab 75 Mg PO DAILY Nitrostat SL (Nitroglycerin) 0.4 Mg Subl 0.4 Mg SL DIRECTED PRN 1 tablet under the tongue as needed for chest pain. Repeat every 5 minutes for a total of 3 DOSES or call 911 if NO relief. Atorvastatin (Atorvastatin Calcium) 80 Mg Tab 80 Mg PO HS Gabapentin 600 Mg Tab 600 Mg PO TID Lorazepam 0.5 Mg Tab 0.5 Mg PO TID PRN Digoxin 0.125 Mg Tab 0.125 Mg PO DAILY Spironolactone 25 Mg Tab 25 Mg PO DAILY Review of Systems Except as stated in HPI: all other systems reviewed are Neg Physical Exam Narrative GENERAL: WD, WN in NAD, resting comfortably in bed. SKIN: Warm and dry. left chest wall, small hematoma inferior to PM, mildly tender. left abdomen ecchymosis, consistent with lovenox injections from previous admission HEAD: Atraumatic. Normocephalic. EYES: Pupils equal and round. No scleral icterus. No injection or drainage. ENT: No nasal bleeding or discharge. Mucous membranes pink and moist. NECK: Trachea midline. No JVD. no lymphadenopathy CARDIOVASCULAR: Regular rate and rhythm. RESPIRATORY: No accessory muscle use. Clear to auscultation. Breath sounds equal bilaterally. GASTROINTESTINAL: Abdomen soft, non-tender, nondistended. MUSCULOSKELETAL: Extremities without clubbing, cyanosis, or edema. No obvious deformities. NEUROLOGICAL: Awake and alert. No obvious cranial nerve deficits. Motor grossly within normal limits. Five out of 5 muscle strength in the arms and legs. Normal speech. PSYCHIATRIC: Appropriate mood and affect; insight and judgment normal. Data Data Last Documented VS Vital Signs Date Time Temp Pulse Resp B/P (MAP) Pulse Ox O2 Delivery O2 Flow Rate FiO2 06/08/17 23:09 16 96 06/08/17 23:07 Room Air 06/08/17 22:46 72 77 76 06/08/17 21:52 99.0 Orders Orders Electrocardiogram (06/08/17 22:49) B-Type Natriuretic Peptide (06/08/17 22:49) Ckmb (Isoenzyme) Profile (06/08/17 22:49) Complete Blood Count With Diff (06/08/17 22:49) Comprehensive Metabolic Panel (06/08/17 22:49) Magnesium (Mg) (06/08/17 22:49) Prothrombin Time / Inr (Pt) (06/08/17 22:49) Act Partial Throm Time (Ptt) (06/08/17 22:49) Troponin I (06/08/17 22:49) Chest, Single Ap (06/08/17 22:49) Ecg Monitoring (06/08/17 22:49) Bilateral Bp Monitoring (06/08/17 22:49) Iv Access Insert/Monitor (06/08/17 22:49) Oximetry (06/08/17 22:49) Oxygen Administration (06/08/17 22:49) Sodium Chloride 0.9% Flush (Ns Flush) (06/08/17 23:00) Digoxin (06/08/17 22:49) Labs Laboratory Tests Test 06/08/17 22:58 White Blood Count 9.4 TH/MM3 Red Blood Count 4.50 MIL/MM3 Hemoglobin 15.2 GM/DL Hematocrit 43.2 % Mean Corpuscular Volume 95.9 FL Mean Corpuscular Hemoglobin 33.8 PG Mean Corpuscular Hemoglobin Concent 35.3 % Red Cell Distribution Width 13.9 % Platelet Count 190 TH/MM3 Mean Platelet Volume 10.5 FL Neutrophils (%) (Auto) 72.3 % Lymphocytes (%) (Auto) 18.0 % Monocytes (%) (Auto) 7.8 % Eosinophils (%) (Auto) 1.2 % Basophils (%) (Auto) 0.7 % Neutrophils # (Auto) 6.8 TH/MM3 Lymphocytes # (Auto) 1.7 TH/MM3 Monocytes # (Auto) 0.7 TH/MM3 Eosinophils # (Auto) 0.1 TH/MM3 Basophils # (Auto) 0.1 TH/MM3 CBC Comment DIFF FINAL Differential Comment Prothrombin Time 10.7 SEC Prothromb Time International Ratio 1.1 RATIO Activated Partial Thromboplast Time 26.6 SEC MDM Medical Decision Making Medical Screen Exam Complete: Yes Emergency Medical Condition: Yes Differential Diagnosis orthostatic hypotension, hypotension secondary to medications, dehydration Narrative Course 66y male with a history of CHF, A fib, COPD, PAD presents to the ED for concerns of low BP and lightheadedness that started about 8p today. Says he was concerned about his BP and he checked his BP which was 88/51, 92/43. Says he called his [employer] nurse and she suggested he come to the ED for evaluation. Says he has a home blood pressure cuff that measures his arm. He has a [facility] nurse that visits him every morning s/p pacemaker placement. Says that he was in the hospital from late April to mid May and had a 15 pound weight loss. In addition, states that his last environmental health manager wanted to decrease his carvedilol however, this did not happen. He had his Medtronic PM/ ICD replaced [address] Vick. Says he has never had blood pressures this low, only 102 systolic. Vital signs- 113/56, HR 83, 97% RA Orthostatics 90/50 supine, 100/55 sitting, 96/56 standing Physical exam findings unremarkable. Please see Dr. Taylor note for further information and dispo. Condition: Stable Kim Cantu Jun 08, 2017 22:45
[2017-06-08 22:46] VITALS: BP_SYST 100; BP_SYST 90; BP_SYST 96; BP_DIAS 54; BP_DIAS 55; BP_DIAS 56; RESP 16
[2017-06-08] MEDS ORDERED: SODIUM CHLORIDE 0.9% FLUSH 10 ML FLUSH IVF PRN (23:00)
[2017-06-08 23:09] VITALS: RESP 16; O2SAT 96
[2017-06-08 23:15] LABS: AUTOMATED NEUTROPHIL # 6.8 TH/MM3 (1.8-7.7); BASOPHIL # 0.1 TH/MM3 (0-0.2); BASOPHIL % 0.7 % (0.0-2.0); EOSINOPHIL # 0.1 TH/MM3 (0-0.4); EOSINOPHIL % 1.2 % (0.0-4.0); HEMATOCRIT 43.2 % (39.0-51.0); HEMOGLOBIN 15.2 GM/DL (13.0-17.0); LYMPHOCYTE # 1.7 TH/MM3 (1.0-4.8); MEAN CELL VOLUME 95.9 FL (80.0-100.0); MEAN CORPUSCULAR HEMOGLOBIN 33.8 PG (27.0-34.0); MEAN CORPUSCULAR HGB CONC 35.3 % (32.0-36.0); MEAN PLATELET VOLUME 10.5 FL (7.0-11.0); MONO % 7.8 % (0.0-8.0); MONOCYTE # 0.7 TH/MM3 (0-0.9); NEUT % 72.3 % (16.0-70.0); PLATELET COUNT 190 TH/MM3 (150-450); RED CELL DISTRIBUTION WIDTH 13.9 % (11.6-17.2); WHITE BLOOD COUNT 9.4 TH/MM3 (4.0-11.0)
--- NOTE | 2017-06-08 23:18 | RADRPT ---
EXAM DATE/TIME: 06/08/2017 22:55 [facility] COMPARISON: CHEST SINGLE AP, May 09, 2017, 10:59. INDICATIONS : Chest pain- Possible lung infection. MEDICAL HISTORY : Hypercholesterolemia. Hypertension Myocardial infarction. COPD, AFIB, Emphysema, Cardiomyopathy, Coronary artery disease, Congestive heart failure, Lung infection. SURGICAL HISTORY : Coronary stent, Cardiac cath, Defibrillator, Pacemaker, CABG, Tonsillectomy. ENCOUNTER: Initial ACUITY: 1 day PAIN SCORE: 3/10 LOCATION: Bilateral chest FINDINGS: Portable AP view of the chest demonstrates a normal-sized cardiac silhouette in this patient post med jass sternotomy and CABG. Left chest wall cardiac pacing device/AICD is present. No effusion, consolid ation, or pneumothorax is identified. The bones and soft tissues demonstrate no acute finding. CONCLUSION: No acute cardiopulmonary abnormality is identified. Edin Nino MD on June 08, 2017 at 23:15 Board Certified Radiologist. This report was verified electronically.
[2017-06-08 23:27] LABS: INTERNATIONAL NORMALIZED RATIO 1.1 RATIO; PROTHROMBIN TIME - PATIENT 10.7 SEC (9.8-11.6)
[2017-06-08 23:54] LABS: ALBUMIN 3.3 GM/DL (3.4-5.0); ALKALINE PHOSPHATASE 97 U/L (45-117); ALT (GPT) 17 U/L (12-78); AST (GOT) 18 U/L (15-37); BICARBONATE 28.2 MEQ/L (21.0-32.0); BLOOD UREA NITROGEN 18 MG/DL (7-18); CHLORIDE 102 MEQ/L (98-107); CREATININE 1.02 MG/DL (0.60-1.30); DIGOXIN 0.5 NG/ML (0.8-2.0); GLOMERULAR FILTRATION RATE 74 ML/MIN (>89); GLUCOSE,RANDOM 105 MG/DL (74-106); MAGNESIUM 2.1 MG/DL (1.5-2.5); SODIUM (NA) 137 MEQ/L (136-145); TOTAL BILIRUBIN ADULT 0.4 MG/DL (0.2-1.0); TOTAL PROTEIN 6.4 GM/DL (6.4-8.2); TROPONIN I 0.02 NG/ML (0.02-0.05)
[2017-06-09] VITALS (12 sets, daily range): BP systolic 99–154; BP diastolic 53–66; PULSE 50–83; RESP 16–18; TEMP 97.6–98.8; O2SAT 94–98
[2017-06-09] MEDS ORDERED: METOCLOPRAMIDE HCL 10 MG TAB PO ONE (00:30)
--- NOTE | 2017-06-09 02:31 | RADRPT ---
EXAM DATE/TIME: 06/09/2017 02:19 [facility] COMPARISON: No previous studies available for comparison. INDICATIONS : Dizziness. RADIATION DOSE: 40.69 CTDIvol (mGy) MEDICAL HISTORY : Cerebrovascular disease. Cardiovascular disease Hypertension.COPD SURGICAL HISTORY : CABG Pacemaker.Coronary artery stent. ENCOUNTER: Initial ACUITY: 1 day PAIN SCALE: 0/10 LOCATION: cranial TECHNIQUE: Multiple contiguous axial images were obtained of the head. Using automated exposure control and adj ustment of the mA and/or kV according to patient size, radiation dose was kept as low as reasonably a chievable to obtain optimal diagnostic quality images. DICOM format image data is available electro nically for review and comparison. FINDINGS: CEREBRUM: The ventricles are normal. There is mild generalized atrophy. No evidence of midline shift, mass les ion, hemorrhage or acute infarction. No extra-axial fluid collections are seen. POSTERIOR FOSSA: The cerebellum and brainstem are intact. The 4th ventricle is midline. The cerebellopontine angle i s unremarkable. EXTRACRANIAL: Visualized sinuses are clear. SKULL: The calvaria is intact. No evidence of skull fracture. CONCLUSION: No acute intracranial abnormality is identified. Edin Nino MD on June 09, 2017 at 2:29 Board Certified Radiologist. This report was verified electronically.
[2017-06-09] MEDS ORDERED: GLUCAGON 1 MG/ML VIAL OTHER PRN (03:45)
[2017-06-09] MEDS ORDERED: DEXTROSE 50% IN WATER 50 ML VIAL(D50) IV PUSH PRN (03:45)
[2017-06-09] MEDS ORDERED: SODIUM CHLORIDE 0.9% FLUSH 10 ML FLUSH IV FLUSH PRN (03:45)
[2017-06-09] MEDS ORDERED: MECLIZINE HCL 25 MG TAB PO ONE (03:45)
[2017-06-09] MEDS ORDERED: RESP: ALBUTEROL 2.5 MG/IPRATROPIUM 0.5 MG NEB (PRN) NEB (04:00)
--- NOTE | 2017-06-09 05:07 | HHI.HP ---
HPI Service [facility] Primary Care Physician Red Horan MD Admission Diagnosis Dizziness/TIA Diagnoses: Travel History International Travel<30 Days: No Contact w/Intl Traveler <30 Da: No Traveled to Known Affected Are: No History of Present Illness 66-year-old male with a past medical history significant for CHF (last echo done in 03/23/15 showed an EF of 20-25%), COPD, atrial fibrillation anticoagulated on aspirin/Plavix and CAD presents to the emergency department for evaluation of hypotension. The patient reports he started feeling lightheaded after taking his nighttime medication. He took his blood pressure at home which was 90/40. He endorses dizziness and when he stands he feels as though he is spinning in a stationary room. He reports these symptoms are the same as when he was diagnosed with multiple TIAs in the s. 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 COPD Atrial fibrillation anticoagulated on aspirin/Plavix CAD Past Surgical History AICD placement CABG 4 Tonsillectomy Reported Medications Reported Meds & Active Scripts Active Coreg (Carvedilol) 6.25 Mg Tab 6.25 Mg PO BID Reported Fluoxetine (Fluoxetine HCl) 10 Mg Tab 10 Mg PO DAILY Symbicort Inh (Budesonide/Formoterol Fumarate) 160-4.5 Mcg/Act Aero 2 Puff INH Q12HR Baclofen 10 Mg Tab 10 Mg PO TID Lisinopril 5 Mg Tab 5 Mg PO DAILY Furosemide 40 Mg Tab 40 Mg PO HS Furosemide 80 Mg Tab 80 Mg PO DAILY Aspirin 81 (Aspirin) 81 Mg Tabdr 81 Mg PO DAILY Clopidogrel (Clopidogrel Bisulfate) 75 Mg Tab 75 Mg PO DAILY Nitrostat SL (Nitroglycerin) 0.4 Mg Subl 0.4 Mg SL DIRECTED PRN 1 tablet under the tongue as needed for chest pain. Repeat every 5 minutes for a total of 3 DOSES or call 911 if NO relief. Atorvastatin (Atorvastatin Calcium) 80 Mg Tab 80 Mg PO HS Gabapentin 600 Mg Tab 600 Mg PO TID Lorazepam 0.5 Mg Tab 0.5 Mg PO TID PRN Digoxin 0.125 Mg Tab 0.125 Mg PO DAILY Spironolactone 25 Mg Tab 25 Mg PO DAILY Allergies: Coded Allergies: Fish Containing Products (Verified Allergy, Severe, Anaphylaxis/HIVES, 06/08) Food Additives (Verified Allergy, Severe, ITCHING, 06/08/17) MAYONAISE duloxetine (Verified Allergy, Severe, Anaphylaxis, 06/08/17) tramadol (Verified Allergy, Severe, THROAT SWELLING, 06/08/17) MRI PRECAUTION (Verified Adverse Reaction, Severe, PATIENT HAS A PACEMAKER , 06/08/17) Family History Mother with CAD Social History Quit tobacco in February of last year. Occasional alcohol. Denies illicit drugs. Physical Exam Vital Signs Vital Signs Date Time Temp Pulse Resp B/P (MAP) Pulse Ox O2 Delivery O2 Flow Rate FiO2 06/09/17 04:37 67 16 99/60 (73) 96 Room Air 06/08/17 23:09 16 96 06/08/17 23:07 94 Room Air 06/08/17 22:46 72 16 90/54 (66) 77 16 100/55 (70) 76 16 96/56 (69) 06/08/17 21:52 99.0 83 16 113/56 (75) 97 Room Air Physical Exam GENERAL: male lying in bed SKIN: No rashes, ecchymoses or lesions. Cool and dry. HEAD: Atraumatic. Normocephalic. No temporal or scalp tenderness. EYES: Pupils equal round and reactive. Extraocular motions intact. No scleral icterus. No injection or drainage. ENT: Nose without bleeding, purulent drainage or septal hematoma. Throat without erythema, tonsillar hypertrophy or exudate. Uvula midline. Airway patent. NECK: Trachea midline. No JVD or lymphadenopathy. Supple, nontender, no meningeal signs. CARDIOVASCULAR: Regular rate and rhythm without murmurs, gallops, or rubs. RESPIRATORY: Clear to auscultation. Breath sounds equal bilaterally. No wheezes , rales, or rhonchi. GASTROINTESTINAL: Abdomen soft, non-tender, nondistended. No hepato-splenomegaly , or palpable masses. No guarding. MUSCULOSKELETAL: Extremities without clubbing, cyanosis, or edema. No joint tenderness, effusion, or edema noted. No calf tenderness. NEUROLOGICAL: Awake and alert. Cranial nerves II through XII intact. Motor and sensory grossly within normal limits. Five out of 5 muscle strength in all muscle groups. Normal speech. No nystagmus. Laboratory Laboratory Tests Test 06/08/17 22:58 White Blood Count 9.4 Red Blood Count 4.50 Hemoglobin 15.2 Hematocrit 43.2 Mean Corpuscular Volume 95.9 Mean Corpuscular Hemoglobin 33.8 Mean Corpuscular Hemoglobin Concent 35.3 Red Cell Distribution Width 13.9 Platelet Count 190 Mean Platelet Volume 10.5 Neutrophils (%) (Auto) 72.3 Lymphocytes (%) (Auto) 18.0 Monocytes (%) (Auto) 7.8 Eosinophils (%) (Auto) 1.2 Basophils (%) (Auto) 0.7 Neutrophils # (Auto) 6.8 Lymphocytes # (Auto) 1.7 Monocytes # (Auto) 0.7 Eosinophils # (Auto) 0.1 Basophils # (Auto) 0.1 CBC Comment DIFF FINAL Differential Comment Prothrombin Time 10.7 Prothromb Time International Ratio 1.1 Activated Partial Thromboplast Time 26.6 Blood Urea Nitrogen 18 Creatinine 1.02 Random Glucose 105 Total Protein 6.4 Albumin 3.3 Calcium Level 8.0 Magnesium Level 2.1 Alkaline Phosphatase 97 Aspartate Amino Transf (AST/SGOT) 18 Alanine Aminotransferase (ALT/SGPT) 17 Total Bilirubin 0.4 Sodium Level 137 Potassium Level 3.9 Chloride Level 102 Carbon Dioxide Level 28.2 Anion Gap 7 Estimat Glomerular Filtration Rate 74 Total Creatine Kinase 63 Troponin I 0.02 B-Type Natriuretic Peptide 324 Digoxin Level 0.5 Result Diagram: 06/08/17225706/08/172257 Caprini VTE Risk Assessment Caprini VTE Risk Assessment: Mod/High Risk (score >= 2) Caprini Risk Assessment Model Point Value = 1 Point Value = 2 Point Value = 3 Point Value = 5 Age 41-60 Minor surgery BMI > 25 kg/m2 Swollen legs Varicose veins or History of unexplained or recurrent spontaneous Oral contraceptives or hormone replacement Sepsis (< 1 month) Serious lung disease, including pneumonia (< 1 month) Abnormal pulmonary function Acute myocardial infarction Congestive heart failure (< 1 month) History of inflammatory bowel disease Medical patient at bed rest Age 61-74 Arthroscopic surgery Major open surgery (> 45 min) Laparoscopic surgery (> 45 min) Malignancy Confined to bed (> 72 hours) Immobilizing plaster cast Central venous access Age >= 75 History of VTE Family history of VTE Factor V Leiden Prothrombin [id number] Lupus anticoagulant Anticardiolipin antibodies Elevated serum homocysteine Heparin-induced thrombocytopenia Other congenital or acquired thrombophilia Stroke (< 1 month) Elective arthroplasty Hip, pelvis, or leg fracture Acute spinal cord injury (< 1 month) Prophylaxis Regimen Total Risk Factor Score Risk Level Prophylaxis Regimen 0-1 Low Early ambulation 2 Moderate Order ONE of the following: *Sequential Compression Device (SCD) *Heparin 5000 units SQ BID 3-4 Higher Order ONE of the following medications: *Heparin 5000 units SQ TID *Enoxaparin/Lovenox 40 mg SQ daily (WT < 150 kg, CrCl > 30 mL/min) *Enoxaparin/Lovenox 30 mg SQ daily (WT < 150 kg, CrCl > 10-29 mL/min) *Enoxaparin/Lovenox 30 mg SQ BID (WT < 150 kg, CrCl > 30 mL/min) AND/OR *Sequential Compression Device (SCD) 5 or more Highest Order ONE of the following medications: *Heparin 5000 units SQ TID (Preferred with Epidurals) *Enoxaparin/Lovenox 40 mg SQ daily (WT < 150 kg, CrCl > 30 mL/min) *Enoxaparin/Lovenox 30 mg SQ daily (WT < 150 kg, CrCl > 10-29 mL/min) *Enoxaparin/Lovenox 30 mg SQ BID (WT < 150 kg, CrCl > 30 mL/min) AND *Sequential Compression Device (SCD) Assessment and Plan Assessment and Plan Assessment/plan: 1. Vertigo/lightheadedness/history of TIA Unclear etiology Head CT negative for acute process Unable to obtain MRI secondary to AICD Echo/carotid ultrasound pending Trial of meclizine 2. CHF Continue home medications 3. COPD Continue Symbicort DuoNebs 4. Atrial fibrillation/CAD Rate controlled Continue aspirin/Plavix FEN Heart healthy diet Electrolytes: Monitor and replete when necessary Heparin Melba Gloria MD Jun 09, 2017 05:07
--- NOTE | 2017-06-09 05:13 | PD ---
Physical Exam Narrative Patient discussed with PAT Alvarez and signed out to me at end of shift for further evaluation and interpretation of patient's workup including laboratory examinations. Patient notes history of persistent and repeated hypotension at home, patient is noted to bleed on multiple cardiac medications as well as blood pressure medications. Patient was administered gentle IV fluids and oral rehydration here in ED, had improvement of his orthostatic symptoms and had subsequent negative orthostatic changes to vital signs as noted by Kori PORTILLO. Upon standing however the patient has persistent feeling of dizziness or unsteadiness. Patient recalls having similar symptoms prior with diagnosis TIA , at that time however patient had more profound symptoms and was able unable to stand. Upon subsequent multiple examinations, patient has a negative Romberg , negative Nalan-Byrani/Ras-Hallpike. Patient notes significant family were symptomatology upon standing, improved with lying down. No nystagmus. Considering patient's prior history of TIA with similar presentation, negative CT head, negative laboratory examinations, improvement orthostatic symptoms however no change in patient's sensation of dizziness and unsteadiness as noted above, case discussed with hospitalist service, care plan developed for neurology evaluation a.m., and carotid duplex Doppler examinations morning, as well as CTA brain. Data Data Last Documented VS Vital Signs Date Time Temp Pulse Resp B/P (MAP) Pulse Ox O2 Delivery O2 Flow Rate FiO2 06/09/17 04:37 67 16 99/60 (73) 96 Room Air 06/08/17 21:52 99.0 Orders Orders Electrocardiogram (06/08/17 22:49) B-Type Natriuretic Peptide (06/08/17 22:49) Ckmb (Isoenzyme) Profile (06/08/17 22:49) Complete Blood Count With Diff (06/08/17 22:49) Comprehensive Metabolic Panel (06/08/17 22:49) Magnesium (Mg) (06/08/17 22:49) Prothrombin Time / Inr (Pt) (06/08/17 22:49) Act Partial Throm Time (Ptt) (06/08/17 22:49) Troponin I (06/08/17 22:49) Chest, Single Ap (06/08/17 22:49) Ecg Monitoring (06/08/17 22:49) Bilateral Bp Monitoring (06/08/17 22:49) Iv Access Insert/Monitor (06/08/17 22:49) Oximetry (06/08/17 22:49) Oxygen Administration (06/08/17 22:49) Sodium Chloride 0.9% Flush (Ns Flush) (06/08/17 23:00) Digoxin (06/08/17 22:49) Metoclopramide (Reglan) (06/09/17 00:30) Ct Brain W/O Iv Contrast(Rout) (06/09/17 ) Meclizine (Antivert) (06/09/17 03:45) Meclizine (Antivert) (06/09/17 09:00) Atorvastatin (Lipitor) (06/09/17 21:00) Budeson-Formot 160-4.5 Mcg Inh (Symbicor (06/09/17 09:00) Carvedilol (Coreg) (06/09/17 09:00) Clopidogrel (Plavix) (06/09/17 09:00) Digoxin (Lanoxin) (06/09/17 09:00) Fluoxetine (Prozac) (06/09/17 09:00) Furosemide (Lasix) (06/09/17 21:00) Furosemide (Lasix) (06/09/17 09:00) Gabapentin (Neurontin) (06/09/17 09:00) Lisinopril (Prinivil) (06/09/17 09:00) Spironolactone (Aldactone) (06/09/17 09:00) Place In Observation (06/09/17 ) Vital Signs (Adult) Q2HX12,Q4H (06/09/17 03:45) Nih Stroke Scale - Nihss .Daily (06/09/17 03:45) Neuro Checks Q2HX12,Q4H (06/09/17 03:45) Notify Dr: Other (06/09/17 03:45) Pt Request For Service (06/09/17 03:45) Case Management Consult (06/09/17 ) Activity Oob Ad Haley (06/09/17 03:45) Nursing Bedside Swallow Assess .ONCE (06/09/17 03:45) Scd Bilateral/Knee High ANY.QSHIFT (06/09/17 03:45) Complete Blood Count With Diff (06/10/17 06:00) Hemoglobin (Hgb) A1c (06/09/17 03:45) Basic Metabolic Panel (Bmp) (06/10/17 06:00) Lipid Profile (06/10/17 06:00) Us Carotid Arteries Comp Bilat (06/09/17 ) Echo 2d Comp With Doppler (06/09/17 ) Sodium Chloride 0.9% Flush (Ns Flush) (06/09/17 09:00) Sodium Chloride 0.9% Flush (Ns Flush) (06/09/17 03:45) Aspirin (Aspirin) (06/09/17 09:00) Bedside Glucose ANY.CSUGAR (06/09/17 03:45) ^ Discontinue Insulin Orders (06/09/17 03:45) Insulin Aspart Supplemtl Scale (Novolog (06/09/17 08:00) Dextrose 50% In Ngoc (Vial) Inj (D50w (Vi (06/09/17 03:45) Glucagon Inj (Glucagon Inj) (06/09/17 03:45) Local Bulk Driver / Telemetry ANY.Q8H (06/09/17 03:45) Scd Bilateral/Knee High ANY.BID (06/09/17 03:45) Polo Bilateral/Knee High ANY.QSHIFT (06/09/17 03:45) Albuterol-Ipratropium Neb (Duoneb Neb) (06/09/17 04:00) Admit Order (Ed Use Only) (06/09/17 04:55) Labs Laboratory Tests Test 06/08/17 22:58 White Blood Count 9.4 TH/MM3 Red Blood Count 4.50 MIL/MM3 Hemoglobin 15.2 GM/DL Hematocrit 43.2 % Mean Corpuscular Volume 95.9 FL Mean Corpuscular Hemoglobin 33.8 PG Mean Corpuscular Hemoglobin Concent 35.3 % Red Cell Distribution Width 13.9 % Platelet Count 190 TH/MM3 Mean Platelet Volume 10.5 FL Neutrophils (%) (Auto) 72.3 % Lymphocytes (%) (Auto) 18.0 % Monocytes (%) (Auto) 7.8 % Eosinophils (%) (Auto) 1.2 % Basophils (%) (Auto) 0.7 % Neutrophils # (Auto) 6.8 TH/MM3 Lymphocytes # (Auto) 1.7 TH/MM3 Monocytes # (Auto) 0.7 TH/MM3 Eosinophils # (Auto) 0.1 TH/MM3 Basophils # (Auto) 0.1 TH/MM3 CBC Comment DIFF FINAL Differential Comment Prothrombin Time 10.7 SEC Prothromb Time International Ratio 1.1 RATIO Activated Partial Thromboplast Time 26.6 SEC Blood Urea Nitrogen 18 MG/DL Creatinine 1.02 MG/DL Random Glucose 105 MG/DL Total Protein 6.4 GM/DL Albumin 3.3 GM/DL Calcium Level 8.0 MG/DL Magnesium Level 2.1 MG/DL Alkaline Phosphatase 97 U/L Aspartate Amino Transf (AST/SGOT) 18 U/L Alanine Aminotransferase (ALT/SGPT) 17 U/L Total Bilirubin 0.4 MG/DL Sodium Level 137 MEQ/L Potassium Level 3.9 MEQ/L Chloride Level 102 MEQ/L Carbon Dioxide Level 28.2 MEQ/L Anion Gap 7 MEQ/L Estimat Glomerular Filtration Rate 74 ML/MIN Total Creatine Kinase 63 U/L Troponin I 0.02 NG/ML B-Type Natriuretic Peptide 324 PG/ML Digoxin Level 0.5 NG/ML [facility] Medical Record Reviewed: Yes Supervised Visit with ADENIKE: Yes Differential Diagnosis Dehydration, medication reaction, TIA Narrative Course see narrative above Diagnosis Primary Impression: Dizziness Admitting Information Admitting Physician Requests: Observation Condition: Stable Tavo Taylor MD Jun 09, 2017 05:12
[2017-06-09] MEDS: INSULIN ASPART SUPPLEMENTAL SCALE SQ SCH ×4 (08:00→21:00)
[2017-06-09] MEDS ORDERED: FUROSEMIDE 80 MG TAB PO SCH (09:00)
[2017-06-09] MEDS ORDERED: LISINOPRIL 5 MG TAB PO SCH (09:00)
--- NOTE | 2017-06-09 09:15 | RADRPT ---
EXAM DATE/TIME: 06/09/2017 08:23 [place] COMPARISON: No previous studies available for comparison. INDICATIONS : Transient ischemic attack. MEDICAL HISTORY : Myocardial infarction. Congestive heart failure. Hypercholesterolemia. TIA. Cardiomyopathy. Coronary artery disease. Afib. HTN. COPD. Emphysema. Dyspena. Anemia. Anxiety. Anticoagulant therapy, Aspirin & Plavix. SURGICAL HISTORY : Tonsillectomy. Pacemaker. Coronary artery stent. CABG. Cardiac cath. Blood transfusions. ENCOUNTER: Initial ACUITY: 1 day PAIN SCORE: 2/10 LOCATION: Bilateral neck PEAK SYSTOLIC VELOCITIES (cm/sec): ICA/CCA RATIO: Right: 1.6 Left: 1.2 ICA: Right: 127 Left: 114 CCA: Right: 81 Left: 97 ECA: Right: 92 Left: 121 VERTEBRAL: Right: 41 antegrade Left: 71 antegrade Elevated flow velocities and ICA/CCA ratios have been found to correlate with increased degrees of vessel stenosis, calculated as percentage of diameter relative to a normal segment of distal ICA/CCA FINDINGS: RIGHT CAROTID: No significant stenosis is visualized. The waveforms are within normal limits. LEFT CAROTID: No significant stenosis is visualized. The waveforms are within normal limits. VERTEBRAL ARTERIES: Antegrade flow is seen in both vertebral arteries. MISCELLANEOUS: None. CONCLUSION: No evidence of flow-limiting carotid stenosis. Edin Bradshaw MD on June 09, 2017 at 9:12 Board Certified Radiologist. This report was verified electronically.
--- NOTE | 2017-06-09 09:50 | HHI.PR ---
Subjective Remarks Follow up for lightheadedness, near syncope. The patient reports he never had any dizziness or any sensation of the room spinning. He states he mostly had lightheadedness and sensation of near syncope prior to arrival. Currently his symptoms have improved and he was able to ambulate to a bedside chair without difficulty. He denies any headache, visual changes, chest pain, shortness of breath, abdominal pain, nausea/vomiting/diarrhea, or leg swelling. He states his symptoms were similar to when he had TIAs back on the . He is also concerned that this may have something to do with his pacer/AICD since he had problems with this previously. He states he has 24hr pacing secondary to his afib. His waitstaff is Dr. Macario Rockwell although he has not seen him in the office yet. He believes he had a nuclear stress test in June 2016, does not recall any findings of ischemia but was told he has a weak valve. He does not recall his last echocardiogram although last echo on file from Mar 2015 showed EF 20-25%. The patient overall is feeling better and is hoping to go home at the end of the day. Objective Vitals Vital Signs Date Time Temp Pulse Resp B/P (MAP) Pulse Ox O2 Delivery O2 Flow Rate FiO2 06/09/17 08:55 98.1 66 18 110/64 (79) 97 06/09/17 07:54 97.9 65 16 109/59 (76) 97 06/09/17 04:37 67 16 99/60 (73) 96 Room Air 06/08/17 23:09 16 96 06/08/17 23:07 94 Room Air 06/08/17 22:46 72 16 90/54 (66) 77 16 100/55 (70) 76 16 96/56 (69) 06/08/17 21:52 99.0 83 16 113/56 (75) 97 Room Air I/O 06/08/17 06/08/17 06/08/17 06/09/17 06/09/17 06/09/17 07:00 15:00 23:00 07:00 15:00 23:00 Output Total 900 ml Balance -900 ml Output Urine Total 900 ml # Voids 2 Result Diagram: 06/08/17 22506/08/17 225 Imaging Last Impressions Head CT 06/09/17 0000 Signed Impressions: Service Date/Time: Friday, June 09, 2017 02:19 - CONCLUSION: No acute intracranial abnormality is identified. Edin Nino MD Chest X-Ray 06/08/17 5189 Signed Impressions: Service Date/Time: Thursday, June 08, 2017 22:55 - CONCLUSION: No acute cardiopulmonary abnormality is identified. Edin Nino MD Objective Remarks GENERAL: Well-nourished, well-developed pleasant male patient in [facility]. SKIN: Warm and dry. No rash. HEENT: Normocephalic. Atraumatic.Pupils equal and round. Mucous membranes pink and moist. No nystagmus noted. NECK: Supple. Trachea midline. CARDIOVASCULAR: Regular rate and rhythm. S1, S2 noted. No murmur appreciated. RESPIRATORY: No accessory muscle use. Clear to auscultation. Breath sounds equal bilaterally. GASTROINTESTINAL: Abdomen soft, non-tender, nondistended. Normoactive bowel sounds x4. MUSCULOSKELETAL: No obvious deformities. Extremities without clubbing, cyanosis , or edema. NEUROLOGICAL: Awake and alert. No obvious cranial nerve deficits. Motor grossly within normal limits. Normal speech. PSYCHIATRIC: Appropriate mood and affect; insight and judgment normal. Medications and IVs Current Medications Medications (Trade) Dose Ordered Sig/Margarita Route Start Time Stop Time Status Last Admin (Antivert) 25 mg Q8HR PO 06/09/17 09:00 (Lipitor) 80 mg HS PO 06/09/17 21:00 (Symbicort 160-4.5 Mcg Inh) 2 puff Q12HR INH 06/09/17 09:00 (Coreg) 6.25 mg BID PO 06/09/17 09:00 (Plavix) 75 mg DAILY PO 06/09/17 09:00 (Lanoxin) 0.125 mg DAILY PO 06/09/17 09:00 (PROzac) 10 mg DAILY PO 06/09/17 09:00 (Lasix) 40 mg HS PO 06/09/17 21:00 (Lasix) 80 mg DAILY PO 06/09/17 09:00 (Neurontin) 600 mg TID PO 06/09/17 09:00 (Prinivil) 5 mg DAILY PO 06/09/17 09:00 (Aldactone) 25 mg DAILY PO 06/09/17 09:00 (NS Flush) 2 ml BID IV FLUSH 06/09/17 09:00 (NS Flush) 2 ml UNSCH PRN IV FLUSH 06/09/17 03:45 (Aspirin) 325 mg DAILY PO 06/09/17 09:00 (NovoLOG SUPPLEMENTAL SCALE) 1 ACHS SQ 06/09/17 08:00 (D50w (Vial) Inj) 50 ml UNSCH PRN IV PUSH 06/09/17 03:45 (Glucagon Inj) 1 mg UNSCH PRN OTHER 06/09/17 03:45 (Duoneb Neb) 1 ampule Q4HR NEB PRN NEB 06/09/17 04:00 (Heparin Inj) 5,000 units Q12HR SQ 06/09/17 09:00 A/P Assessment and Plan 66-year-old male with a past medical history significant for CHF (last echo done in 03/23/15 showed an EF of 20-25%), COPD, atrial fibrillation anticoagulated on aspirin/Plavix and CAD presents to the emergency department for evaluation of hypotension. Lightheadedness/Near-Syncope: with history of TIA. Unclear etiology. Suspect hypotension secondary to multiple antihypertensives including coreg, lisinopril , spironolactone, lasix. -Head CT images reviewed, negative for acute process -Unable to obtain MRI secondary to AICD -Carotid U/S reviewed, no acute findings -Echo ordered and pending -Interrogate pacer/AICD with [employer] -Monitor on telemetry -Orthostatics negative -Restart home meds with hold parameters -Consult neurology CHF -Continue home medications however decrease lasix to 40mg bid secondary to hypotension -Continue coreg 6.25mg bid withhold parameters -Decreased lisinopril to 2.5mg daily COPD -Continue Symbicort -DuoNebs Atrial fibrillation/CAD -Rate controlled -Continue aspirin/Plavix and BB DVT Prophylaxis: Heparin sq Aimee Mendoza PA-C Jun 09, 2017 09:50
[2017-06-09] MEDS: BUDESONIDE-FORMOTEROL 160/4.5 MCG INHALER INH SCH ×2 (10:19→23:31)
[2017-06-09] MEDS: GABAPENTIN 300 MG CAP PO SCH ×3 (10:19→17:59)
[2017-06-09] MEDS: CLOPIDOGREL 75 MG TAB PO SCH (10:20)
[2017-06-09] MEDS: DIGOXIN 0.125 MG TAB PO SCH (10:20)
[2017-06-09] MEDS: FLUoxetine HCL 10 MG CAP PO SCH (10:20)
[2017-06-09] MEDS: CARVEDILOL 6.25 MG TAB PO SCH ×2 (10:21→23:32)
[2017-06-09] MEDS: ASPIRIN 325 MG TAB PO SCH (10:21)
[2017-06-09] MEDS: HEPARIN SODIUM - SQ 10,000 UNITS/ML VIAL SQ SCH ×2 (10:22→20:59)
[2017-06-09] MEDS: SODIUM CHLORIDE 0.9% FLUSH 10 ML FLUSH IV FLUSH SCH ×2 (10:23→23:31)
[2017-06-09] MEDS: MECLIZINE HCL 25 MG TAB PO SCH ×3 (10:23→23:31)
--- NOTE | 2017-06-09 13:26 | MB ---
cc: ANA BEVERLY M.D. DATE OF CONSULTATION: 06/09/2017 REASON FOR CONSULTATION: Froylan Marquez he is a 66-year-old seen in neurological consultation because of dizziness. The patient has A history of a recent pacemaker. Apparently history of atrial fibrillation as well. He has been having lightheadedness, dizziness upon standing up. This has happened on a few occasions and there is no vertigo, paresthesias, no double vision, no paresthesias. No headaches and he does not lose consciousness. The patient had a pacemaker placement on May 11 of this year and he describes some apparent problems with the pacemaker energy consumption. It appears that he has been on baby aspirin and Plavix. MEDICATIONS Also includes 1. Fluoxetine 2. Baclofen. 3. Lisinopril. 4. Lasix. 5. Nitrostat. 6. Atorvastatin 7. Gabapentin 600 mg three times a day 8. Digoxin 9. Lorazepam. 10. Spironolactone. He had some sort of TIAs in the 90's and he does not remember much about it. He has an apparent ejection fraction in the 20 - 25%. NEUROLOGIC EXAMINATION: IN GENERAL: The neurological exam is essentially normal at bedside. VITAL SIGNS: Documented blood pressure has been as low as 90/40. His reflexes were trace but present at the ankles and plantar responses were flexor. Pupils are equal and reactive and visual calvillo were full. He is well oriented. IMAGING STUDIES: Include carotid ultrasound showing no significant stenosis and CT head also showing no acute abnormality. Laboratory data reviewed. ASSESSMENT Lightheadedness exclusively upon standing up. This likely from a cardiovascular basis and he appears to remain symptomatic despite of hydration. He has a cardiac history with a recent pacemaker and atrial fibrillation. He follows with cardiology. No obvious TIA to explain his symptomatology. I will follow him as needed. Thank you for asking us to assist in his care. Ana Beverly MD [facility]/ /11:59 AM /12:11 PM
[2017-06-09] MEDS: SPIRONOLACTONE 25 MG TAB PO SCH (14:47)
--- NOTE | 2017-06-09 15:51 | EKG ---
Date Performed: 06/08/2017 Time Performed: 23:51:40 PTAGE: 66 years EKG: ELECTRONIC VENTRICULAR PACEMAKER ABNORMAL RHYTHM ECG Since the prior tracing, there has bee n no significant change PREVIOUS TRACING : 05/11/2017 12.25 DOCTOR: Allan Ybarra Interpretating Date/Time 06/09/2017 15:50:04
[2017-06-09 16:29] LABS: HEMOGLOBIN A1C 6.6 % (4.3-6.0)
[2017-06-09] MEDS: FUROSEMIDE 80 MG TAB PO SCH (17:58)
[2017-06-09] MEDS ORDERED: FUROSEMIDE 40 MG TAB PO SCH (21:00)
[2017-06-10] VITALS (11 sets, daily range): BP systolic 87–111; BP diastolic 51–64; PULSE 65–81; RESP 18; TEMP 97.9–98.5; O2SAT 94–98
[2017-06-10] MEDS: ATORVASTATIN 80 MG TAB PO SCH ×2 (00:17→21:40)
[2017-06-10] MEDS: MECLIZINE HCL 25 MG TAB PO SCH ×3 (06:23→21:39)
[2017-06-10] MEDS: INSULIN ASPART SUPPLEMENTAL SCALE SQ SCH ×4 (08:00→21:00)
[2017-06-10 08:23] LABS: AUTOMATED NEUTROPHIL # 6.1 TH/MM3 (1.8-7.7); BASOPHIL % 0.4 % (0.0-2.0); EOSINOPHIL # 0.1 TH/MM3 (0-0.4); EOSINOPHIL % 1.1 % (0.0-4.0); HEMOGLOBIN 15.8 GM/DL (13.0-17.0); LYMPH % 15.7 % (9.0-44.0); LYMPHOCYTE # 1.2 TH/MM3 (1.0-4.8); MEAN CELL VOLUME 96.7 FL (80.0-100.0); MEAN CORPUSCULAR HEMOGLOBIN 33.3 PG (27.0-34.0); MEAN CORPUSCULAR HGB CONC 34.4 % (32.0-36.0); MONO % 6.3 % (0.0-8.0); MONOCYTE # 0.5 TH/MM3 (0-0.9); NEUT % 76.5 % (16.0-70.0); PLATELET COUNT 192 TH/MM3 (150-450); RED BLOOD COUNT 4.75 MIL/MM3 (4.50-5.90); WHITE BLOOD COUNT 7.9 TH/MM3 (4.0-11.0)
[2017-06-10 08:49] LABS: BICARBONATE 30.1 MEQ/L (21.0-32.0); CALCIUM 8.6 MG/DL (8.5-10.1); CREATININE 0.94 MG/DL (0.60-1.30)
[2017-06-10 08:51] LABS: CHOLESTEROL/ HDL RATIO 2.31 RATIO; HDL CHOLESTEROL 34.6 MG/DL (40.0-60.0)
[2017-06-10] MEDS: HEPARIN SODIUM - SQ 10,000 UNITS/ML VIAL SQ SCH ×2 (09:00→21:00)
[2017-06-10] MEDS ORDERED: LISINOPRIL 5 MG TAB PO SCH (09:00)
--- NOTE | 2017-06-10 09:08 | HHI.PR ---
Subjective Remarks Follow up for lightheadedness, near syncope. The patient reports feeling better today. Denies any lightheadedness or dizziness. Blood pressure improving. He denies any other medical complaints including no chest pain, shortness of breath , or abdominal complaints. He was able to ambulate the hallway yesterday without difficulty. He is awaiting echocardiogram. Patient also reports he was supposed to be taking only Coreg 3.125mg that was adjusted by his medical records receptionist however his PCP recently made a mistake and prescribed his old dose of coreg. Patient also refusing heparin sq due to bruising from previous hospitalization. Objective Vitals Vital Signs Date Time Temp Pulse Resp B/P (MAP) Pulse Ox O2 Delivery O2 Flow Rate FiO2 06/10/17 08:27 66 06/10/17 08:15 98.4 67 18 109/62 (78) 97 06/10/17 04:59 98.1 68 18 107/62 (77) 96 06/10/17 04:45 76 06/10/17 01:34 97.9 75 18 100/59 (73) 96 06/10/17 00:43 65 06/09/17 23:17 70 114/62 (79) 97 06/09/17 21:09 102/55 (71) 06/09/17 19:52 98.0 67 18 101/53 (69) 95 06/09/17 16:41 98.8 77 18 104/58 (73) 96 06/09/17 15:45 68 06/09/17 14:12 97.6 70 16 113/57 (75) 98 06/09/17 11:46 98.3 83 16 110/59 (76) 95 I/O 06/09/17 06/09/17 06/09/17 06/10/17 06/10/17 06/10/17 07:00 15:00 23:00 07:00 15:00 23:00 Intake Total 500 ml Output Total 900 ml Balance -900 ml 500 ml Intake Oral 500 ml Output Urine Total 900 ml # Voids 2 3 1 Result Diagram: 06/10/17 0726 06/10/17 0726 Imaging Last Impressions Head CT 06/09/17 0000 Signed Impressions: Service Date/Time: Friday, June 09, 2017 02:19 - CONCLUSION: No acute intracranial abnormality is identified. Edin Nino MD Carotid Artery Ultrasound 06/09/17 0000 Signed Impressions: Service Date/Time: Friday, June 09, 2017 08:23 - CONCLUSION: No evidence of flow-limiting carotid stenosis. Edin Bradshaw MD Chest X-Ray 06/08/17 2249 Signed Impressions: Service Date/Time: Thursday, June 08, 2017 22:55 - CONCLUSION: No acute cardiopulmonary abnormality is identified. Edin Nino MD Objective Remarks GENERAL: Well-nourished, well-developed pleasant male patient in [facility]. SKIN: Warm and dry. No rash. HEENT: Normocephalic. Atraumatic.Pupils equal and round. Mucous membranes pink and moist. NECK: Supple. Trachea midline. CARDIOVASCULAR: Regular rate and rhythm. S1, S2 noted. No murmur appreciated. RESPIRATORY: No accessory muscle use. Clear to auscultation. Breath sounds equal bilaterally. GASTROINTESTINAL: Abdomen soft, non-tender, nondistended. Normoactive bowel sounds x4. MUSCULOSKELETAL: No obvious deformities. Extremities without clubbing, cyanosis , or edema. NEUROLOGICAL: Awake and alert. No obvious cranial nerve deficits. Motor grossly within normal limits. Normal speech. PSYCHIATRIC: Appropriate mood and affect; insight and judgment normal. Medications and IVs Current Medications Medications (Trade) Dose Ordered Sig/Margarita Route Start Time Stop Time Status Last Admin (Antivert) 25 mg Q8HR PO 06/09/17 09:00 06/10/17 06:23 (Lipitor) 80 mg HS PO 06/09/17 21:00 06/10/17 00:17 (Symbicort 160-4.5 Mcg Inh) 2 puff Q12HR INH 06/09/17 09:00 06/09/17 23:31 (Plavix) 75 mg DAILY PO 06/09/17 09:00 06/09/17 10:20 (Lanoxin) 0.125 mg DAILY PO 06/09/17 09:00 06/09/17 10:20 (PROzac) 10 mg DAILY PO 06/09/17 09:00 (Neurontin) 600 mg TID PO 06/09/17 09:00 06/09/17 17:59 (Aldactone) 25 mg DAILY PO 06/09/17 09:00 (NS Flush) 2 ml BID IV FLUSH 06/09/17 09:00 06/09/17 23:31 (NS Flush) 2 ml UNSCH PRN IV FLUSH 06/09/17 03:45 (Aspirin) 325 mg DAILY PO 06/09/17 09:00 06/09/17 10:21 (NovoLOG SUPPLEMENTAL SCALE) 1 ACHS SQ 06/09/17 08:00 (D50w (Vial) Inj) 50 ml UNSCH PRN IV PUSH 06/09/17 03:45 (Glucagon Inj) 1 mg UNSCH PRN OTHER 06/09/17 03:45 (Duoneb Neb) 1 ampule Q4HR NEB PRN NEB 06/09/17 04:00 (Heparin Inj) 5,000 units Q12HR SQ 06/09/17 09:00 (Lasix) 40 mg BID@0800,1800 PO 06/09/17 18:00 (Prinivil) 2.5 mg DAILY PO 06/10/17 09:00 (Coreg) 3.125 mg BID PO 06/10/17 09:00 A/P Assessment and Plan 66-year-old male with a past medical history significant for CHF (last echo done in 03/23/15 showed an EF of 20-25%), COPD, atrial fibrillation anticoagulated on aspirin/Plavix and CAD presents to the emergency department for evaluation of hypotension. Lightheadedness/Near-Syncope: with history of TIA. Suspect hypotension secondary to multiple antihypertensives including coreg, lisinopril, spironolactone, lasix. -Head CT images reviewed, negative for acute process -Unable to obtain MRI secondary to AICD -Carotid U/S reviewed, no acute findings -Echo ordered and pending -Interrogated pacer/AICD with [employer], no acute findings -Monitor on telemetry -Orthostatics negative -Decreased dosing of home medications including lasix, lisinopril, and coreg -Consult neurology, appreciate recommendations -PT consulted, no PT needed at discharge CHF -Continue home medications however decrease lasix to 40mg bid secondary to hypotension -Decreased coreg to 3.125mg bid with hold parameters -Decreased lisinopril to 2.5mg daily COPD -Continue Symbicort -DuoNebs Atrial fibrillation/CAD -Rate controlled -Continue aspirin/Plavix and BB DVT Prophylaxis: Heparin sq Discharge Planning 0900hrs: Likely discharge today if echo unremarkable and symptoms remain improved. Encouraged outpatient f/up betzaida with medical records receptionist Dr. Rockwell. Patient reports he has an appointment with Dr. Rockwell for October however instructed to call today to make appointment within 1-2 weeks. Aimee Mendoza PA-C Jun 10, 2017 9:08 am
[2017-06-10] MEDS: BUDESONIDE-FORMOTEROL 160/4.5 MCG INHALER INH SCH ×2 (09:43→21:38)
[2017-06-10] MEDS: SPIRONOLACTONE 25 MG TAB PO SCH (09:44)
[2017-06-10] MEDS: CARVEDILOL 3.125 MG TAB PO SCH ×2 (09:44→21:44)
[2017-06-10] MEDS: SODIUM CHLORIDE 0.9% FLUSH 10 ML FLUSH IV FLUSH SCH ×2 (09:44→21:38)
[2017-06-10] MEDS: ASPIRIN 325 MG TAB PO SCH (09:44)
[2017-06-10] MEDS: DIGOXIN 0.125 MG TAB PO SCH (09:45)
[2017-06-10] MEDS: GABAPENTIN 300 MG CAP PO SCH ×3 (09:45→18:16)
[2017-06-10] MEDS: CLOPIDOGREL 75 MG TAB PO SCH (09:45)
[2017-06-10] MEDS ORDERED: BENZOCAINE-MENTHOL (SUGAR FREE) 15 MG-3.6 MG LOZENGE BUCCAL PRN (09:45)
[2017-06-10] MEDS: FLUoxetine HCL 10 MG CAP PO SCH (09:46)
[2017-06-10] MEDS: FUROSEMIDE 80 MG TAB PO SCH ×2 (10:35→18:00)
[2017-06-10] MEDS ORDERED: CARV3.125 PO (15:43)
[2017-06-10] MEDS ORDERED: FURO80TA PO (15:43)
[2017-06-10] MEDS ORDERED: LISI-519 PO (15:43)
--- NOTE | 2017-06-10 15:45 | HHI.DCPOC ---
Discharge Care Plan Diagnosis: (1) Lightheadedness (2) Hypotension due to medication (3) History of CHF (congestive heart failure) (4) COPD (chronic obstructive pulmonary disease) (5) HTN (hypertension), benign (6) CAD (coronary artery disease) (7) Hyperlipidemia Goals to Promote Your Health * To prevent worsening of your condition and complications * To maintain your health at the optimal level Directions to Meet Your Goals Take your medications as prescribed Follow your dietary instruction Follow activity as directed Keep your appointments as scheduled Take your immunizations and boosters as scheduled If your symptoms worsen call your PCP, if no PCP go to Urgent Care Center or Emergency Room Smoking is Dangerous to Your Health. Avoid second hand smoke Call the 24-hour hour crisis hotline for domestic abuse at Aimee Mendoza PA-C Jun 10, 2017 15:45
--- NOTE | 2017-06-10 19:25 | ECHRPT ---
Indication: CVA/TIA CONCLUSIONS The left ventricular systolic function is severely reduced with an estimated ejection fraction in th e range of 20-25%. Mild concentric left ventricular hypertrophy. There is global left ventricular dysfunction. Mild mitral valve regurgitation. There is trace tricuspid valve regurgitation. Trivial pulmonary valve regurgitation. BP: 110 / 64 HR: 66 Rhythm: Technical Quality: FINDINGS LEFT VENTRICLE The left ventricular systolic function is severely reduced with an estimated ejection fraction in th e range of 20-25%. Mildly dilated left ventricle. Mild concentric left ventricular hypertrophy. There is global left ventricular dysfunction. RIGHT VENTRICLE Normal right ventricular size A pacemaker wire is noted in the RV. LEFT ATRIUM The left atrial size is mildly dilated. RIGHT ATRIUM The right atrial size is normal. ATRIAL SEPTUM Normal atrial septal thickness without atrial level shunting by limited color doppler interrogation. AORTA The aortic root and proximal ascending aorta are normal in size on limited imaging. MITRAL VALVE Structurally normal mitral valve. Mild mitral valve regurgitation. No mitral valve stenosis. AORTIC VALVE Trileaflet aortic valve. No aortic valve stenosis or regurgitation. TRICUSPID VALVE Structurally normal tricuspid valve. There is trace tricuspid valve regurgitation. The estimated pulmonary arterial pressure is 40 mmHg. PULMONARY VALVE Trivial pulmonary valve regurgitation. VESSELS The inferior vena cava is normal in size. PERICARDIUM No pericardial effusion. Taco Mistry DO (Electronically Signed) Final Date:10 June 2017 19:24
[2017-06-11 02:59] VITALS: BP 102/57; PULSE 64; RESP 18; TEMP 98.4; O2SAT 95
[2017-06-11] MEDS: MECLIZINE HCL 25 MG TAB PO SCH (06:38)
--- NOTE | 2017-06-11 08:36 | HHI.DS ---
cc: Macario Rockwell MD Discharge Summary Admission Date Jun 09, 2017 at 04:56 Discharge Date: Jun 11, 2017 Admitting Diagnosis Dizziness/TIA (1) Hypotension due to medication ICD Code: I95.2 - Hypotension due to drugs (2) Lightheadedness ICD Code: R42 - Dizziness and giddiness (3) History of CHF (congestive heart failure) ICD Code: Z86.79 - Personal history of other diseases of the circulatory system Status: Acute (4) CAD (coronary artery disease) ICD Code: I25.10 - Coronary artery disease Status: Acute Procedures None. Brief History - From Admission 66-year-old male with a past medical history significant for CHF (last echo done in 03/23/15 showed an EF of 20-25%), COPD, atrial fibrillation anticoagulated on aspirin/Plavix and CAD presents to the emergency department for evaluation of hypotension. The patient reports he started feeling lightheaded after taking his nighttime medication. He took his blood pressure at home which was 90/40. He endorses dizziness and when he stands he feels as though he is spinning in a stationary room. He reports these symptoms are the same as when he was diagnosed with multiple TIAs in the 90s. CBC/BMP: 06/10/17 0726 06/10/17 0726 Significant Findings Laboratory Tests Test 06/08/17 22:58 06/10/17 07:26 Neutrophils (%) (Auto) 72.3 % (16.0-70.0) 76.5 % (16.0-70.0) Albumin 3.3 GM/DL (3.4-5.0) Calcium Level 8.0 MG/DL (8.5-10.1) Estimat Glomerular Filtration Rate 74 ML/MIN (>89) 81 ML/MIN (>89) Hemoglobin A1c 6.6 % (4.3-6.0) B-Type Natriuretic Peptide 324 PG/ML (0-100) Digoxin Level 0.5 NG/ML (0.8-2.0) Random Glucose 115 MG/DL (74-106) Cholesterol Level 80 MG/DL (120-200) HDL Cholesterol 34.6 MG/DL (40.0-60.0) Imaging Last Impressions Head CT 06/09/17 0000 Signed Impressions: Service Date/Time: Friday, June 09, 2017 02:19 - CONCLUSION: No acute intracranial abnormality is identified. Edin Nino MD Carotid Artery Ultrasound 06/09/17 0000 Signed Impressions: Service Date/Time: Friday, June 09, 2017 08:23 - CONCLUSION: No evidence of flow-limiting carotid stenosis. Edin Bradshaw MD Chest X-Ray 06/08/17 2249 Signed Impressions: Service Date/Time: Thursday, June 08, 2017 22:55 - CONCLUSION: No acute cardiopulmonary abnormality is identified. Edin Nino MD PE at Discharge GENERAL: Well-nourished, well-developed pleasant male patient in [facility]. SKIN: Warm and dry. No rash. HEENT: Normocephalic. Atraumatic.Pupils equal and round. Mucous membranes pink and moist. NECK: Supple. Trachea midline. CARDIOVASCULAR: Regular rate and rhythm. S1, S2 noted. No murmur appreciated. RESPIRATORY: No accessory muscle use. Clear to auscultation. Breath sounds equal bilaterally. GASTROINTESTINAL: Abdomen soft, non-tender, nondistended. Normoactive bowel sounds x4. MUSCULOSKELETAL: No obvious deformities. Extremities without clubbing, cyanosis , or edema. NEUROLOGICAL: Awake and alert. No obvious cranial nerve deficits. Motor grossly within normal limits. Normal speech. PSYCHIATRIC: Appropriate mood and affect; insight and judgment normal. Pt update on day of discharge Follow up for lightheadedness. The patient reports feeling much improved. Denies any further lightheadedness or dizziness. He has been able to ambulate without difficulty. Denies any chest pain, palpitations, or shortness of breath. He has no other medical complaints at this time. He wants to go home. Discussed results of echo, stable compared to 2015. Hospital Course 66-year-old male with a past medical history significant for CHF (last echo done in 03/23/15 showed an EF of 20-25%), COPD, atrial fibrillation anticoagulated on aspirin/Plavix and CAD presents to the emergency department for evaluation of hypotension. Lightheadedness/Near-Syncope: with history of TIA. Suspect hypotension secondary to multiple antihypertensives including coreg, lisinopril, spironolactone, lasix. Head CT images reviewed and unremarkable. Unable to obtain MRI secondary to AICD. Carotid U/S reviewed, no acute findings. Echo with EF 20-25%, stable compared to previous echo from 2015). Interrogated pacer/ AICD with Admeld, no acute findings. Monitor on telemetry. Orthostatics negative. -Decreased dosing of home medications including lasix, lisinopril, and coreg. Consult neurology as patient was concerned this was TIA/CVA, appreciate recommendations, suspected cardiovascular related and unlikely TIA/ CVA. PT consulted, no PT needed at discharge. Patient symptoms much improved after decreasing medication dosing. Stable for discharge. Strongly encouraged follow up with piping blocker [facility] after discharge. Patient also instructed to check morning blood pressure prior to taking medications (he has a machine at home), and if SBP < 110, to skip Lasix dosing. Patient verbalized understanding. CHF: Continue home medications however decrease lasix to 40mg bid secondary to hypotension. Decreased coreg to 3.125mg bid with hold parameters. Decreased lisinopril to 2.5mg daily. Does not appear to be in any fluid overload, stable. COPD:Chronic, stable. Continue Symbicort. DuoNebs. Atrial fibrillation/CAD: Rate controlled. Continue aspirin/Plavix and BB. Pt Condition on Discharge: Stable Discharge Disposition: Discharge Home Discharge Time: > 30 minutes Discharge Instructions DIET: Follow Instructions for: Heart Healthy Diet, Low Sodium Diet Activities you can perform: Regular-No Restrictions Follow up Referrals: Cardiology - 1 Week with Macario Rockwell MD PCP Follow-up - 2-3 Days with Red Horan MD New Medications: Carvedilol (Coreg) 3.125 Mg Tab 3.125 MG PO BID for Regulate Heart Beat, #60 TAB Furosemide (Furosemide) 80 Mg Tab 40 MG PO BID@0800,1800 for CHF, #60 TAB Lisinopril (Lisinopril) 5 Mg Tab 2.5 MG PO DAILY for Blood Pressure Management, #30 TAB Continued Medications: Aspirin DR (Aspirin 81) 81 Mg Tabdr 81 MG PO DAILY, TAB 0 Refills Atorvastatin (Atorvastatin) 80 Mg Tab 80 MG PO HS for Cholesterol Management, #30 TAB 0 Refills Budesonide-Formoterol Inh (Symbicort Inh) 160-4.5 Mcg/Act Aero 2 PUFF INH Q12HR, #1 INHALER 0 Refills Clopidogrel (Clopidogrel) 75 Mg Tab 75 MG PO DAILY for Blood Clot Prevention, #30 TAB 0 Refills Digoxin (Digoxin) 0.125 Mg Tab 0.125 MG PO DAILY for Regulate Heart Beat, #30 TAB 0 Refills Fluoxetine (Fluoxetine) 10 Mg Tab 10 MG PO DAILY, #30 TAB 0 Refills Gabapentin (Gabapentin) 600 Mg Tab 600 MG PO TID, #90 TAB 0 Refills Lorazepam (Lorazepam) 0.5 Mg Tab 0.5 MG PO TID PRN for ANXIETY, TAB 0 Refills Nitroglycerin SL (Nitrostat SL) 0.4 Mg Subl 0.4 MG SL DIRECTED PRN for CHEST PAIN, #100 TAB.SL 0 Refills 1 tablet under the tongue as needed for chest pain. Repeat every 5 minutes for a total of 3 DOSES or call 911 if NO relief. Spironolactone (Spironolactone) 25 Mg Tab 25 MG PO DAILY, #30 TAB 0 Refills Discontinued Medications: Baclofen (Baclofen) 10 Mg Tab 10 MG PO TID for Muscle Spasm, TAB 0 Refills Carvedilol (Coreg) 6.25 Mg Tab 6.25 MG PO BID, #60 TAB 0 Refills Furosemide (Furosemide) 80 Mg Tab 80 MG PO DAILY, #30 TAB 0 Refills Furosemide (Furosemide) 40 Mg Tab 40 MG PO HS, #60 TAB 0 Refills Lisinopril (Lisinopril) 5 Mg Tab 5 MG PO DAILY for Blood Pressure Management, #30 TAB 0 Refills Aimee Mendoza PA-C Jun 11, 2017 08:36
== END 2017-06-11 10:09 | disposition home or self-care (01) ==
LOC: NEPC 21:50 → NEDA 06-09 04:56 → NEPHCDU 06-09 06:04
PROVIDERS: ADMIT Family Medicine; ATTEND Family Medicine
DX: I95.2 Hypotension due to drugs (principal); I11.0 Hypertensive heart disease with heart failure; I50.9 Heart failure, unspecified; I25.10 Atherosclerotic heart disease of native coronary artery without angina pectoris; I25.2 Old myocardial infarction; R94.31 Abnormal electrocardiogram [ECG] [EKG]; E78.5 Hyperlipidemia, unspecified; I48.91 Unspecified atrial fibrillation; J44.9 Chronic obstructive pulmonary disease, unspecified; Z79.82 Long term (current) use of aspirin; Z79.02 Long term (current) use of antithrombotics/antiplatelets; Z86.73 Personal history of transient ischemic attack (TIA), and cerebral infarction without residual deficits; Z87.891 Personal history of nicotine dependence; Z95.0 Presence of cardiac pacemaker; Z95.1 Presence of aortocoronary bypass graft; Z95.5 Presence of coronary angioplasty implant and graft; E78.00 Pure hypercholesterolemia, unspecified
CPT/HCPCS: 70450; 71045; 80048; 80053; 80061; 80162; 82550; 82948; 83036; 83735; 83880; 84484; 85025; 85610; 85730; 93005; 93306; 93880; 97110; 97116; 97161; 99285; G0378; G8987; G8988

== ENCOUNTER 2017-10-01 23:24 | Observation (INO) | payer OTHER ==
[~2017-10-01] VITALS: Ht 175.3 cm; Wt 67.1 kg
[~2017-10-01 23:24] MED LIST changes: -AZIT250T3 PO; +CARV3.125 PO; -CARV6.25 PO; -CEFU1TAB20 PO; +FLUO10TA PO; -FURO40TA PO; +LISI-519 PO; -METH750T PO; -PRED10PA PO; +SYMB160A INH; -TYLETAB34 PO
[2017-10-01 23:30] VITALS: BP 112/68; PULSE 90; RESP 18; O2SAT 95
[2017-10-01] MEDS ORDERED: SODIUM CHLORIDE 0.9% FLUSH 10 ML FLUSH IVF PRN (23:45)
[2017-10-01 23:46] VITALS: PULSE 92; RESP 18; TEMP 98.3; O2SAT 95
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
[2017-10-02] VITALS (14 sets, daily range): BP systolic 98–115; BP diastolic 59–72; PULSE 63–80; RESP 16–18; TEMP 98.1–98.3; O2SAT 94–98
[2017-10-02 00:08] LABS: AUTOMATED NEUTROPHIL # 6.9 TH/MM3 (1.8-7.7); BASOPHIL # 0.1 TH/MM3 (0-0.2); BASOPHIL % 0.6 % (0.0-2.0); EOSINOPHIL # 0.1 TH/MM3 (0-0.4); EOSINOPHIL % 1.5 % (0.0-4.0); HEMATOCRIT 45.3 % (39.0-51.0); HEMOGLOBIN 15.6 GM/DL (13.0-17.0); LYMPH % 16.2 % (9.0-44.0); LYMPHOCYTE # 1.5 TH/MM3 (1.0-4.8); MEAN CELL VOLUME 94.6 FL (80.0-100.0); MEAN CORPUSCULAR HEMOGLOBIN 32.6 PG (27.0-34.0); MEAN CORPUSCULAR HGB CONC 34.4 % (32.0-36.0); MEAN PLATELET VOLUME 10.4 FL (7.0-11.0); MONO % 8.2 % (0.0-8.0); MONOCYTE # 0.8 TH/MM3 (0-0.9); NEUT % 73.5 % (16.0-70.0); PLATELET COUNT 206 TH/MM3 (150-450); RED BLOOD COUNT 4.78 MIL/MM3 (4.50-5.90); RED CELL DISTRIBUTION WIDTH 12.8 % (11.6-17.2); WHITE BLOOD COUNT 9.4 TH/MM3 (4.0-11.0)
--- NOTE | 2017-10-02 00:09 | RADRPT ---
EXAM DATE: 10/02/2017 12:00 AM EDT AGE/SEX: 67 years / Male INDICATIONS: Chest pain status post defibrillator shock. CLINICAL DATA: This is the patient's initial encounter. Patient reports that signs and symptoms have been present for 1 day and indicates a pain score of 2/10. MEDICAL/SURGICAL HISTORY: . Hypercholesterolemia. Hypertension Myocardial infarction. COPD, ANTWAN B, Emphysema, Cardiomyopathy, Coronary artery disease, Congestive heart failure, Lung infection. . C oronary stent, Cardiac cath, Defibrillator, Pacemaker, CABG, Tonsillectomy. COMPARISON: No prior exams available for comparison. FINDINGS: Mild cardiomegaly. Pacer leads in right atrium and right ventricle. Minimal interstitial changes may represent minimal interstitial edema. No consolidation or significant effusion. No pneumothorax. CONCLUSION: Cardiomegaly with minimal interstitial edema. Pacer leads in right atrium and right ventricle and ove rlying left ventricular margin externally. Electronically signed by: Sean Grimm MD 10/02/2017 12:08 AM EDT
[2017-10-02 00:14] LABS: INTERNATIONAL NORMALIZED RATIO 1.2 RATIO
[2017-10-02 00:25] LABS: ALBUMIN 3.6 GM/DL (3.4-5.0); AST (GOT) 17 U/L (15-37); BICARBONATE 24.8 MEQ/L (21.0-32.0); BLOOD UREA NITROGEN 13 MG/DL (7-18); CALCIUM 8.1 MG/DL (8.5-10.1); CHLORIDE 103 MEQ/L (98-107); CREATININE 1.23 MG/DL (0.60-1.30); GLOMERULAR FILTRATION RATE 59 ML/MIN (>89); GLUCOSE,RANDOM 109 MG/DL (74-106); MAGNESIUM 1.9 MG/DL (1.5-2.5); SODIUM (NA) 138 MEQ/L (136-145)
[2017-10-02 00:26] LABS: ALT (GPT) 17 U/L (12-78)
[2017-10-02 00:30] LABS: ALKALINE PHOSPHATASE 92 U/L (45-117); TOTAL BILIRUBIN ADULT 0.8 MG/DL (0.2-1.0); TOTAL PROTEIN 6.6 GM/DL (6.4-8.2); TROPONIN I 0.02 NG/ML (0.02-0.05)
[2017-10-02] MEDS ORDERED: IOHEXOL 350 MG/ML 100 ML BTL (for Cath Lab) OTHER ONE (02:41)
[2017-10-02] MEDS ORDERED: MAGNESIUM HYDROXIDE SUSP 30 ML CUP PO PRN (03:15)
[2017-10-02] MEDS ORDERED: NALOXONE HCL 0.4 MG/ML AMP IV PUSH PRN (03:15)
[2017-10-02] MEDS ORDERED: ACETAMINOPHEN 325 MG TAB PO PRN (03:15)
[2017-10-02] MEDS ORDERED: SENNOSIDES 8.6 MG TAB PO PRN (03:15)
[2017-10-02] MEDS ORDERED: LACTULOSE SYRUP 20 GM/30 ML CUP PO PRN (03:15)
[2017-10-02] MEDS ORDERED: BISACODYL 10 MG SUPP RECTAL PRN (03:15)
[2017-10-02] MEDS ORDERED: SODIUM CHLORIDE 0.9% FLUSH 10 ML FLUSH IV FLUSH PRN ×2 (03:15→10:00)
[2017-10-02] MEDS ORDERED: LORazepam 0.5 MG TAB PO PRN (03:15)
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
[2017-10-02] MEDS ORDERED: ONDANSETRON ODT 4 MG TAB PO PRN (03:30)
[2017-10-02] MEDS: MENTHOL LOZENGE BUCCAL PRN ×2 (05:40→22:02)
[2017-10-02] MEDS ORDERED: HEPARIN SODIUM - SQ 10,000 UNITS/ML VIAL SQ SCH (06:00)
[2017-10-02] MEDS ORDERED: SODIUM CHLOR 0.9% 1000 ML INJ 1,000 ML IV SCH ×2 (07:38→09:57)
[2017-10-02] MEDS ORDERED: ASPIRIN 325 MG TAB PO SCH (07:45)
[2017-10-02] MEDS ORDERED: DIAZEPAM 5 MG TAB PO SCH (07:45)
[2017-10-02] MEDS ORDERED: diphenhydrAMINE HCL 50 MG CAP PO SCH (07:45)
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
[2017-10-02] MEDS: CLOPIDOGREL 75 MG TAB PO SCH (08:21)
[2017-10-02] MEDS: BUDESONIDE-FORMOTEROL 160/4.5 MCG INHALER INH SCH ×2 (08:21→20:43)
[2017-10-02] MEDS: LISINOPRIL 5 MG TAB PO SCH (08:21)
[2017-10-02] MEDS: DOCUSATE SODIUM 50 MG/SENNA 8.6 MG TAB PO SCH ×2 (08:22→20:41)
[2017-10-02] MEDS: GABAPENTIN 300 MG CAP PO SCH ×2 (08:22→20:39)
[2017-10-02] MEDS: FUROSEMIDE 40 MG TAB PO SCH ×2 (08:22→16:53)
[2017-10-02] MEDS: SPIRONOLACTONE 25 MG TAB PO SCH (08:23)
[2017-10-02] MEDS: SODIUM CHLORIDE 0.9% FLUSH 10 ML FLUSH IV FLUSH SCH ×2 (08:23→20:44)
[2017-10-02] MEDS: DIGOXIN 0.125 MG TAB PO SCH (08:24)
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
[2017-10-02] MEDS ORDERED: HEPARIN-NS/PF INJ 1,500 ML ONE (08:41)
[2017-10-02] MEDS ORDERED: MIDAZOLAM HCL 2 MG/2 ML VIAL ONE (08:41)
[2017-10-02] MEDS ORDERED: CARVEDILOL 3.125 MG TAB PO SCH (09:00)
[2017-10-02] MEDS: ASPIRIN EC 81 MG TABEC PO SCH (09:00)
[2017-10-02] MEDS ORDERED: METOCLOPRAMIDE HCL 10 MG/2 ML VIAL IV PUSH PRN (10:00)
[2017-10-02] MEDS ORDERED: BACITRACIN OINT 0.9 GM PKT TOP ONE (10:00)
[2017-10-02] MEDS ORDERED: MISC INFORMATION XX ONE (10:00)
[2017-10-02] MEDS ORDERED: PILL SPLITTER OTHER PRN (10:15)
--- NOTE | 2017-10-02 10:15 | CATHPROC ---
Sup[facility]ic HIS Report Study Information Study Number Admission Scheduled Start Study Start [id number] Oct 02 2017 2:40AM 10/02/2017 Oct 02 2017 8:18AM [place] Service Cardiac Catheterization Admit Source Facility Department Emergency department [facility] Physician and Clinical Staff Initial MD Rockwell, Mac[facility] [employer] Tom RN, Kevin RecordAlyson Francis,RT(R) (BS) Scrub Madelyn Sidhu ,RT(R) Procedures Performed Procedure Location (Site) Vessel Name Angiogram LV LV Ventricle Coronary Angiograms LCA Left Coronary Coronary Angiograms RCA Right Coronary Coronary Angiograms DAMON-LAD Left Coronary Coronary Angiograms SVG-OM CIRC Coronary Angiograms SVG-RCA Right Coronary L Heart Cath Wire insertion Fem Art (right) Femoral Art Equipment Time Stamp Collector Description Size Mfg Part Number Used/Scraped TRANSDUCER, TRUWAVE [id number] 08:19 REYEZ MYERS * Used W/STOCKCOCK *[id number] *[id number] *[id number] *[id number] PIGTAIL ANG. 145 INFINITI 534-652S CATHETER *[id number] 08:19 [employer]MS [employer] INDUSTRIES PACK, CCL CUSTOM * Used *[id number] 08:19 [employer]MS [employer] PACER PEN, SKIN DUAL W/ RULER * Used *[id number] 08:19 [employer] MEDICAL SHEATH, FR6.5 PRELUDE 11CM FR 6.5 038ACT Used *[id number] 08:19 [employer] MEDICAL WIRE, 3MMJ .035 180CM 180CM Used *[id number] 08:19 NAMIC MANIFOLD, 4 PORT * Used *[id number] 08:19 [employer] OMNIPAQUE, 350 MG, 150ML 150ML [id number] 08:19 [employer] MEDICAL BLANKET,WARM AIR CCL * Used *[id number] History: Current Medications Medication Dosage/Unit Route Frequency Last Date/Time Taken ASA History: Allergies Allergy Reaction Fish Containing Products Anaphylaxis/HIVES tramadol THROAT SWELLING duloxetine Anaphylaxis MRI PRECAUTION PATIENT HAS A PACEMAKER ASPARTAME HYPERTENSION [place] rash Food Additives ITCHING History: Risk Factors Family History of Hypertension Dyslipidemia Previous MT Previous Heart Failure Premature CAD Yes Yes No No No Prior Valve Prior PCI Prior PCIDate Prior CABG Prior CABGDate Surgery No Yes 12/13/2008 Yes 07/15/2005 Cerebrovascular Peripheral Artery Chronic Lung On Dialysis Diabetes Disease Disease Disease No Yes No Yes No History: Other Current Smoker Method Quit No Cigarettes 2 Years Ago Labs Hgb (g/dl) Hct (%) WBC (l/cumm) Platelets (thousands) 11.60-17.00 35.00-51.00 4.00-11.00 150.00-450.00 15.6 45.3 9.4 206 Glucose (mg/dl) BUN (mg/dl) Creatinine (mg/dl) BUN:Creatinine (1:x) 74.00-106.00 7.00-18.00 0.50-1.30 10.00-20.00 109 13 1.2 10.8 Na (meq/l) K (meq/l) 136.00-145.00 3.50-5.10 138 4.4 INR (PTT:PT) 0.90-1.10 1.2 CPK-MB (ng/ML) 0.50-3.60 Not Drawn Medication Medication Total Dose (Bolus/Oral) Medication Total Dosage/Unit 1% XYLOCAINE 5 mL OXYGEN 2 l/min VERSED 1 mg Medications (Bolus/Oral) Medication Time Given Dosage/Unit Administered By Reason OXYGEN 10/02/2017 8:58:21 AM 2 l/min Kevin Santos RN 2 l/min OXYGEN given in lab by Kevin Santos RN via Nasal. VERSED 10/02/2017 9:00:43 AM 1 mg Kevin Santos RN 1 mg VERSED given in lab by Kevin Santos RN in Left Antecubital via Peripheral IV. 1% XYLOCAINE 10/02/2017 9:01:23 AM 5 mL Macario Rockwell 5 mL 1% XYLOCAINE given in lab by Macario Rockwell in Right Groin via Subcutaneous. Medication (Drip) Medication Time Given Dosage/Unit Concentration/Unit Diluent (ml) Solution IV Solutions 10/02/2017 8:34:41 AM 0 mL (IV) 500 NaCl .9 IV Solutions given in lab by Kvein Santos RN in Left Antecubital via Peripheral IV. Pump/Drip Flow = 30 ml/hr using NaCl .9. Initial Case Assessment Cardiovascular HR Rhythm NIBP Chest Pain 81 reg 112/66 0 Edema Present Skin color Skin Mild Normal Warm Dry Circulatory - Right Pulses Posterior Tibial Femoral 1 1 Scale (0,1,2,3,4,d) Circulatory - Left Pulses Posterior Tibial Femoral 1 3 Scale (0,1,2,3,4,d) Circulatory - Lower Extremities Color Lower Right Color Lower Left Normal Normal Neurological State Oriented to time-place- Alert Moves all extremities person Respiration - General Respiration Rate SpO2 (%) O2 (lpm) (B/min) 16 96 0 Chronological Log Time Study Chronological Log 8:34:19 Patient arrived via Bed. 8:34:20 Patient Name, D.O.B, / Armband Verified By R.N. 8:34:21 Consent signed by the physician and the patient and verified by the [facility] staff. 8:34:21 Pre-op and post- op instructions given; patient acknowledges understanding of instructions. 8:34:22 Verbal Stimulation=2 Physical Stimulation=2 Airway=2 Respiration=2 TOTAL=8. (0=absent, 1=li mited, 2=present) 8:34:24 Presedation assessment performed by [facility] RN. 8:34:38 Patient has been NPO for More than 6Hrs. 8:34:38 Skin Breakdown none per pt 8:34:39 Patient Warmer Placed on the Table. 8:34:40 Ryann Prominences Protected 8:34:41 A # 18 IV was noted in the Antecubital (left). Grade = 0 IV Solutions given in lab by Kevin Santos RN in Left Antecubital via Peripheral IV. Pump/Drip Flow = 30 ml/hr using NaCl 8:34:41 .9. 8:34:42 History and physical on the chart or being dictated. Assessment: Initial Case, HR=81 BPM, Rhythm=reg, SXOF=692/66 mmhg, Chest Pain=0, Edema=Mild, Col or=Normal, Skin = Warm, Dry Right Pulses: Post Tib=1, Femoral=1 Left Pulses: Post Tib=1, Femoral=3 8:34:44 Lower Right Extremities: Color=Normal Lower Left Extremities: Color=Normal Neurological: State=Alert, Ox3, DUGAN Respiration: Resp=16 B/min, SpO2=96 %, O2=0 lpm Vitals capture started with the following parameters, Patient=Adult, Interval=5 min, Initial Pre fdiri=747 mmHg, 8:43:26 Deflation Rate=5 mmHg, Cuff placed on Right Arm 8:44:06 HR=80 bpm, WSDC=613/66 mmhg, SpO2=96.0 %, Resp=24 B/min, Pain=0, Moreno=10, Pimentel=2 8:47:16 Bilateral groins prepped with 2% chlorhexidine, and draped after a 3 minute waiting time. 8:48:47 Reference ECG taken 8:48:57 HR=77 bpm, DPEK=710/63 mmhg, SpO2=95.0 %, Resp=29 B/min, Pain=0, Moreno=10, Pimentel=2 8:53:39 Pressure channel 1 zeroed. 8:53:55 MD paged 8:53:58 HR=75 bpm, URMD=727/57 mmhg, SpO2=92.0 %, Resp=24 B/min, Pain=0, Moreno=10, Pimentel=2 8:55:34 MD arrived 8:58:21 2 l/min OXYGEN given in lab by Kevin Santos RN via Nasal. 8:58:59 HR=73 bpm, AENW=786/61 mmhg, SpO2=90.0 %, Resp=22 B/min, Pain=0, Moreno=10, Pimentel=2 Time Out. Correct patient, correct procedure, correct physician, labs, allergies, and equipment verified with photo lab specialist 9:00:11 team present. Fire risk assesment completed (see hard stop sheet for coding). Time Out Concu rred by MD and individual staff in procedure. 9:00:42 Case Start 9:00:43 1 mg VERSED given in lab by Kevin Santos RN in Left Antecubital via Peripheral IV. 9:01:23 5 mL 1% XYLOCAINE given in lab by Macario Rockwell in Right Groin via Subcutaneous. 9:03:09 Access site was Right Femoral Artery. 9:03:24 A SHEATH, FR6.5 PRELUDE 11CM FR 6.5 was advanced into the Fem Art (right) using the Percutan eous technique. 9:03:58 HR=68 bpm, WWVE=287/60 mmhg, SpO2=95.0 %, Resp=20 B/min, Pain=0, Moreno=10, Pimentel=2 A PIGTAIL ANG. 145 INFINITI CATHETER FR 6 was advanced over a wire. OMNIPAQUE, 350 MG, 150ML 150 ML was 9:04:21 used for injections. Recorded Pressure: LV, HR=69, Condition=Condition 1 9:05:22 (Left Ventricle) LV 83/4/15 9:06:08 The LV was injected at 10 cc/sec for a total of 20. OMNIPAQUE, 350 MG, 150ML 150ML used. Recorded Pressure: LV, Ao, HR=69, Condition=Condition 1 9:06:56 (Left Ventricle) LV 84/5/16, (Aorta) Ao 88/42/59 9:07:54 Catheter was removed A JL 5.0 INFINITI CATHETER FR 6 was advanced over a wire. OMNIPAQUE, 350 MG, 150ML 150ML was use d for 9:07:55 injections. 9:08:59 HR=74 bpm, NIBP=98/55 mmhg, SpO2=94.0 %, Resp=24 B/min, Pain=0, Moreno=10, Pimentel=2 Recorded Pressure: Ao, HR=74, Condition=Condition 1 9:09:16 (Aorta) Ao 80/41/58 9:09:37 The LCA was injected and visualized at various angles. OMNIPAQUE, 350 MG, 150ML 150ML used. 9:09:48 Catheter was removed A JR 4.0 INFINITI CATHETER FR 6 was advanced over a wire. OMNIPAQUE, 350 MG, 150ML 150ML was use d for 9:10:18 injections. 9:12:46 The RCA was injected and visualized at various angles. OMNIPAQUE, 350 MG, 150ML 150ML used. 9:13:30 The SVG-OM was injected and visualized at various angles. OMNIPAQUE, 350 MG, 150ML 150ML use d. 9:13:58 HR=74 bpm, NIBP=98/59 mmhg, SpO2=95.0 %, Resp=14 B/min, Pain=0, Moreno=10, Pimentel=2 9:14:05 The SVG-RCA was injected and visualized at various angles. OMNIPAQUE, 350 MG, 150ML 150ML u sed. 9:14:56 Catheter was removed A AZUL INFINITI CATHETER FR 6 was advanced over a wire. OMNIPAQUE, 350 MG, 150ML 150ML was used for 9:15:04 injections. 9:18:06 The DAMON-LAD was injected and visualized at various angles. OMNIPAQUE, 350 MG, 150ML 150ML used. 9:18:59 HR=74 bpm, SHKC=210/53 mmhg, SpO2=95.0 %, Resp=17 B/min, Pain=0, Moreno=10, Pimentel=2 9:20:21 Catheter was removed 9:23:58 HR=72 bpm, YTBO=246/61 mmhg, SpO2=96.0 %, Resp=17 B/min, Pain=0, Moreno=10, Pimentel=2 9:24:19 An injection in the Fem Art (right) was made through the SHEATH, FR6.5 PRELUDE 11CM FR 6.5. 9:28:59 HR=78 bpm, IFVU=422/62 mmhg, SpO2=91.0 %, Resp=18 B/min, Pain=0, Moreno=10, Pimentel=2 9:34:01 HR=75 bpm, CNCD=840/68 mmhg, SpO2=97.0 %, Resp=19 B/min, Pain=0, Moreno=10, Pimentel=2 9:39:00 HR=67 bpm, NIBP=97/61 mmhg, SpO2=95.0 %, Resp=19 B/min, Pain=0, Moreno=10, Pimentel=2 9:40:15 A WIRE, 3MMJ .035 180CM 180CM was inserted via Fem Art (right). 9:41:54 An injection in the Fem Art (right) was made through the SHEATH, FR6.5 PRELUDE 11CM FR 6.5. 9:42:26 An injection in the Fem Art (right) was made through the SHEATH, FR6.5 PRELUDE 11CM FR 6.5. 9:42:49 An injection in the Fem Art (right) was made through the SHEATH, FR6.5 PRELUDE 11CM FR 6.5. 9:43:42 Case End 9:43:59 HR=69 bpm, NIBP=98/62 mmhg, SpO2=96.0 %, Resp=19 B/min, Pain=0, Moreno=10, Pimentel=2 9:44:42 Catheter(s) removed without difficulty 9:44:54 Bedside Report will be given. 9:44:57 A Left Heart Cath was performed. 9:45:40 Sheath removed; pressure applied to access site. 9:49:02 HR=63 bpm, NIBP=98/58 mmhg, SpO2=97.0 %, Resp=15 B/min, Pain=0, Moreno=10, Pimentel=2 9:54:03 HR=64 bpm, NIBP=97/57 mmhg, SpO2=96.0 %, Resp=22 B/min, Pain=0, Moreno=10, Pimentel=2 9:59:02 HR=62 bpm, NIBP=99/57 mmhg, SpO2=98.0 %, Resp=16 B/min, Pain=0, Moreno=10, Pimentel=2 10:04:01 HR=66 bpm, NIBP=98/61 mmhg, SpO2=96.0 %, Resp=17 B/min, Pain=0, Moreno=10, Pimentel=2 10:08:10 Sterile dressing applied to site 10:09:00 ECKX=013/62 mmhg, Pain=0, Moreno=10, Pimentel=2 10:09:41 Vitals capture stopped. 10:11:56 Patient moved to carrier clinic End Study - Contrast Media Used In Study Contrast Total Opened (mL) Total Used (mL) Total Wasted (mL) Omnipaque 100 100 0 End Study - Maximum Contrast Load Max Contrast Load (mL) 279.9 End Study - Radiation Exposure Fluoro Time (minutes) 4.7 End Study - Sheaths Sheaths Pulled By Sheath Hold Time (min) Madelyn Sidhu End Study - Patient Disposition Complications Transferred To Interventional Outcome No [facility] Holding No attempt made
--- NOTE | 2017-10-02 10:31 | MA ---
cc: Macario Rokcwell MD DATE: 10/02/2017 PROCEDURE PERFORMED: Left heart catheterization, left ventriculography, coronary angiography, right external iliac angiography in multiple views, right femoral arterial sheath placement. DESCRIPTION OF PROCEDURE: The patient was brought to the cardiac catheterization lab in the fasting state. The right groin was prepped and draped in sterile fashion. Using 1% lidocaine for local anesthesia, a 6.5-Italian sheath was inserted in the right femoral artery requiring only a single stick. There was no resistance with guidewire passage. Next, LV pressure was recorded using a pigtail catheter, followed by left ventriculography on pullback. Coronary angiography was completed using a left 5 Kaia for the left coronary artery and a right Kaia for the right coronary artery. Angiography of the 2 vein grafts was performed using the right Kaia. Angiography of the internal mammary bypass was performed using an AZUL catheter. I then obtained angiogram of the right femoral artery via the sheath looking to see if I could do an Angio-Seal. There was what appeared to be a focal dissection in the external iliac. The sheath was pulled back more proximally. A guidewire was placed distally prior to this. Angiography was then obtained in orthogonal views. It looks like a focal ulceration or focal dissection unrelated to the catheterization procedure with a good lumen and good flow and it was felt best not to intervene on this lesion. The sheath is being pulled manually. There were no complications. The patient ran a low blood pressure in the 80s during most of the case. FINDINGS: 1. Hemodynamics: Left ventricular pressure is 84/5 with an end diastolic pressure of 16. Aortic pressure is 80/41 with a mean of 58. There was no gradient during pullback from the left ventricle to the aorta. 2. Left ventriculography: Left ventriculography shows an extensive area of akinesis. It extends along the whole anterior wall with moderate hypokinesis even of the anterobasal segment. The posterior basal segment moves well as does the proximal portion of the diaphragmatic segment but the remaining segments of left ventricle are akinetic. EF is only 10%. There is 1+ mitral regurgitation seen as well. Left ventricle is clearly dilated. 3. Coronary angiography: Left main coronary artery has irregularities of 5%. It bifurcates into the LAD and circumflex vessels. The LAD is totally occluded after the first septal card room manager with about 50% stenosis at the bifurcation of the septal and diagonal branch. Diagonal branch has about 30% stenosis at its origin. There is a very tiny ramus branch which appears normal. The circumflex artery is totally occluded after a small distal circumflex vessel. The major obtuse marginal branch is occluded. The right coronary artery is dominant, proximally has about a 40% stenosis. Just after the acute marginal branch, the right coronary artery is totally occluded. About 1 cm distal to that is evidence for a previous stent, but there is no flow through the distal right. 4. Bypass grafts: The left internal mammary bypass is small caliber, but widely patent to the LAD. It inserts into the mid LAD and there were no stenoses identified. The LAD distally is small caliber. The saphenous vein graft to the major obtuse marginal branch of the circumflex artery is widely patent. [place] marginal branch has about 35% stenosis after graft insertion. Final graft is a sequential graft to the distal right and then to the posterior descending artery branch. The graft itself is large caliber with only slight irregularities. Just after it inserts into the distal right is an eccentric 50-60% stenosis. Distal right fills the large posterolateral branch continuation of the graft and at the posterior descending artery branch which is patent. The PDA branch goes all the way out to the apex and has irregularities only. CONCLUSIONS: 1. Very severely impaired left ventricular function, ejection fraction 10%. 2. Three vessel coronary artery disease. 3. Four out of four patent bypass grafts. RECOMMENDATIONS: Medical therapy. We will add amiodarone to his regimen. MD MAXIMINO Rodriguez/REINA , 09:53 AM , 10:30 AM
--- NOTE | 2017-10-02 13:14 | HHI.DCPOC ---
Discharge Care Plan Diagnosis: (1) AICD discharge (2) CAD (coronary artery disease) (3) HTN (hypertension), benign (4) History of CHF (congestive heart failure) (5) COPD (chronic obstructive pulmonary disease) (6) A-fib Goals to Promote Your Health * To prevent worsening of your condition and complications * To maintain your health at the optimal level Directions to Meet Your Goals Take your medications as prescribed Follow your dietary instruction Follow activity as directed Keep your appointments as scheduled Take your immunizations and boosters as scheduled If your symptoms worsen call your PCP, if no PCP go to Urgent Care Center or Emergency Room Smoking is Dangerous to Your Health. Avoid second hand smoke Call the 24-hour hour crisis hotline for domestic abuse at Aimee Mendoza PA-C Oct 02, 2017 13:14
--- NOTE | 2017-10-02 14:43 | EKG ---
Date Performed: 10/01/2017 Time Performed: 23:33:20 PTAGE: 67 years EKG: ELECTRONIC VENTRICULAR PACEMAKER ABNORMAL RHYTHM ECG Since the PREVIOUS TRACING , no significant change noted PREVIOUS TRACIN06/08/2017 23.51.40 DOCTOR: Rosendo Cedillo Interpretating Date/Time 10/02/2017 14:42:11
[2017-10-02] MEDS: METOPROLOL TARTRATE 25 MG TAB PO SCH (20:40)
[2017-10-02] MEDS ORDERED: ATORVASTATIN 80 MG TAB PO SCH (21:00)
[2017-10-02] MEDS ORDERED: SODIUM CHLORIDE 0.9% FLUSH 10 ML FLUSH IV FLUSH SCH (21:00)
[2017-10-02] MEDS: RESP: ALBUTEROL 2.5 MG/IPRATROPIUM 0.5 MG NEB (PRN) NEB (22:39)
[2017-10-03] VITALS (13 sets, daily range): BP systolic 101–111; BP diastolic 64–66; PULSE 64–88; RESP 18–22; TEMP 98.2; O2SAT 92–94
[2017-10-03] MEDS: RESP: ALBUTEROL 2.5 MG/IPRATROPIUM 0.5 MG NEB (PRN) NEB ×2 (03:03→07:31)
[2017-10-03] MEDS: MENTHOL LOZENGE BUCCAL PRN ×2 (03:48→11:54)
[2017-10-03 05:37] LABS: AUTOMATED NEUTROPHIL # 6.5 TH/MM3 (1.8-7.7); BASOPHIL % 0.4 % (0.0-2.0); EOSINOPHIL # 0.1 TH/MM3 (0-0.4); EOSINOPHIL % 1.1 % (0.0-4.0); HEMATOCRIT 44.6 % (39.0-51.0); HEMOGLOBIN 15.1 GM/DL (13.0-17.0); LYMPH % 13.7 % (9.0-44.0); LYMPHOCYTE # 1.2 TH/MM3 (1.0-4.8); MEAN CELL VOLUME 95.7 FL (80.0-100.0); MEAN CORPUSCULAR HEMOGLOBIN 32.4 PG (27.0-34.0); MEAN CORPUSCULAR HGB CONC 33.8 % (32.0-36.0); MEAN PLATELET VOLUME 10.9 FL (7.0-11.0); MONO % 8.2 % (0.0-8.0); MONOCYTE # 0.7 TH/MM3 (0-0.9); NEUT % 76.6 % (16.0-70.0); PLATELET COUNT 163 TH/MM3 (150-450); RED BLOOD COUNT 4.66 MIL/MM3 (4.50-5.90); WHITE BLOOD COUNT 8.5 TH/MM3 (4.0-11.0)
[2017-10-03 05:55] LABS: BICARBONATE 25.6 MEQ/L (21.0-32.0); CALCIUM 8.2 MG/DL (8.5-10.1); CREATININE 1.1 MG/DL (0.60-1.30)
[2017-10-03] MEDS: DOCUSATE SODIUM 50 MG/SENNA 8.6 MG TAB PO SCH (09:00)
[2017-10-03] MEDS: CLOPIDOGREL 75 MG TAB PO SCH (09:05)
[2017-10-03] MEDS: DIGOXIN 0.125 MG TAB PO SCH (09:05)
[2017-10-03] MEDS: SPIRONOLACTONE 25 MG TAB PO SCH (09:05)
[2017-10-03] MEDS: ASPIRIN EC 81 MG TABEC PO SCH (09:06)
[2017-10-03] MEDS: GABAPENTIN 300 MG CAP PO SCH (09:06)
[2017-10-03] MEDS: METOPROLOL TARTRATE 25 MG TAB PO SCH (09:06)
[2017-10-03] MEDS: LISINOPRIL 5 MG TAB PO SCH (09:07)
[2017-10-03] MEDS: BUDESONIDE-FORMOTEROL 160/4.5 MCG INHALER INH SCH (09:11)
[2017-10-03] MEDS: SODIUM CHLORIDE 0.9% FLUSH 10 ML FLUSH IV FLUSH SCH (09:12)
[2017-10-03] MEDS: FUROSEMIDE 40 MG TAB PO SCH (09:52)
--- NOTE | 2017-10-03 09:58 | PD.CARD.PN ---
Subjective Subjective Remarks c/o being tired Objective Medications Current Medications Medications (Trade) Dose Ordered Sig/Margarita Route Start Time Stop Time Status Last Admin (NS Flush) 2 ml UNSCH PRN IV FLUSH 10/02/17 03:15 (NS Flush) 2 ml BID IV FLUSH 10/02/17 09:00 10/03/17 09:12 (Tylenol) 650 mg Q4H PRN PO 10/02/17 03:15 (Zofran Odt) 4 mg Q6H PRN PO 10/02/17 03:30 (Narcan Inj) 0.4 mg UNSCH PRN IV PUSH 10/02/17 03:15 (Leann-Colace) 1 tab BID PO 10/02/17 09:00 10/02/17 08:22 (Milk Of Magnesia Liq) 30 ml Q12H PRN PO 10/02/17 03:15 (Senokot) 17.2 mg Q12H PRN PO 10/02/17 03:15 (Dulcolax Supp) 10 mg DAILY PRN RECTAL 10/02/17 03:15 (Lactulose Liq) 30 ml DAILY PRN PO 10/02/17 03:15 (Ecotrin Ec) 81 mg DAILY PO 10/02/17 09:00 10/03/17 09:06 (Lipitor) 80 mg HS PO 10/02/17 21:00 10/02/17 20:39 (Symbicort 160-4.5 Mcg Inh) 2 puff Q12HR INH 10/02/17 09:00 10/03/17 09:11 (Plavix) 75 mg DAILY PO 10/02/17 09:00 10/03/17 09:05 (Lanoxin) 0.125 mg DAILY PO 10/02/17 09:00 10/03/17 09:05 (Lasix) 40 mg BID@0800,1800 PO 10/02/17 08:00 10/03/17 09:52 (Neurontin) 600 mg Q12HR PO 10/02/17 09:00 10/03/17 09:06 (Prinivil) 2.5 mg DAILY PO 10/02/17 09:00 10/03/17 09:07 (Ativan) 0.5 mg TID PRN PO 10/02/17 03:15 (Aldactone) 25 mg DAILY PO 10/02/17 09:00 10/03/17 09:05 (Duoneb Neb) 1 ampule Q4HR NEB PRN NEB 10/02/17 03:15 10/03/17 07:31 (Roggen Darryl) 1 lozenge UNSCH PRN BUCCAL 10/02/17 04:30 10/03/17 03:48 Sodium Chloride 1,000 ml @ 30 mls/hr Q24H IV 10/02/17 07:38 10/07/17 07:37 10/02/17 08:23 (Aspirin) 325 mg SCIENTIFIC DIVER PO 10/02/17 07:45 10/06/17 07:44 10/02/17 08:22 (Benadryl) 50 mg SCIENTIFIC DIVER PO 10/02/17 07:45 10/06/17 07:44 10/02/17 08:22 (Valium) 5 mg SCIENTIFIC DIVER PO 10/02/17 07:45 10/06/17 07:44 10/02/17 08:22 (Reglan Inj) 10 mg Q4H PRN IV PUSH 10/02/17 10:00 (Pill Splitter) 1 ea UNSCH PRN OTHER 10/02/17 10:15 (Lopressor) 25 mg Q12HR PO 10/03/17 21:00 Vital Signs / I&O Vital Signs Date Time Temp Pulse Resp B/P (MAP) Pulse Ox O2 Delivery O2 Flow Rate FiO2 10/03/17 07:00 98.2 75 22 101/64 (76) 92 10/03/17 06:00 68 10/03/17 05:00 68 10/03/17 04:00 68 10/03/17 03:50 68 18 111/66 (81) 94 10/03/17 03:00 71 10/03/17 02:00 66 10/03/17 01:00 64 10/03/17 00:00 80 10/02/17 23:28 74 16 104/68 (80) 95 10/02/17 23:00 63 10/02/17 22:00 80 10/02/17 21:00 76 10/02/17 20:00 72 10/02/17 19:55 98.1 63 16 98/72 (81) 95 10/02/17 19:00 69 10/02/17 18:01 64 10/02/17 17:20 98.2 70 17 99/62 (74) 98 10/02/17 17:00 66 10/02/17 10:19 93 Nasal Cannula 2.00 I/O 10/02/17 10/02/17 10/02/17 10/03/17 10/03/17 10/03/17 07:00 15:00 23:00 07:00 15:00 23:00 Intake Total 240 ml 240 ml Balance 240 ml 240 ml Intake Oral 240 ml 240 ml # Voids 2 # Bowel Movements 1 Physical Exam Alert Chest diminished BS CV [id number] RRR no edema Right groin OK, right leg perfusion OK Laboratory Laboratory Tests Test 10/03/17 04:46 White Blood Count 8.5 TH/MM3 Red Blood Count 4.66 MIL/MM3 Hemoglobin 15.1 GM/DL Hematocrit 44.6 % Mean Corpuscular Volume 95.7 FL Mean Corpuscular Hemoglobin 32.4 PG Mean Corpuscular Hemoglobin Concent 33.8 % Red Cell Distribution Width 13.0 % Platelet Count 163 TH/MM3 Mean Platelet Volume 10.9 FL Neutrophils (%) (Auto) 76.6 % Lymphocytes (%) (Auto) 13.7 % Monocytes (%) (Auto) 8.2 % Eosinophils (%) (Auto) 1.1 % Basophils (%) (Auto) 0.4 % Neutrophils # (Auto) 6.5 TH/MM3 Lymphocytes # (Auto) 1.2 TH/MM3 Monocytes # (Auto) 0.7 TH/MM3 Eosinophils # (Auto) 0.1 TH/MM3 Basophils # (Auto) 0.0 TH/MM3 CBC Comment DIFF FINAL Differential Comment Blood Urea Nitrogen 13 MG/DL Creatinine 1.10 MG/DL Random Glucose 159 MG/DL Calcium Level 8.2 MG/DL Sodium Level 138 MEQ/L Potassium Level 3.7 MEQ/L Chloride Level 103 MEQ/L Carbon Dioxide Level 25.6 MEQ/L Anion Gap 9 MEQ/L Estimat Glomerular Filtration Rate 67 ML/MIN Assessment and Plan Problem List: (1) COPD (chronic obstructive pulmonary disease) ICD Codes: J44.9 - Chronic obstructive pulmonary disease Status: Acute (2) CAD (coronary artery disease) ICD Codes: I25.10 - Coronary artery disease Status: Acute (3) Ischemic cardiomyopathy ICD Codes: I25.5 - Generalized ischemic myocardial dysfunction Status: Acute (4) AICD discharge ICD Codes: Z45.02 - Encounter for adjustment and management of automatic implantable cardiac defibrillator Status: Acute Plan: Changed carvedilol to metoprolol 25mg bid. I would like to add amio but have decided against it due to interstitial lung disease evident on CXR. Assessment and Plan OK to DC home. I will F/u 2-3 weeks. Outpatient PFT with [facility]. Macario Rockwell MD Oct 03, 2017 09:58
[2017-10-03] MEDS ORDERED: METO25TA3 PO (10:45)
--- NOTE | 2017-10-03 10:48 | HHI.PR ---
Subjective Remarks Pt seen and examined. AFVSS. Reports feeling tired but otherwise okay and ready to go home. Denies CP, palpitations, abdominal pain, N/V. Lives in a mobile home and states his neighbors are supportive. Considering moving in with one of his sons but they are out of state. Objective Vital Signs Date Time Temp Pulse Resp B/P (MAP) Pulse Ox O2 Delivery O2 Flow Rate FiO2 10/03/17 07:00 67 10/03/17 07:00 98.2 75 22 101/64 (76) 92 10/03/17 06:00 68 10/03/17 05:00 68 10/03/17 04:00 68 10/03/17 03:50 68 18 111/66 (81) 94 10/03/17 03:00 71 10/03/17 02:00 66 10/03/17 01:00 64 10/03/17 00:00 80 10/02/17 23:28 74 16 104/68 (80) 95 10/02/17 23:00 63 10/02/17 22:00 80 10/02/17 21:00 76 10/02/17 20:00 72 10/02/17 19:55 98.1 63 16 98/72 (81) 95 10/02/17 19:00 69 10/02/17 18:01 64 10/02/17 17:20 98.2 70 17 99/62 (74) 98 10/02/17 17:00 66 I/O 10/02/17 10/02/17 10/02/17 10/03/17 10/03/17 10/03/17 07:00 15:00 23:00 07:00 15:00 23:00 Intake Total 240 ml 240 ml Balance 240 ml 240 ml Intake Oral 240 ml 240 ml # Voids 2 # Bowel Movements 1 Result Diagram: 10/03/176 10/03/17445 Objective Remarks GENERAL: WN, WD male resting in bed in [facility]. SKIN: Warm and dry. HEENT: AT/NC. Pupils equal and round. MMM. HEART: RRR no m/r/g. LUNGS: CTAB without wheezes or crackles. ABDOMEN: +BS, soft, NT, ND. EXTREMITIES: No LE edema or calf tenderness. NEURO: Awake and alert. Nonfocal. PSYCH: Appropriate mood and affect. A/P Problem List: (1) AICD discharge ICD Code: Z45.02 - Encounter for adjustment and management of automatic implantable cardiac defibrillator Status: Acute (2) Ischemic cardiomyopathy ICD Code: I25.5 - Generalized ischemic myocardial dysfunction Status: Chronic (3) CAD (coronary artery disease) ICD Code: I25.10 - Coronary artery disease Status: Chronic (4) HTN (hypertension), benign ICD Code: I10 - Benign hypertension Status: Chronic (5) Tobacco abuse ICD Code: Z72.0 - Tobacco use Status: Chronic Assessment and Plan 67 YOWM with COPD, CHF with AICD, HTN, HLD, and CAD admitted 10/02 after his AICD fired will driving home from work. His AICD check showed that he was shocked for ventricular tachycardia with rate of 194 bpm. Cardiology was consulted and patient underwent cardiac catheterization on 10/02. 1. AICD shock - Cardiology consulted - Cardiac cath yesterday showing very severely impaired LV function with EF 10% , 3V disease, and four out of five patent bypass grafts - Medical therapy recommended and changed carvedilol to metoprolol - Cleared by cardiology 2. Ischemic cardiomyopathy, CAD - See above - Continue YUMI and spironolactone - Continue digoxin 3. HTN - Stable, continue current meds 4. HLD - Continue statin 5. COPD - Stable - Continue home inhalers 6. Tobacco abuse - Counseled on tobacco cessation Discharge Planning Discharge home today Susan Reeves MD Oct 03, 2017 10:48
[2017-10-03] MEDS ORDERED: METOPROLOL TARTRATE 25 MG TAB PO SCH (21:00)
== END 2017-10-03 12:36 | disposition home or self-care (01) ==
LOC: NEPE 23:24 → NEDA 10-02 02:40 → NEPFCDU 10-02 03:21 → HCIS 10-02 08:31
PROVIDERS: ADMIT Family Medicine; ATTEND Family Medicine
DX: I47.2 Ventricular tachycardia (principal); I48.2 Chronic atrial fibrillation; I25.10 Atherosclerotic heart disease of native coronary artery without angina pectoris; I11.0 Hypertensive heart disease with heart failure; I50.22 Chronic systolic (congestive) heart failure; I34.0 Nonrheumatic mitral (valve) insufficiency; E78.5 Hyperlipidemia, unspecified; I25.2 Old myocardial infarction; I25.5 Ischemic cardiomyopathy; J44.9 Chronic obstructive pulmonary disease, unspecified; J84.9 Interstitial pulmonary disease, unspecified; G62.9 Polyneuropathy, unspecified; F41.9 Anxiety disorder, unspecified; F32.9 Major depressive disorder, single episode, unspecified; Z95.810 Presence of automatic (implantable) cardiac defibrillator; Z86.73 Personal history of transient ischemic attack (TIA), and cerebral infarction without residual deficits; Z79.02 Long term (current) use of antithrombotics/antiplatelets; Z95.1 Presence of aortocoronary bypass graft; Z79.899 Other long term (current) drug therapy; Z79.82 Long term (current) use of aspirin
CPT/HCPCS: 71045; 80048; 80053; 82550; 83735; 84484; 85025; 85610; 85730; 93005; 93459; 94640; 94664; 96360; 99152; 99153; 99285; C1769; C1893; G0278; G0378; J1644; J2250; J3010; J7030; Q0163; Q9967